=== PATIENT | female | born 1940 | race Two or more races ===

== ENCOUNTER → 2016-04-15 | Outpatient (CLI) | payer MEDICARE, MEDICAID ==
[~2016-04-15] MED LIST: FURO40TA4 PO; LISI-338 PO; METF500T4 PO; POTA20TA4 PO
--- NOTE | 2016-04-15 20:05 | CARD ---
APPROVED REPORT EXAM: Two-dimensional and M-mode echocardiogram with Doppler and color Doppler. Other Information Quality : GoodHR: 85bpm Rhythm : NSR INDICATION Dyspnea Peripheral Edema Hypertension/HCVD Chest Pain 2D DIMENSIONS RVDd2.3 (2.9-3.5cm)Left Atrium(2D)4.7 (1.6-4.0cm) IVSd0.9 (0.7-1.1cm)Aortic Root(2D)3.1 (2.0-3.7cm) LVDd4.9 (3.9-5.9cm)LVOT Diameter2.2 (1.8-2.4cm) PWd0.9 (0.7-1.1cm)LVDs4.4 (2.5-4.0cm) FS (%) 10.0 %SV24.6 ml LVEF(%)21.8 (>50%) Aortic Valve AoV Peak Mohit.118.4cm/sAoV VTI18.9cm AO Peak GR.5.6mmHgLVOT Peak Mohit.100.4cm/s AO Mean GR.3mmHgAVA (VMAX)3.17cm2 Mitral Valve MV E Ckitivqx505.4cm/sMV E Peak Gr.6mmHg MV DECEL [id number] A Lsbitryi38.1cm/s MV E Mean Gr.3mmHgE/A Ratio1.7 MV A [id number] Tricuspid Valve TR P. Otlljwmm736gf/sRAP QOCOLWQY3dgVg TR Peak Gr.87llPwGVIZ28doKn LEFT VENTRICLE The left ventricle is normal size. There is a mild in increase in left ventricular wall thickness. Le ft ventricle systolic function is moderately impaired. The Ejection Fraction is 25-30%. There is mode rate hypokinesis in the anteroseptal wall. There is hypokinesis in the apexand anterior wall. Transmi tral Doppler flow pattern is indicative of a restrictive diastolic dysfunction. There is no ventricul ar septal defect visualized. RIGHT VENTRICLE The right ventricle is normal size. The right ventricular systolic function is normal. ATRIA The left atrium is mildly dilated. The right atrium size is normal. The interatrial septum is intact with no evidence for an atrial septal defect or patent foramen ovale as noted on 2-D or Doppler imagi ng. AORTIC VALVE The aortic valve is trileaflet. The aortic valve is mildly thickened but opens well. Doppler and Bunn r Flow revealed no significant aortic regurgitation. There is no significant aortic valvular stenosis . MITRAL VALVE Mitral annular calcification is mild. There is no evidence of mitral valve prolapse. There is no mitr al valve stenosis. Doppler and Color Flow revealed mild mitral regurgitation. TRICUSPID VALVE The tricuspid valve is normal in structure. Doppler and Color Flow revealed moderate tricuspid regurg itation. There isevere pulmonary hypertension. The PA pressure was estimated at 70 mmHg. PULMONIC VALVE The pulmonary valve is normal in structure. Doppler and Color Flow revealed trace to mild pulmonic va lvular regurgitation. GREAT VESSELS The aortic root is normal in size. The ascending aorta is mildly dilated at 3.7 cm. The IVC is normal in size and collapses >50% with inspiration. PERICARDIAL EFFUSION There is mild pleural effusion. There is no pericardial effusion. Critical Notification Critical Value: No <Conclusion> The left ventricle is normal size. There is moderate hypokinesis in the anteroseptal wall. There is hypokinesis in the apexand anterior wall. There is a Grade II diastolic dysfunction with pseudonormalization There is no pericardial effusion. There is no mitral stenosis and a mild to moderate mitral regurgitation. The left atrium is enlarged. There is no aortic stenosis or regurgitation. Therright ventricle is not enlarged. Doppler and Color Flow revealed moderate tricuspid regurgitation. There isevere pulmonary hypertension. The PA pressure was estimated at 70 mmHg. There is mild pulmonic regurgitation
== END | disposition home or self-care (01) ==
LOC: ECHO 07:54
PROVIDERS: ATTEND Physician Assistant Medical
DX: I10 Essential (primary) hypertension (principal); R07.9 Chest pain, unspecified; R06.02 Shortness of breath; R60.9 Edema, unspecified; I27.2 Other secondary pulmonary hypertension; I34.0 Nonrheumatic mitral (valve) insufficiency; J90 Pleural effusion, not elsewhere classified; I37.1 Nonrheumatic pulmonary valve insufficiency
CPT/HCPCS: 93306

== ENCOUNTER 2016-05-02 22:16 | Inpatient (IN) | payer MEDICARE, MEDICAID ==
[~2016-05-02] VITALS: Ht 152.4 cm; Wt 74.4 kg
[2016-05-02] MEDS ORDERED: IPRATRPIUM/ALBUTEROL 0.5/2.5MG 3 ML NEBU. NEB ONE (22:45)
[2016-05-02 22:55] LABS: BASO % 0 % (0-3); EOS % 1 % (0-3); HEMATOCRIT 22.4 % (36.0-47.0); LYMPH # 1.3 x10^3/uL (1.0-4.8); LYMPH % 21 % (24-48); MEAN CORPUSCULAR HEMOGLOBIN 19 pg (25-35); MEAN CORPUSCULAR HGB CONC 30 g/dL (31-37); MEAN CORPUSCULAR VOLUME 64 fL (79-100); MONO % 11 % (0-9); NEUT % 67 % (31-73); PLATELET COUNT 321 x10^3/uL (140-400); RED BLOOD COUNT 3.49 x10^6/uL (3.50-5.40); RED CELL DISTRIBUTION WIDTH 18.7 % (11.5-14.5); WHITE BLOOD COUNT 6.4 x10^3/uL (4.0-11.0)
[2016-05-02 22:58] LABS: HEMOGLOBIN 6.7 g/dL (12.0-15.5)
[2016-05-02 23:04] LABS: CALCIUM 8.9 mg/dL (8.5-10.1); CREATININE 1.1 mg/dL (0.6-1.0); GFR 48.7; POTASSIUM 3.5 mmol/L (3.5-5.1)
[2016-05-02 23:10] LABS: ALBUMIN 3.1 g/dL (3.4-5.0); DIRECT BILIRUBIN 0.2 mg/dL (0.0-0.2); TOTAL BILIRUBIN 0.5 mg/dL (0.2-1.0); TOTAL PROTEIN 7.2 g/dL (6.4-8.2)
[2016-05-02 23:28] LABS: ANISOCYTOSIS SLIGHT; HYPOCHROMIA MARKED; MICROCYTOSIS MARKED; PLT ESTIMATE ADEQUATE (ADEQUATE); POLYCHROMASIA SLIGHT; SCHISTOCYTES OCC
[2016-05-02 23:37] LABS: INR 1.2 (0.8-1.1); PROTHROMBIN TIME PATIENT 14.6 SEC (11.7-14.0)
[2016-05-03] VITALS (18 sets, daily range): BP systolic 71–103; BP diastolic 47–75
[2016-05-03] MEDS ORDERED: ASPIRIN 81 MG TAB.CHEW PO ONE
[2016-05-03] MEDS ORDERED: MORPHINE SULFATE 2 MG/ML DISP.SYRIN. IV PRN
[2016-05-03] MEDS ORDERED: FUROSEMIDE 40 MG/4 ML VIAL IVP ONE
[2016-05-03] MEDS ORDERED: ONDANSETRON PF 4 MG/2 ML VIAL. IV PRN
[2016-05-03] MEDS ORDERED: POTA20TA4 PO (01:26)
[2016-05-03] MEDS ORDERED: LISI-338 PO (01:26)
[2016-05-03] MEDS ORDERED: METF500T4 PO (01:26)
[2016-05-03] MEDS ORDERED: FURO40TA4 PO (01:26)
--- NOTE | 2016-05-03 01:32 | PHYS DOC ---
Past Medical History Past Medical History: CHF, COPD, Diabetes-Type II, Other Additional Past Medical Histor: neuropathy Past Surgical History: Appendectomy, Cholecystectomy Alcohol Use: None Drug Use: None Adult General Chief Complaint Chief Complaint: SHORTNESS OF BREATH HPI HPI 75-year-old female presenting to the emergency department today with worsening shortness of breath. This started approximately 3 days ago she has had a dry hacking cough as well. She's noticed her leg swelling worse over the past few days. She was started on a diuretic by her doctor which initially started to improve her symptoms however over the past 3 days she has gotten worse. She has taken her inhaler at home with minimal relief. Location lungs. Duration intermittent. Worse with exertion. Worse at night. Review of systems is negative for chest pain nausea vomiting diaphoresis. She denies pain in her back or abdomen. She reports being pain-free. All other review of systems is negative unless otherwise noted in history of present illness. Review of Systems Review of Systems SEE ABOVE. Current Medications Current Medications Current Medications Medications (Trade) Dose Ordered Sig/Julio Start Time Stop Time Status Last Admin Dose Admin Albuterol/ Ipratropium (Duoneb) 3 ml 1X ONCE 05/02/16 22:45 05/02/16 23:51 DC 05/02/16 22:50 3 ML Allergies Allergies Allergies Coded Allergies Type Severity Reaction Last Updated Verified Penicillins Allergy Intermediate 05/02/16 Yes ibuprofen Allergy Intermediate 05/02/16 Yes Physical Exam Physical Exam Constitutional: Well developed, well nourished, patient has increased work of breathing and is tachypneic in the emergency department. HENT: Normocephalic, atraumatic, bilateral external ears normal, oropharynx moist, no oral exudates, nose normal. [] Eyes: PERRLA, EOMI, conjunctiva normal, no discharge. [] Neck: Normal range of motion, no tenderness, supple, no stridor. [] Cardiovascular:Heart rate regular rhythm, no murmur Lungs & Thorax: Patient has fine and coarse crackles on inspiration and expiration worse in the bases of the lungs. Abdomen: Bowel sounds normal, soft, no tenderness, no masses, no pulsatile masses. [] Skin: Warm, dry, no erythema, no rash. Back: No tenderness, no CVA tenderness. [] Extremities: No tenderness, no cyanosis, no clubbing, ROM intact, 3+ edema Neurologic: Alert and oriented X 3, normal motor function, normal sensory function, no focal deficits noted. [] Psychologic: Affect normal, judgement normal, mood normal. Current Patient Data Vital Signs Vital Signs Date Time Temp Pulse Resp B/P Pulse Ox O2 Delivery O2 Flow Rate FiO2 05/02/16 23:30 96 25 98/56 96 Nasal Cannula 2 05/02/16 22:36 97.9 97.9 Lab Values Laboratory Tests Test 05/02/16 22:45 White Blood Count 6.4x10^3/uL (4.0-11.0) Red Blood Count 3.49x10^6/uL (3.50-5.40) L Hemoglobin 6.7g/dL (12.0-15.5) *L Hematocrit 22.4% (36.0-47.0) L Mean Corpuscular Volume 64fL (79-100) L Mean Corpuscular Hemoglobin 19pg (25-35) L Mean Corpuscular Hemoglobin Concent 30g/dL (31-37) L Red Cell Distribution Width 18.7% (11.5-14.5) H Platelet Count 321x10^3/uL (140-400) Neutrophils (%) (Auto) 67% (31-73) Lymphocytes (%) (Auto) 21% (24-48) L Monocytes (%) (Auto) 11% (0-9) H Eosinophils (%) (Auto) 1% (0-3) Basophils (%) (Auto) 0% (0-3) Neutrophils # (Auto) 4.3x10^3uL (1.8-7.7) Lymphocytes # (Auto) 1.3x10^3/uL (1.0-4.8) Monocytes # (Auto) 0.7x10^3/uL (0.0-1.1) Eosinophils # (Auto) 0.0x10^3/uL (0.0-0.7) Basophils # (Auto) 0.0x10^3/uL (0.0-0.2) Platelet Estimate Adequate (ADEQUATE) Polychromasia Slight Hypochromasia Marked Anisocytosis Slight Microcytosis Marked Schistocytes Occ Prothrombin Time 14.6SEC (11.7-14.0) H Prothrombin Time INR 1.2 (0.8-1.1) H PTT 30SEC (24-38) Sodium Level 134mmol/L (136-145) L Potassium Level 3.5mmol/L (3.5-5.1) Chloride Level 97mmol/L (98-107) L Carbon Dioxide Level 23mmol/L (21-32) Anion Gap 14 (6-14) Blood Urea Nitrogen 27mg/dL (7-20) H Creatinine 1.1mg/dL (0.6-1.0) H Estimated GFR (Cockcroft-Gault) 48.7 Glucose Level 144mg/dL (70-99) H Calcium Level 8.9mg/dL (8.5-10.1) Total Bilirubin 0.5mg/dL (0.2-1.0) Direct Bilirubin 0.2mg/dL (0.0-0.2) Aspartate Amino Transferase (AST) 32U/L (15-37) Alanine Aminotransferase (ALT) 15U/L (14-59) Alkaline Phosphatase 79U/L (46-116) Troponin I Quantitative 3.986ng/mL (0.000-0.055) YZ-Czp-I-Type Natriuretic Peptide 45930ji/mL (0-124) H Total Protein 7.2g/dL (6.4-8.2) Albumin 3.1g/dL (3.4-5.0) L Lipase 164U/L (73-393) Laboratory Tests 05/02/16 22:45 Laboratory Tests 05/02/16 22:45 EKG EKG [] 2 EKGs performed on this patient. Initial EKG at 2030 performed while the patient was tachypneic and shows wandering baseline making isoelectric measuring imprecise. This EKG shows a sinus rhythm with a tachycardic rate. Anterior leads are difficult to interpret with varying baseline. Lateral leads and inferior leads are isoelectric. Repeat EKG performed at 2324 shows isoelectric in the anterior leads. This EKG does not meet STEMI criteria. I discussed the case with Dr. Gary who recommended treatment with aspirin and serial troponins. Radiology/Procedures Radiology/Procedures Chest x-ray shows pulmonary edema. [] Course & Med Decision Making Course & Med Decision Making Pertinent Labs and Imaging studies reviewed. (See chart for details) [] 75-year-old female presenting to the emergency department today with shortness of breath cough and weight gain. Vital signs showed hypoxia which improved after nasal cannula placement. The patient's initial EKG shows variable baseline in the anterior leads. Repeat EKG shows isoelectric ST segments. Patient was given aspirin. Discussed the case with our staff analyst team Dr. Gary. The patient was given Lasix. Chest x-ray shows pulmonary edema. Troponin positive. Hemoglobin significantly low. Patient denies dark stools. Rectal exam shows no blood on gross evaluation. Fecal occult testing sent. Transfusion ordered. Serial troponins ordered. Patient was then admitted to our hospital for further evaluation workup and care. Cardiology and pulmonology consult placed. Dragon Disclaimer Dragon Disclaimer This electronic medical record was generated, in whole or in part, using a voice recognition dictation system. Departure Departure Impression: Primary Impression: Hypoxia Additional Impressions: CHF exacerbation Anemia Disposition: ADMITTED INPATIENT Admitting Physician: Jeronimo Elizondo Condition: STABLE Referrals: JERONIMO ELIZONDO MD (PCP) Critical Care Time Critical care time was [40] minutes exclusive of procedures. Time was spent evaluating the patient, discussing with consulting providers, ordering the administration of medications, ordering the administration of blood products, discussing with the admitting provider and documenting. Problem Qualifiers VIC ABDI MD May 03, 2016 01:32
[2016-05-03] MEDS ORDERED: FUROSEMIDE 20 MG/2 ML VIAL IVP ONE (07:45)
--- NOTE | 2016-05-03 07:50 | PDOC ---
Provider Note Provider Note [id number] acute resp fail abnl cxr aute chf copd w mild ae anemia cardiology, gi consult, pepid RICHIE Ulrich MD May 03, 2016 07:50
--- NOTE | 2016-05-03 08:02 | RAD ---
Indication: Short of breath, history of pleural effusion, chest pain Technique: Upright portable chest radiograph was obtained. No comparison is available. Findings: Heart is borderline enlarged. Pulmonary vasculature and interstitial lung markings are increased. Costophrenic angles are minimally blunted. Presumed apical scarring bilaterally is relatively symmetric. Leads overlie the patient. Impression: Findings most suggestive of CHF.
[2016-05-03] MEDS: IPRATRPIUM/ALBUTEROL 0.5/2.5MG 3 ML NEBU. NEB SCH ×4 (08:30→19:18)
[2016-05-03] MEDS ORDERED: FAMOTIDINE 20 MG/2 ML VIAL IVP SCH (09:00)
--- NOTE | 2016-05-03 09:08 | RAD ---
Clinical Indication: Bilateral lower extremity edema, short of air. Technique: Study is dated May 03, 2016. Bal scale, color flow and spectral waveform analysis was performed of both lower extremities with and without compression. Findings: There is normal compressibility of all visualized vein segments. No evidence of DVT is present on grayscale or color images. There is normal phasicity of waveform. There is normal augmentation . Impression: No evidence of deep vein thrombosis in either lower extremity.
--- NOTE | 2016-05-03 09:11 | EKG ---
[facility] [address] [place] [address] Test Date: 2016-05-02 Test Time: 22:30:29 Pat Name: SATHISH MCGEE Department: Room: 105 1 Gender: F Carbonizer: : 1940 Requested By: VIC ABDI Order Number: [id number] Reading MD: Nanda Luna Measurements Intervals [place] Rate: 102 P: 31 VA: 142 QRS: -74 QRSD: 118 T: 72 QT: 342 QTc: 450 Interpretive Statements SINUS TACHYCARDIA ABNORMAL LEFT AXIS DEVIATION QRS(T) CONTOUR ABNORMALITY CONSISTENT WITH ANTERIOR INFARCT AGE UNDETERMINED ABNORMAL ECG RI6.01 No previous ECG available for comparison Electronically Signed On 05-03-2016 20:32:10 CDT by Nanda Luna
--- NOTE | 2016-05-03 09:11 | CONS ---
DATE OF CONSULTATION: 05/03/2016 PULMONARY CRITICAL CARE CONSULTATION NOTE LOCATION: The patient is in ICU. CHIEF COMPLAINT: I was asked to see this 75-year-old lady for acute respiratory failure. HISTORY OF PRESENT ILLNESS: She has history of 97-mett-muct smoking, continues to smoke about 1 pack per day. She has had shortness of breath and lower extremity edema for the past 3 weeks. She has had chest pain at times. Her lower extremity edema improved with taking Lasix, which was prescribed by her primary physician. Her shortness of breath did increase as she presented to the Emergency Room. She was admitted for further evaluation. She does have cough with czvrp-my-bjxnjq sputum production. She has had runny nose. She denies fever or chills. She has had occasional wheezing. PAST MEDICAL HISTORY: COPD, diabetes mellitus. PAST SURGICAL HISTORY: Appendectomy, cholecystectomy. ALLERGIES: PENICILLIN, IBUPROFEN. MEDICATIONS: Currently she is on aspirin. SOCIAL HISTORY: History of 33-bdlu-vmyf smoking, continues to smoke 1 pack per day. FAMILY HISTORY: Positive for asthma. REVIEW OF SYSTEMS: As mentioned above. The patient's hemoglobin was 6.7. The patient was given 2 units of blood. Other systems are otherwise negative. PHYSICAL EXAMINATION: GENERAL: This is a well-developed lady. VITAL SIGNS: Her O2 saturation on 2 liters of oxygen is 96%, respiratory rate 22, heart rate 83, blood pressure 94/75, temperature 97.7. HEENT: Normocephalic, atraumatic. Pupils are equal, round, and reactive to light. Throat is clear. Nose is clear. NECK: Positive JVD. No lymphadenopathy or thyromegaly. CARDIOVASCULAR: Regular rate and rhythm. PMI is not displaced. Distant heart sounds. CHEST: Inspection is normal. LUNGS: There are bibasilar crackles, a few end expiratory wheezing, dullness at the bases. ABDOMEN: Soft. Bowel sounds are good. There is no mass. EXTREMITIES: There is 2-3 lower extremity edema. LYMPHATICS: There is no lymphadenopathy. NEUROLOGIC: Alert and oriented x 3. SKIN: Chronic changes. LABORATORY DATA: I reviewed the following lab data: Chest x-ray shows increased vascular marking. WBC 6.4, hemoglobin 6.7, platelets 321. Sodium 134, potassium 3.5, chloride 97, CO2 is 23, BUN 27, creatinine 1.1, glucose 144, total bilirubin 0.5, AST 32, ALT 15, alkaline phosphatase 79. BNP 23,898, troponin 3.98. IMPRESSION: 1. Acute hypoxemic respiratory failure, multifactorial in etiology. 2. Abnormal chest x-ray. 3. Acute congestive heart failure, systolic versus diastolic. 4. Elevated troponin? and non-ST elevation myocardial infarction. 5. Acute kidney injury. 6. Anemia? etiology. 7. Chronic obstructive pulmonary disease with mild acute exacerbation. 8. Tobacco habituation. FINAL RECOMMENDATION: 1. I had a long discussion with her regarding smoking cessation. I have advised her to stop smoking forever. 2. Start bronchodilator. 3. Start Pulmicort. She may require systemic steroid. 4. Cardiology is consulted. She would require an echocardiogram as soon as possible and evaluation by software development test engineer as soon as possible. 5. I do recommend GI consultation. Meanwhile, I do start on Pepcid IV. 6. I do recommend lower extremity venous Doppler. 7. Monitor respiratory status very closely. The findings and recommendations were discussed with the patient and RN. I have answered all of the patient's questions. She understood and agreed to proceed with the plan. Thank you very much for allowing me to participate in care of this very nice lady. ISAAK LIMON DO DR: REBA/madison JOB#: [id number] / [id number]
--- NOTE | 2016-05-03 09:40 | EKG ---
[facility] [address] [place] [address] Test Date: 2016-05-02 Test Time: 23:24:28 Pat Name: SATHISH MCGEE Department: Room: 105 1 Gender: F Piano Instructor: : 1940 Requested By: DOYLE VILLA Order Number: [id number] Reading MD: Nanda Luna Measurements Intervals [place] Rate: 91 P: 167 [place]: 142 QRS: -55 QRSD: 120 T: 71 QT: 392 QTc: 484 Interpretive Statements SINUS RHYTHM ABNORMAL LEFT AXIS DEVIATION INTRA VENTRICULAR CONDUCTION DEFECT CONSIDER RIGHT VENTRICULAR HYPERTROPHY T ABNORMALITY IN HIGH LATERAL LEADS ABNORMAL ECG RI6.01 No previous ECG available for comparison Electronically Signed On 05-04-2016 15:07:58 CDT by Nanda Luna
[2016-05-03] MEDS ORDERED: HEPARIN for IV BOLUS 10,000 UNIT/10 ML VIAL. IV PRN (11:15)
[2016-05-03 11:28] LABS: BASO % 1 % (0-3); EOS % 1 % (0-3); HEMATOCRIT 29.1 % (36.0-47.0); HEMOGLOBIN 9.1 g/dL (12.0-15.5); LYMPH # 0.7 x10^3/uL (1.0-4.8); LYMPH % 9 % (24-48); MEAN CORPUSCULAR HEMOGLOBIN 21 pg (25-35); MEAN CORPUSCULAR HGB CONC 31 g/dL (31-37); MEAN CORPUSCULAR VOLUME 68 fL (79-100); MONO % 9 % (0-9); NEUT % 80 % (31-73); PLATELET COUNT 314 x10^3/uL (140-400); RED BLOOD COUNT 4.25 x10^6/uL (3.50-5.40); WHITE BLOOD COUNT 7.6 x10^3/uL (4.0-11.0)
--- NOTE | 2016-05-03 11:51 | CONS ---
DATE OF CONSULTATION: 05/03/2016 REASON FOR CONSULTATION: Ojm-ET-fytmgvvvj myocardial infarction. HISTORY OF PRESENT ILLNESS: The patient is a pleasant 75-year-old woman who comes in to the hospital with progressive dyspnea. She reports that over the course of the last 4-5 weeks she has had worsening dyspnea on exertion. She does not have any significant angina. Upon arrival to the ER yesterday, she was noted to have an elevated troponin to approximately 3. Unfortunately, at the same time, she also had anemia with a hemoglobin of 6.7. She had an echocardiogram prior to presenting to the ER approximately 2-3 weeks ago and she was noted to have severe LV systolic dysfunction with ingkgodd-ai-gnwamd pulmonary hypertension. She was due to see my partner, Dr. Ramos, in clinic next week, but unfortunately, due to progressive symptoms, arrived in the hospital. PAST MEDICAL HISTORY: 1. Diabetes. 2. Hypertension. SOCIAL HISTORY: The patient takes care of her 11-year-old grandchild. She used to be a smoker, but quit 6 weeks ago. She denies any alcohol or illicit drug use. She has six children. FAMILY HISTORY: Noncontributory. ALLERGIES: TO PENICILLINS AND IBUPROFEN. MEDICATIONS: Include: 1. Lasix 40 mg IV push x 1 today. 2. Aspirin 325 mg, given once. REVIEW OF SYSTEMS: Negative for 10 out of 14 systems reviewed, unless otherwise mentioned above in the HPI. PHYSICAL EXAMINATION: VITAL SIGNS: Afebrile, 100, 24, 93/54, pulse ox 100% on 2 liters. GENERAL: She is alert and oriented, but in mild distress from her dyspnea. HEAD AND NECK: Exam is unremarkable. CARDIAC: Regular rate and rhythm without any significant murmurs, rubs, gallops. LUNGS: Fairly clear except for mild bibasilar rales. ABDOMEN: Soft, nontender, nondistended. EXTREMITIES: Mild to trace edema. NEUROLOGIC: No focal deficits. MUSCULOSKELETAL: No trauma. DIAGNOSTIC STUDIES: Hemoglobin 6.7, repeat study pending; platelets 321. Creatinine 1.1, troponin 3.986, now increased to 4.8. INR 1.2. Lower extremity DVT scan does not reveal any significant pathology. Prior echocardiogram demonstrates EF of 30% with severe anteroseptal hypokinesis and wife-vz-dkxqpqva mitral and tricuspid regurgitation with severe pulmonary hypertension. IMPRESSION: 1. Acute on chronic systolic heart failure. 2. Severe pulmonary hypertension. 3. Moderate valvular heart disease including tricuspid and mitral regurgitation. 4. Qdr-HF-mdehqklxp myocardial infarction. 5. Diabetes. 6. Anemia. RECOMMENDATIONS: 1. We will obtain stat CBC and repeat q. 6 hours and monitor her hemoglobin. 2. For her mar-NU-itvdkbfrz myocardial infarction, we will start her on heparin drip and monitor her CBCs. Continue ASA 81mg daily. 3. She will ultimately benefit from a cardiac catheterization, but we will wait until stabilization of her hemoglobin. She did not have any obvious symptoms suggestive of lower GI or upper GI bleeding. She has fairly normal other cell lines otherwise with normal platelets, and therefore, suspect that she will likely do okay with cardiac catheterization and anticoagulation and antiplatelet therapy. 4. Consult GI to rule out occult bleeding issues. We will keep her in the ICU and monitor her closely and plan on evaluation on Thursday with a left and right heart cath. Thank you for this consultation. BEAU MARY MD DR: DC/madison JOB#: [id number] / [id number] TOMI
[2016-05-03] MEDS: HEPARIN 25,000UTS/500ML PREMIX 500 ML IV PRN (11:53)
[2016-05-03] MEDS: BUDESONIDE 0.5 MG/2 ML NEBU NEB SCH ×2 (12:08→19:18)
--- NOTE | 2016-05-03 13:26 | PDOC2 ---
CONSULT Date of Consult Date of Consult DATE: 05/03/16 TIME: 13:24 Reason for Consult Reason for Consult: Chronic blood loss anemia with nonstemi Current Problem List Problem List Problems Medical Problems: (1) Anemia Status: Acute (2) CHF exacerbation Status: Acute (3) Hypoxia Status: Acute Current Medications Current Medications Current Medications Albuterol/ Ipratropium (Duoneb) 3 ml 1X ONCE NEB Last administered on 22:50; Start 05/02/16 at 22:45; Stop 05/02/16 at 23:51; Status DC Aspirin (Children'S Aspirin) 324 mg 1X ONCE PO Last administered on 05/03/16 00:11; Start 05/03/16 at 00:00; Stop 05/03/16 at 00:01; Status DC Furosemide (Lasix) 40 mg 1X ONCE IVP Last administered on 05/03/16 00:11; Start 05/03/16 at 00:00; Stop 05/03/16 at 00:01; Status DC Ondansetron HCl (Zofran) 4 mg PRN Q8HRS PRN IV NAUSEA/VOMITING; Start 05/03/16 at 00:00; Stop 05/03/16 at 23:59 Morphine Sulfate 2 mg PRN Q2HR PRN IV SEVERE PAIN; Start 05/03/16 at 00:00; Stop 05/03/16 at 23:59 Famotidine (Pepcid) 20 mg DAILY IVP Last administered on 05/03/16 09:00; Start 05/03/16 at 09:00; Stop 05/03/16 at 11:41; Status DC Furosemide (Lasix) 20 mg 1X ONCE IVP Last administered on 05/03/16 08:17; Start 05/03/16 at 07:45; Stop 05/03/16 at 07:46; Status DC Albuterol/ Ipratropium (Duoneb) 3 ml RTQID NEB Last administered on 05/03/16 12:08; Start 05/03/16 at 08:00 Budesonide 0.5 mg 0.5 mg RTBID NEB Last administered on 05/03/16 12:08; Start 05/03/16 at 08:00 Heparin Sodium/ Dextrose 500 ml @ 0 mls/hr CONT PRN IV SEE I/O RECORD Last administered on 05/03/16t 11:53; Start 05/03/16 at 11:15 Heparin Sodium (Porcine) 1,850 unit PRN Q6HRS PRN IV FOR UFH LEVEL LESS THAN 0.2; Start 05/03/16 at 11:15 Aspirin (Ecotrin) 81 mg DAILYWBKFT PO ; Start 05/04/16 at 08:00 Pantoprazole Sodium (Protonix Vial) 40 mg DAILYAC IVP ; Start 05/04/16 at 07:30 Active Scripts Active Reported Metformin Hcl 500 Mg Tablet 1 Tab PO DAILY Lisinopril 5 Mg Tablet 1 Tab PO DAILY Klor-Con M20 (Potassium Chloride) 20 Meq Tab.er.prt 1 Tab PO 3X/WEEK Furosemide 40 Mg Tablet 1 Tab PO 3X/WEEK Allergies Allergies: Coded Allergies: Penicillins (Verified Allergy, Intermediate, 05/02/16) ibuprofen (Verified Allergy, Intermediate, 05/02/16) Vitals VITALS Vital Signs Date Time Temp Pulse Resp B/P Pulse Ox O2 Delivery O2 Flow Rate FiO2 05/03/16 12:12 97 Nasal Cannula 2.0 05/03/16 06:00 83 22 94/75 05/03/16 04:00 97.7 97.7 Labs Labs Laboratory Tests Test 05/02/16 22:45 05/03/16 07:15 05/03/16 11:00 White Blood Count 6.4x10^3/uL (4.0-11.0) 7.6x10^3/uL (4.0-11.0) Red Blood Count 3.49x10^6/uL (3.50-5.40) 4.25x10^6/uL (3.50-5.40) Hemoglobin 6.7g/dL (12.0-15.5) 9.1g/dL (12.0-15.5) Hematocrit 22.4% (36.0-47.0) 29.1% (36.0-47.0) Mean Corpuscular Volume 64fL (79-100) 68fL (79-100) Mean Corpuscular Hemoglobin 19pg (25-35) 21pg (25-35) Mean Corpuscular Hemoglobin Concent 30g/dL (31-37) 31g/dL (31-37) Red Cell Distribution Width 18.7% (11.5-14.5) 23.0% (11.5-14.5) Platelet Count 321x10^3/uL (140-400) 314x10^3/uL (140-400) Neutrophils (%) (Auto) 67% (31-73) 80% (31-73) Lymphocytes (%) (Auto) 21% (24-48) 9% (24-48) Monocytes (%) (Auto) 11% (0-9) 9% (0-9) Eosinophils (%) (Auto) 1% (0-3) 1% (0-3) Basophils (%) (Auto) 0% (0-3) 1% (0-3) Neutrophils # (Auto) 4.3x10^3uL (1.8-7.7) 6.1x10^3uL (1.8-7.7) Lymphocytes # (Auto) 1.3x10^3/uL (1.0-4.8) 0.7x10^3/uL (1.0-4.8) Monocytes # (Auto) 0.7x10^3/uL (0.0-1.1) 0.7x10^3/uL (0.0-1.1) Eosinophils # (Auto) 0.0x10^3/uL (0.0-0.7) 0.0x10^3/uL (0.0-0.7) Basophils # (Auto) 0.0x10^3/uL (0.0-0.2) 0.0x10^3/uL (0.0-0.2) Platelet Estimate Adequate (ADEQUATE) Polychromasia Slight Hypochromasia Marked Anisocytosis Slight Microcytosis Marked Schistocytes Occ Prothrombin Time 14.6SEC (11.7-14.0) Prothromb Time International Ratio 1.2 (0.8-1.1) Activated Partial Thromboplast Time 30SEC (24-38) Sodium Level 134mmol/L (136-145) Potassium Level 3.5mmol/L (3.5-5.1) Chloride Level 97mmol/L (98-107) Carbon Dioxide Level 23mmol/L (21-32) Anion Gap 14 (6-14) Blood Urea Nitrogen 27mg/dL (7-20) Creatinine 1.1mg/dL (0.6-1.0) Estimated GFR (Cockcroft-Gault) 48.7 Glucose Level 144mg/dL (70-99) Calcium Level 8.9mg/dL (8.5-10.1) Total Bilirubin 0.5mg/dL (0.2-1.0) Direct Bilirubin 0.2mg/dL (0.0-0.2) Aspartate Amino Transf (AST/SGOT) 32U/L (15-37) Alanine Aminotransferase (ALT/SGPT) 15U/L (14-59) Alkaline Phosphatase 79U/L (46-116) Troponin I Quantitative 3.986ng/mL (0.000-0.055) 4.842ng/mL (0.000-0.055) 4.278ng/mL (0.000-0.055) DC-Omp-F-Type Natriuretic Peptide 64515vy/mL (0-124) Total Protein 7.2g/dL (6.4-8.2) Albumin 3.1g/dL (3.4-5.0) Lipase 164U/L (73-393) Laboratory Tests Test 05/02/16 22:45 05/03/16 07:15 05/03/16 11:00 White Blood Count 6.4x10^3/uL (4.0-11.0) 7.6x10^3/uL (4.0-11.0) Red Blood Count 3.49x10^6/uL (3.50-5.40) 4.25x10^6/uL (3.50-5.40) Hemoglobin 6.7g/dL (12.0-15.5) 9.1g/dL (12.0-15.5) Hematocrit 22.4% (36.0-47.0) 29.1% (36.0-47.0) Mean Corpuscular Volume 64fL (79-100) 68fL (79-100) Mean Corpuscular Hemoglobin 19pg (25-35) 21pg (25-35) Mean Corpuscular Hemoglobin Concent 30g/dL (31-37) 31g/dL (31-37) Red Cell Distribution Width 18.7% (11.5-14.5) 23.0% (11.5-14.5) Platelet Count 321x10^3/uL (140-400) 314x10^3/uL (140-400) Neutrophils (%) (Auto) 67% (31-73) 80% (31-73) Lymphocytes (%) (Auto) 21% (24-48) 9% (24-48) Monocytes (%) (Auto) 11% (0-9) 9% (0-9) Eosinophils (%) (Auto) 1% (0-3) 1% (0-3) Basophils (%) (Auto) 0% (0-3) 1% (0-3) Neutrophils # (Auto) 4.3x10^3uL (1.8-7.7) 6.1x10^3uL (1.8-7.7) Lymphocytes # (Auto) 1.3x10^3/uL (1.0-4.8) 0.7x10^3/uL (1.0-4.8) Monocytes # (Auto) 0.7x10^3/uL (0.0-1.1) 0.7x10^3/uL (0.0-1.1) Eosinophils # (Auto) 0.0x10^3/uL (0.0-0.7) 0.0x10^3/uL (0.0-0.7) Basophils # (Auto) 0.0x10^3/uL (0.0-0.2) 0.0x10^3/uL (0.0-0.2) Platelet Estimate Adequate (ADEQUATE) Polychromasia Slight Hypochromasia Marked Anisocytosis Slight Microcytosis Marked Schistocytes Occ Prothrombin Time 14.6SEC (11.7-14.0) Prothromb Time International Ratio 1.2 (0.8-1.1) Activated Partial Thromboplast Time 30SEC (24-38) Sodium Level 134mmol/L (136-145) Potassium Level 3.5mmol/L (3.5-5.1) Chloride Level 97mmol/L (98-107) Carbon Dioxide Level 23mmol/L (21-32) Anion Gap 14 (6-14) Blood Urea Nitrogen 27mg/dL (7-20) Creatinine 1.1mg/dL (0.6-1.0) Estimated GFR (Cockcroft-Gault) 48.7 Glucose Level 144mg/dL (70-99) Calcium Level 8.9mg/dL (8.5-10.1) Total Bilirubin 0.5mg/dL (0.2-1.0) Direct Bilirubin 0.2mg/dL (0.0-0.2) Aspartate Amino Transf (AST/SGOT) 32U/L (15-37) Alanine Aminotransferase (ALT/SGPT) 15U/L (14-59) Alkaline Phosphatase 79U/L (46-116) Troponin I Quantitative 3.986ng/mL (0.000-0.055) 4.842ng/mL (0.000-0.055) 4.278ng/mL (0.000-0.055) VD-Mrw-B-Type Natriuretic Peptide 35336un/mL (0-124) Total Protein 7.2g/dL (6.4-8.2) Albumin 3.1g/dL (3.4-5.0) Lipase 164U/L (73-393) Assessment/Plan Assessment/Plan Chronic blood loss anemia- with weight loss, differential inlcudes; PUD, gastric /colon malignancy, AVMS, IBD, BM dysfunction, and/or celiac disease. Plan iron parameters/retic count/b12 levels await cardiac evaluation egd/colonoscopy after cleared with cardiology most likely as o/p Full note dictated JENNIFER PACHECO MD May 03, 2016 13:26
--- NOTE | 2016-05-03 15:15 | PDOC ---
GENERAL General: see dictated H&P. Problems: VITAL SIGNS Vital Signs: Vital Signs Date Time Temp Pulse Resp B/P Pulse Ox O2 Delivery O2 Flow Rate FiO2 05/03/16 12:12 97 Nasal Cannula 2.0 05/03/16 06:00 83 22 94/75 05/03/16 04:00 97.7 97.7 I & O I & O Intake and Output 05/03/16 07:00 Intake Total 900 ml Balance 900 ml Intake Oral 250 ml Blood Product 650 ml # Voids 2 ALLERGIES Allergies: Allergies Coded Allergies Type Severity Reaction Last Updated Verified Penicillins Allergy Intermediate 05/02/16 Yes ibuprofen Allergy Intermediate 05/02/16 Yes MEDS Medications: Current Medications Medications (Trade) Dose Ordered Sig/Julio Start Time Stop Time Status Last Admin Dose Admin Albuterol/ Ipratropium (Duoneb) 3 ml RTQID 05/03/16 08:00 05/03/16 12:08 3 ML Aspirin (Children'S Aspirin) 324 mg 1X ONCE 05/03/16 00:00 05/03/16 00:01 DC 05/03/16 00:11 324 MG Aspirin (Ecotrin) 81 mg DAILYWBKFT 05/04/16 08:00 Budesonide 0.5 mg 0.5 mg RTBID 05/03/16 08:00 05/03/16 12:08 0.5 MG Famotidine (Pepcid) 20 mg DAILY 05/03/16 09:00 05/03/16 11:41 DC 05/03/16 09:00 20 MG Furosemide (Lasix) 20 mg 1X ONCE 05/03/16 07:45 05/03/16 07:46 DC 05/03/16 08:17 20 MG Heparin Sodium (Porcine) 1,850 unit PRN Q6HRS PRN 05/03/16 11:15 Heparin Sodium/ Dextrose 500 ml @ 0 mls/hr CONT PRN 05/03/16 11:15 05/03/16 11:53 18 MLS/HR Morphine Sulfate 2 mg PRN Q2HR PRN 05/03/16 00:00 05/03/16 23:59 Ondansetron HCl (Zofran) 4 mg PRN Q8HRS PRN 05/03/16 00:00 05/03/16 23:59 Pantoprazole Sodium (Protonix Vial) 40 mg DAILYAC 05/04/16 07:30 LAB Lab: Laboratory Tests Test 05/02/16 22:45 05/03/16 01:52 05/03/16 07:15 05/03/16 11:00 White Blood Count 6.4x10^3/uL (4.0-11.0) 7.6x10^3/uL (4.0-11.0) Red Blood Count 3.49x10^6/uL (3.50-5.40) 4.25x10^6/uL (3.50-5.40) Hemoglobin 6.7g/dL (12.0-15.5) 9.1g/dL (12.0-15.5) Hematocrit 22.4% (36.0-47.0) 29.1% (36.0-47.0) Mean Corpuscular Volume 64fL (79-100) 68fL (79-100) Mean Corpuscular Hemoglobin 19pg (25-35) 21pg (25-35) Mean Corpuscular Hemoglobin Concent 30g/dL (31-37) 31g/dL (31-37) Red Cell Distribution Width 18.7% (11.5-14.5) 23.0% (11.5-14.5) Platelet Count 321x10^3/uL (140-400) 314x10^3/uL (140-400) Neutrophils (%) (Auto) 67% (31-73) 80% (31-73) Lymphocytes (%) (Auto) 21% (24-48) 9% (24-48) Monocytes (%) (Auto) 11% (0-9) 9% (0-9) Eosinophils (%) (Auto) 1% (0-3) 1% (0-3) Basophils (%) (Auto) 0% (0-3) 1% (0-3) Neutrophils # (Auto) 4.3x10^3uL (1.8-7.7) 6.1x10^3uL (1.8-7.7) Lymphocytes # (Auto) 1.3x10^3/uL (1.0-4.8) 0.7x10^3/uL (1.0-4.8) Monocytes # (Auto) 0.7x10^3/uL (0.0-1.1) 0.7x10^3/uL (0.0-1.1) Eosinophils # (Auto) 0.0x10^3/uL (0.0-0.7) 0.0x10^3/uL (0.0-0.7) Basophils # (Auto) 0.0x10^3/uL (0.0-0.2) 0.0x10^3/uL (0.0-0.2) Platelet Estimate Adequate (ADEQUATE) Polychromasia Slight Hypochromasia Marked Anisocytosis Slight Microcytosis Marked Schistocytes Occ Prothrombin Time 14.6SEC (11.7-14.0) Prothromb Time International Ratio 1.2 (0.8-1.1) Activated Partial Thromboplast Time 30SEC (24-38) Sodium Level 134mmol/L (136-145) Potassium Level 3.5mmol/L (3.5-5.1) Chloride Level 97mmol/L (98-107) Carbon Dioxide Level 23mmol/L (21-32) Anion Gap 14 (6-14) Blood Urea Nitrogen 27mg/dL (7-20) Creatinine 1.1mg/dL (0.6-1.0) Estimated GFR (Cockcroft-Gault) 48.7 Glucose Level 144mg/dL (70-99) Calcium Level 8.9mg/dL (8.5-10.1) Total Bilirubin 0.5mg/dL (0.2-1.0) Direct Bilirubin 0.2mg/dL (0.0-0.2) Aspartate Amino Transf (AST/SGOT) 32U/L (15-37) Alanine Aminotransferase (ALT/SGPT) 15U/L (14-59) Alkaline Phosphatase 79U/L (46-116) Troponin I Quantitative 3.986ng/mL (0.000-0.055) 4.842ng/mL (0.000-0.055) 4.278ng/mL (0.000-0.055) MJ-Lww-O-Type Natriuretic Peptide 63993ap/mL (0-124) Total Protein 7.2g/dL (6.4-8.2) Albumin 3.1g/dL (3.4-5.0) Lipase 164U/L (73-393) Nasal Screen MRSA (PCR) Negative (Negative) KUMAR AGUDELO MD May 03, 2016 15:15
[2016-05-03 17:32] LABS: % SAT IRON 3 % (15-34); IRON,SERUM 14 ug/dL (50-170)
[2016-05-03 18:21] LABS: HEMATOCRIT 27.7 % (36.0-47.0); HEMOGLOBIN 8.9 g/dL (12.0-15.5); RED BLOOD COUNT 4.12 x10^6/uL (3.50-5.40); RED CELL DISTRIBUTION WIDTH 22.4 % (11.5-14.5); WHITE BLOOD COUNT 7.3 x10^3/uL (4.0-11.0)
[2016-05-04] VITALS (17 sets, daily range): BP systolic 79–107; BP diastolic 42–62
--- NOTE | 2016-05-04 01:04 | CONS ---
DATE OF CONSULTATION: 05/03/2016 REFERRING PHYSICIAN: Dr. Jeronimo Elizondo. REASON FOR CONSULTATION: Chronic blood loss anemia and weight loss as well as recent [place]. HISTORY OF PRESENT ILLNESS: This is a 75-year-old female with past medical history significant for COPD, diabetes, status post appendectomy, and cholecystectomy, admitted to [facility] with worsening chest pain and shortness of breath. She has also had increased fatigue ____ found to have a non-STEMI as well as severe anemia. She denies any melena, hematochezia, hematemesis, dysphagia, odynophagia, or significant heartburn. Weight and appetite have been stable until she began dieting three months ago; at which time, she lost 50 pounds. There is no family history of colon polyps or colon cancer. She has not undergone colonoscopy. She is otherwise without additional complaints presently. PAST MEDICAL HISTORY: COPD, diabetes, appendectomy, cholecystectomy, and chronic blood loss anemia. ALLERGIES: PENICILLIN AND IBUPROFEN. MEDICATIONS: Include aspirin and Protonix. SOCIAL HISTORY: She is a 99-teff-lsgt history smoker, does not drink. FAMILY HISTORY: Noncontributory. REVIEW OF SYSTEMS: As per records. PHYSICAL EXAMINATION: GENERAL: Reveals a well-nourished, well-developed female. VITAL SIGNS: Temperature 97.7, pulse 83, respiratory rate 22, blood pressure is 94/75. HEENT: Reveals normocephalic and atraumatic head. Pupils and extraocular muscles not tested. Sclerae anicteric. NECK: Supple. LUNGS: Clear. CARDIOVASCULAR: Reveals an S1, S2 without S3, S4, or appreciable murmur. ABDOMEN: Soft abdomen, normal bowel sounds, without appreciable hepatosplenomegaly with surgical incisions. EXTREMITIES: Reveals no cyanosis, clubbing, or edema. LABORATORY STUDIES: Sodium 134, potassium 3.5, chloride 97, bicarbonate is 23, BUN 27, creatinine 1.1, glucose 144, calcium is 8.9. Total bilirubin 0.5, direct bilirubin 0.2, AST of 32, ALT of 15, alkaline phosphatase of 79. Troponin is 4.8, total protein 7.2, albumin 3.1, lipase is 164. Hemoglobin on admission 6.7, now is 9.1; hematocrit is 29.1; white count is 7.6; and platelet count is 314,000. INR is 1.2. IMPRESSION: Chronic blood loss anemia with weight loss with non-ST elevation myocardial infarction, etiology to be determined. Differential includes colonic polyps, ____ stomach or colon, inflammatory bowel disease, peptic ulcer disease, arteriovenous malformations, bone marrow dysfunction. Therefore, recommend B12, retic, and folate levels as well as iron stores, will await cardiac evaluation. Eventually, esophagogastroduodenoscopy and colonoscopy will be recommended to further assess symptoms. I would like to thank, Dr. Elizondo, for allowing us to consult and participate in the patient's care. JENNIFER PACHECO MD DR: PRICILLA/madison JOB#: [id number] / [id number]
--- NOTE | 2016-05-04 06:22 | ACF ---
Admission Forms Criteria HEART FAILURE: COMMON COMPLICATIONS Clinical Indications for Inpatient Care (Place 'X' for any and all applicable criteria): Ongoing inpatient care may be indicated for heart failure with ANY ONE of the following (1)(2)(3)(4)(5): [ ]I. Ongoing need for care for primary condition requiring frequent therapy adjustments because of changes in cardiac function (eg, drug dosage changes for drugs that are renally metabolized) [ ]II. New-onset heart failure [ ]III. Heart failure with decreased urine output not responsive to attempts to optimize volume status [ ]IV. Acute cardiac ischemia causing or associated with failure [X]V. Complications of heart failure, including ANY ONE of the following: [ ]a) Pericardial effusion [ ]b) Symptomatic pleural effusion [ ]c) O2 saturation <90% or PO2 < 60 mm Hg (8.0 kPa) on room air or require baseline supplemental O2 [ ]d) Tachypnea [X]e) Dyspnea [ ]f) Syncope [ ]g) Change in mental status [ ]h) Acute renal insufficiency that is severe (reduction of more than 50% in estimated glomerular filtration rate from baseline) or progressive reduction of more than 25% in estimated glomerular filtration rate from baseline, with creatinine continuing to rise) [ ]i) Hemodynamic instability [ ]j) Anasarca [ ]k) Clinically significant metabolic abnormalities due to heart failure (eg, new-onset metabolic acidosis) Extended stay beyond goal length of stay for primary condition may be needed until ALL of the following are present(1)(3): [ ]a) Stable and effective diuretic regimen established (or patient on stable dialysis regimen if in chronic renal failure) [ ]b) Breathing comfortably at rest [ ]c) Saturation of arterial oxygen greater than 90% or at acceptable baseline [ ]d) Pulmonary edema absent or improved [ ]e) Hemodynamic stability [ ]f) Volume status acceptable on oral medication [ ]g) Peripheral or sacral edema absent or improved [ ]h) Renal function stable and manageable at a lower level of care [ ]i) Complications (eg, pleural effusion) resolved or manageable at a lower level of care [ ]j) Patient or caregiver has received written discharge instructions or educational material addressing activity level, diet, discharge medications, follow-up appointment, weight monitoring, and what to do if symptoms worsen The original [employer] content created by [employer] has been revised. The portions of the content which have been revised are identified through the use of italic text or in bold, and [facility] has neither reviewed nor approved the modified material.All other unmodified content is copyright [facility]. Please see references footnoted in the original [facility] edition 2016 Admission Criteria Met?: Yes MARY GUERRERO May 04, 2016 06:22
[2016-05-04 06:38] LABS: BASO % 1 % (0-3); EOS % 1 % (0-3); HEMATOCRIT 26.7 % (36.0-47.0); HEMOGLOBIN 8.6 g/dL (12.0-15.5); LYMPH # 1.4 x10^3/uL (1.0-4.8); LYMPH % 17 % (24-48); MEAN CORPUSCULAR HEMOGLOBIN 22 pg (25-35); MEAN CORPUSCULAR HGB CONC 32 g/dL (31-37); MEAN CORPUSCULAR VOLUME 67 fL (79-100); MONO % 11 % (0-9); NEUT % 71 % (31-73); PLATELET COUNT 298 x10^3/uL (140-400); RED BLOOD COUNT 3.96 x10^6/uL (3.50-5.40); RED CELL DISTRIBUTION WIDTH 22.8 % (11.5-14.5); WHITE BLOOD COUNT 8.4 x10^3/uL (4.0-11.0)
--- NOTE | 2016-05-04 07:00 | PDOC ---
PULMONARY PROGRESS NOTES Subjective has sob, cough, didnt sleep, no cp. on hep gtt Vitals Vital Signs Date Time Temp Pulse Resp B/P Pulse Ox O2 Delivery O2 Flow Rate FiO2 05/04/16 06:00 86 20 93/56 93 Room Air 05/04/16 04:00 98.0 98.0 05/03/16 17:00 1.0 Comments ros as mentioned as above other sys otherwise neg ROS: No Nausea, No Chest Pain General: Alert, Oriented X4 HEENT: Other (nc at perrl, throat nose clear) Lungs: Crackles Cardiovascular: S1, S2 Abdomen: Soft, Non-tender, Other (no mass) Neuro Exam: Alert, Oriented Extremities: Other (edema) Skin: Warm Labs Laboratory Tests Test 05/02/16 18:00 05/02/16 22:45 05/03/16 01:52 05/03/16 07:15 Iron Level 14ug/dL (50-170) Total Iron Binding Capacity 452ug/dL (250-450) Iron Saturation 3% (15-34) White Blood Count 6.4x10^3/uL (4.0-11.0) Red Blood Count 3.49x10^6/uL (3.50-5.40) Hemoglobin 6.7g/dL (12.0-15.5) Hematocrit 22.4% (36.0-47.0) Mean Corpuscular Volume 64fL (79-100) Mean Corpuscular Hemoglobin 19pg (25-35) Mean Corpuscular Hemoglobin Concent 30g/dL (31-37) Red Cell Distribution Width 18.7% (11.5-14.5) Platelet Count 321x10^3/uL (140-400) Neutrophils (%) (Auto) 67% (31-73) Lymphocytes (%) (Auto) 21% (24-48) Monocytes (%) (Auto) 11% (0-9) Eosinophils (%) (Auto) 1% (0-3) Basophils (%) (Auto) 0% (0-3) Neutrophils # (Auto) 4.3x10^3uL (1.8-7.7) Lymphocytes # (Auto) 1.3x10^3/uL (1.0-4.8) Monocytes # (Auto) 0.7x10^3/uL (0.0-1.1) Eosinophils # (Auto) 0.0x10^3/uL (0.0-0.7) Basophils # (Auto) 0.0x10^3/uL (0.0-0.2) Platelet Estimate Adequate (ADEQUATE) Polychromasia Slight Hypochromasia Marked Anisocytosis Slight Microcytosis Marked Schistocytes Occ Prothrombin Time 14.6SEC (11.7-14.0) Prothromb Time International Ratio 1.2 (0.8-1.1) Activated Partial Thromboplast Time 30SEC (24-38) Sodium Level 134mmol/L (136-145) Potassium Level 3.5mmol/L (3.5-5.1) Chloride Level 97mmol/L (98-107) Carbon Dioxide Level 23mmol/L (21-32) Anion Gap 14 (6-14) Blood Urea Nitrogen 27mg/dL (7-20) Creatinine 1.1mg/dL (0.6-1.0) Estimated GFR (Cockcroft-Gault) 48.7 Glucose Level 144mg/dL (70-99) Calcium Level 8.9mg/dL (8.5-10.1) Total Bilirubin 0.5mg/dL (0.2-1.0) Direct Bilirubin 0.2mg/dL (0.0-0.2) Aspartate Amino Transf (AST/SGOT) 32U/L (15-37) Alanine Aminotransferase (ALT/SGPT) 15U/L (14-59) Alkaline Phosphatase 79U/L (46-116) Troponin I Quantitative 3.986ng/mL (0.000-0.055) 4.842ng/mL (0.000-0.055) JE-Ngj-W-Type Natriuretic Peptide 39259hr/mL (0-124) Total Protein 7.2g/dL (6.4-8.2) Albumin 3.1g/dL (3.4-5.0) Lipase 164U/L (73-393) Nasal Screen MRSA (PCR) Negative (Negative) Test 05/03/16 11:00 05/03/16 18:10 05/04/16 00:15 05/04/16 06:20 White Blood Count 7.6x10^3/uL (4.0-11.0) 7.3x10^3/uL (4.0-11.0) Red Blood Count 4.25x10^6/uL (3.50-5.40) 4.12x10^6/uL (3.50-5.40) Hemoglobin 9.1g/dL (12.0-15.5) 8.9g/dL (12.0-15.5) Hematocrit 29.1% (36.0-47.0) 27.7% (36.0-47.0) Mean Corpuscular Volume 68fL (79-100) 67fL (79-100) Mean Corpuscular Hemoglobin 21pg (25-35) 22pg (25-35) Mean Corpuscular Hemoglobin Concent 31g/dL (31-37) 32g/dL (31-37) Red Cell Distribution Width 23.0% (11.5-14.5) 22.4% (11.5-14.5) Platelet Count 314x10^3/uL (140-400) 294x10^3/uL (140-400) Neutrophils (%) (Auto) 80% (31-73) Lymphocytes (%) (Auto) 9% (24-48) Monocytes (%) (Auto) 9% (0-9) Eosinophils (%) (Auto) 1% (0-3) Basophils (%) (Auto) 1% (0-3) Neutrophils # (Auto) 6.1x10^3uL (1.8-7.7) Lymphocytes # (Auto) 0.7x10^3/uL (1.0-4.8) Monocytes # (Auto) 0.7x10^3/uL (0.0-1.1) Eosinophils # (Auto) 0.0x10^3/uL (0.0-0.7) Basophils # (Auto) 0.0x10^3/uL (0.0-0.2) Troponin I Quantitative 4.278ng/mL (0.000-0.055) Heparin Anti-Xa Act, Unfractionated 0.16IU/mL (0.30-0.70) 0.31IU/mL (0.30-0.70) Reticulocyte Count (auto) 2.5% (0.5-2.5) Test 05/04/16 06:25 White Blood Count 8.4x10^3/uL (4.0-11.0) Red Blood Count 3.96x10^6/uL (3.50-5.40) Hemoglobin 8.6g/dL (12.0-15.5) Hematocrit 26.7% (36.0-47.0) Mean Corpuscular Volume 67fL (79-100) Mean Corpuscular Hemoglobin 22pg (25-35) Mean Corpuscular Hemoglobin Concent 32g/dL (31-37) Red Cell Distribution Width 22.8% (11.5-14.5) Platelet Count 298x10^3/uL (140-400) Neutrophils (%) (Auto) 71% (31-73) Lymphocytes (%) (Auto) 17% (24-48) Monocytes (%) (Auto) 11% (0-9) Eosinophils (%) (Auto) 1% (0-3) Basophils (%) (Auto) 1% (0-3) Neutrophils # (Auto) 5.9x10^3uL (1.8-7.7) Lymphocytes # (Auto) 1.4x10^3/uL (1.0-4.8) Monocytes # (Auto) 0.9x10^3/uL (0.0-1.1) Eosinophils # (Auto) 0.1x10^3/uL (0.0-0.7) Basophils # (Auto) 0.0x10^3/uL (0.0-0.2) Heparin Anti-Xa Act, Unfractionated 0.29IU/mL (0.30-0.70) Laboratory Tests Test 05/03/16 07:15 05/03/16 11:00 05/03/16 18:10 05/04/16 00:15 Troponin I Quantitative 4.842ng/mL (0.000-0.055) 4.278ng/mL (0.000-0.055) White Blood Count 7.6x10^3/uL (4.0-11.0) 7.3x10^3/uL (4.0-11.0) Red Blood Count 4.25x10^6/uL (3.50-5.40) 4.12x10^6/uL (3.50-5.40) Hemoglobin 9.1g/dL (12.0-15.5) 8.9g/dL (12.0-15.5) Hematocrit 29.1% (36.0-47.0) 27.7% (36.0-47.0) Mean Corpuscular Volume 68fL (79-100) 67fL (79-100) Mean Corpuscular Hemoglobin 21pg (25-35) 22pg (25-35) Mean Corpuscular Hemoglobin Concent 31g/dL (31-37) 32g/dL (31-37) Red Cell Distribution Width 23.0% (11.5-14.5) 22.4% (11.5-14.5) Platelet Count 314x10^3/uL (140-400) 294x10^3/uL (140-400) Neutrophils (%) (Auto) 80% (31-73) Lymphocytes (%) (Auto) 9% (24-48) Monocytes (%) (Auto) 9% (0-9) Eosinophils (%) (Auto) 1% (0-3) Basophils (%) (Auto) 1% (0-3) Neutrophils # (Auto) 6.1x10^3uL (1.8-7.7) Lymphocytes # (Auto) 0.7x10^3/uL (1.0-4.8) Monocytes # (Auto) 0.7x10^3/uL (0.0-1.1) Eosinophils # (Auto) 0.0x10^3/uL (0.0-0.7) Basophils # (Auto) 0.0x10^3/uL (0.0-0.2) Heparin Anti-Xa Act, Unfractionated 0.16IU/mL (0.30-0.70) 0.31IU/mL (0.30-0.70) Test 05/04/16 06:20 05/04/16 06:25 Reticulocyte Count (auto) 2.5% (0.5-2.5) White Blood Count 8.4x10^3/uL (4.0-11.0) Red Blood Count 3.96x10^6/uL (3.50-5.40) Hemoglobin 8.6g/dL (12.0-15.5) Hematocrit 26.7% (36.0-47.0) Mean Corpuscular Volume 67fL (79-100) Mean Corpuscular Hemoglobin 22pg (25-35) Mean Corpuscular Hemoglobin Concent 32g/dL (31-37) Red Cell Distribution Width 22.8% (11.5-14.5) Platelet Count 298x10^3/uL (140-400) Neutrophils (%) (Auto) 71% (31-73) Lymphocytes (%) (Auto) 17% (24-48) Monocytes (%) (Auto) 11% (0-9) Eosinophils (%) (Auto) 1% (0-3) Basophils (%) (Auto) 1% (0-3) Neutrophils # (Auto) 5.9x10^3uL (1.8-7.7) Lymphocytes # (Auto) 1.4x10^3/uL (1.0-4.8) Monocytes # (Auto) 0.9x10^3/uL (0.0-1.1) Eosinophils # (Auto) 0.1x10^3/uL (0.0-0.7) Basophils # (Auto) 0.0x10^3/uL (0.0-0.2) Heparin Anti-Xa Act, Unfractionated 0.29IU/mL (0.30-0.70) Medications Active Scripts Medications Dose Route/Sig Days Date Category Metformin Hcl 500 Mg Tablet 1 Tab PO DAILY 05/03/16 Reported Lisinopril 5 Mg Tablet 1 Tab PO DAILY 05/03/16 Reported Klor-Con M20 (Potassium Chloride) 20 Meq Tab.er.prt 1 Tab PO 3X/WEEK 05/03/16 Reported Furosemide 40 Mg Tablet 1 Tab PO 3X/WEEK 05/03/16 Reported Comments cxr reviewed, Heart is borderline enlarged. Pulmonary vasculature and interstitial lung markings are increased. Costophrenic angles are minimally blunted. Presumed apical scarring bilaterally is relatively symmetric. Leads overlie the patient. Impression . IMPRESSION: 1. Acute hypoxemic respiratory failure, multifactorial in etiology. 2. Abnormal chest x-ray. 3. Acute systolic congestive heart failure. 4. non-ST elevation myocardial infarction. 5. Acute kidney injury. 6. Anemia? etiology. 7. Chronic obstructive pulmonary disease with mild acute exacerbation. 8. Tobacco habituation. PLAN AND RECOMMENDATION: 1. I had a long discussion with her regarding smoking cessation. I have advised her to stop smoking forever. 2. bronchodilator. 3. Pulmicort. She may require systemic steroid. 4. cardiac cath in am. 5. GI consulted. Meanwhile, Pepcid IV. 6. neg lower extremity venous Doppler. 7. Monitor respiratory status very closely. 8. keep I<O, lasix, monitor k, cr discussed w pt, rn RICHIE COLVIN MD May 04, 2016 07:00
[2016-05-04 07:01] LABS: CALCIUM 8.7 mg/dL (8.5-10.1); CREATININE 0.9 mg/dL (0.6-1.0); GFR 61.4; POTASSIUM 3.8 mmol/L (3.5-5.1)
[2016-05-04] MEDS: BUDESONIDE 0.5 MG/2 ML NEBU NEB SCH ×2 (08:47→19:51)
[2016-05-04] MEDS: IPRATRPIUM/ALBUTEROL 0.5/2.5MG 3 ML NEBU. NEB SCH ×4 (08:47→19:51)
[2016-05-04] MEDS: PANTOPRAZOLE IV PUSH 40 MG VIAL. IVP SCH (09:40)
[2016-05-04] MEDS: FUROSEMIDE 40 MG/4 ML VIAL IVP SCH ×2 (09:40→13:45)
[2016-05-04] MEDS: ASPIRIN ENTERIC COATED 81 MG TABLET.DR. PO SCH (09:41)
--- NOTE | 2016-05-04 10:41 | HP ---
ADMIT DATE: 05/02/2016 CHIEF COMPLAINT AND HISTORY OF PRESENT ILLNESS: This 75-year-old female patient of Dr. Jeronimo Elizondo was admitted through the Emergency Room with increasing shortness of breath, profound anemia with a hemoglobin of 6.7 and congestive heart failure and then short of breath for a while in a couple of 3 weeks ago and had an echocardiogram done, which showed severe left ventricular dysfunction with an ejection fraction of 25-30% and moderately severe to severe pulmonary hypertension. The patient was admitted to the ICU. PAST MEDICAL HISTORY: Remarkable for diabetes and hypertension. MEDICATIONS: At the time of admission include furosemide 3 times a week 40 mg, KCl 20 mEq 3 times a week, lisinopril 5 daily and metformin 500 b.i.d. ALLERGIES: INCLUDE PENICILLIN AND IBUPROFEN. SOCIAL HISTORY: She is ____ smoker recently, does not abuse alcohol or drugs, is raising 11-year-old grandchild. FAMILY HISTORY: Noncontributory. REVIEW OF SYSTEMS: Remarkable for pedal edema, orthopnea, increasing shortness of breath. She denies any definite evidence of GI blood loss. PHYSICAL EXAMINATION: GENERAL: She is a well-developed, well-nourished white female ____ short of breath at rest. VITAL SIGNS: Reveal blood pressure 90/60 range, she is afebrile. HEAD, EYES, EARS, NOSE AND THROAT: Unremarkable. NECK: Supple without adenopathy or thyromegaly. She has a very mild JVD. CHEST: Reveals bibasilar crackles. HEART: Regular rate and rhythm without S3, S4 or significant murmur. ABDOMEN: Soft, nontender without hepatosplenomegaly or mass. EXTREMITIES: Reveal 1+ pitting edema. NEUROLOGIC: She is intact. LABORATORY DATA AND IMAGING: Workup to date includes a chest x-ray that shows congestive heart failure. Bilateral lower extremity venous Doppler was negative for DVT. She has no ST elevation on her EKG, but has a troponin that was peaked at 4.8 and has already started to decrease at 4.2. Initial hemoglobin was 6.7. She has remarkably decreased red blood cell ____ at the time of admission was 23,898. IMPRESSION: Congestive heart failure, profound anemia, pulmonary hypertension, cardiomyopathy, diabetes, history of hypertension. PLAN: The patient has been admitted. Pulmonary, Cardiology and GI have been consulted. She has received 2 units of packed red blood cells with her hemoglobin increasing up to 9.1. Cardiology is planning on taking her for a heart cath, first part of next week if everything stabilizes and GI will need to do endoscopies also for what is almost certainly iron deficiency anemia. We will follow her renal function, diuresis will be undertaken and we will follow ____ with the same and also renal ____. KUMAR AGUDELO MD DR: JULIA/madison JOB#: [id number] / [id number]
[2016-05-04] MEDS: HEPARIN 25,000UTS/500ML PREMIX 500 ML IV PRN (10:51)
--- NOTE | 2016-05-04 11:33 | PDOC ---
GENERAL General: vss and afebrile. awake and alert and actually slept for first time in few days for one hour sitting in chair. still with significant orthopnea. bibasilar crackles and edema persist. O>I. on heparin drip. diuresis ordered. for heart cath tomorrow. Hb 8.6 with iron studies pending. K+3.8 and will follow with diuresis for chf. Problems: VITAL SIGNS Vital Signs: Vital Signs Date Time Temp Pulse Resp B/P Pulse Ox O2 Delivery O2 Flow Rate FiO2 05/04/16 11:02 89 23 93/50 99 Room Air 05/04/16 07:00 98.5 98.5 05/03/16 17:00 1.0 I & O I & O Intake and Output 05/04/16 07:00 Intake Total 645 ml Output Total 450 ml Balance 195 ml Intake Oral 645 ml Output Urine Total 450 ml # Voids 5 ALLERGIES Allergies: Allergies Coded Allergies Type Severity Reaction Last Updated Verified Penicillins Allergy Intermediate 05/02/16 Yes ibuprofen Allergy Intermediate 05/02/16 Yes MEDS Medications: Current Medications Medications (Trade) Dose Ordered Sig/Julio Start Time Stop Time Status Last Admin Dose Admin Albuterol/ Ipratropium (Duoneb) 3 ml RTQID 05/03/16 08:00 05/04/16 08:47 3 ML Aspirin (Children'S Aspirin) 324 mg 1X ONCE 05/03/16 00:00 05/03/16 00:01 DC 05/03/16 00:11 324 MG Aspirin (Ecotrin) 81 mg [id number] 05/04/16 08:00 05/04/16 09:41 81 MG Budesonide 0.5 mg 0.5 mg RTBID 05/03/16 08:00 05/04/16 08:47 0.5 MG Famotidine (Pepcid) 20 mg DAILY 05/03/16 09:00 05/03/16 11:41 DC 05/03/16 09:00 20 MG Furosemide (Lasix) 40 mg [id number] 05/04/16 09:00 05/04/16 09:40 40 MG Heparin Sodium (Porcine) 1,850 unit PRN Q6HRS PRN 05/03/16 11:15 05/03/16 18:47 1,850 UNIT Heparin Sodium/ Dextrose 500 ml @ 0 mls/hr CONT PRN 05/03/16 11:15 05/04/16 10:51 0 MLS/HR Morphine Sulfate 2 mg PRN Q2HR PRN 05/03/16 00:00 05/03/16 23:59 DC Ondansetron HCl (Zofran) 4 mg PRN Q8HRS PRN 05/03/16 00:00 05/03/16 23:59 DC Pantoprazole Sodium (Protonix Vial) 40 mg DAILYAC 05/04/16 07:30 05/04/16 09:40 40 MG LAB Lab: Laboratory Tests Test 05/03/16 18:10 05/04/16 00:15 05/04/16 06:20 05/04/16 06:25 White Blood Count 7.3x10^3/uL (4.0-11.0) 8.4x10^3/uL (4.0-11.0) Red Blood Count 4.12x10^6/uL (3.50-5.40) 3.96x10^6/uL (3.50-5.40) Hemoglobin 8.9g/dL (12.0-15.5) 8.6g/dL (12.0-15.5) Hematocrit 27.7% (36.0-47.0) 26.7% (36.0-47.0) Mean Corpuscular Volume 67fL (79-100) 67fL (79-100) Mean Corpuscular Hemoglobin 22pg (25-35) 22pg (25-35) Mean Corpuscular Hemoglobin Concent 32g/dL (31-37) 32g/dL (31-37) Red Cell Distribution Width 22.4% (11.5-14.5) 22.8% (11.5-14.5) Platelet Count 294x10^3/uL (140-400) 298x10^3/uL (140-400) Heparin Anti-Xa Act, Unfractionated 0.16IU/mL (0.30-0.70) 0.31IU/mL (0.30-0.70) 0.29IU/mL (0.30-0.70) Reticulocyte Count (auto) 2.5% (0.5-2.5) Neutrophils (%) (Auto) 71% (31-73) Lymphocytes (%) (Auto) 17% (24-48) Monocytes (%) (Auto) 11% (0-9) Eosinophils (%) (Auto) 1% (0-3) Basophils (%) (Auto) 1% (0-3) Neutrophils # (Auto) 5.9x10^3uL (1.8-7.7) Lymphocytes # (Auto) 1.4x10^3/uL (1.0-4.8) Monocytes # (Auto) 0.9x10^3/uL (0.0-1.1) Eosinophils # (Auto) 0.1x10^3/uL (0.0-0.7) Basophils # (Auto) 0.0x10^3/uL (0.0-0.2) Sodium Level 135mmol/L (136-145) Potassium Level 3.8mmol/L (3.5-5.1) Chloride Level 99mmol/L (98-107) Carbon Dioxide Level 24mmol/L (21-32) Anion Gap 12 (6-14) Blood Urea Nitrogen 22mg/dL (7-20) Creatinine 0.9mg/dL (0.6-1.0) Estimated GFR (Cockcroft-Gault) 61.4 Glucose Level 123mg/dL (70-99) Calcium Level 8.7mg/dL (8.5-10.1) KUMAR AGUDELO MD May 04, 2016 11:32
--- NOTE | 2016-05-04 12:03 | PDOC ---
CARDIOLOGY PROGRESS NOTE SUBJECTIVE: Feels better today. Denies chest pain. Dyspnea improved. OBJECTIVE: Vital SIgns: Vital Signs Date Time Temp Pulse Resp B/P Pulse Ox O2 Delivery O2 Flow Rate FiO2 05/04/16 11:02 89 23 93/50 99 Room Air 05/04/16 07:00 98.5 98.5 05/03/16 17:00 1.0 I & O Intake and Output 05/04/16 07:00 Intake Total 645 ml Output Total 450 ml Balance 195 ml Intake Oral 645 ml Output Urine Total 450 ml # Voids 5 Objective: Gen: a/o x 3. CVS: RRR. no m/r/g lungs few rales at the bases abd soft no edema CURRENT MEDICATIONS: Current Medications Medications (Trade) Dose Ordered Sig/Julio Start Time Stop Time Status Last Admin Dose Admin Albuterol/ Ipratropium (Duoneb) 3 ml RTQID 05/03/16 08:00 05/04/16 08:47 3 ML Aspirin (Children'S Aspirin) 324 mg 1X ONCE 05/03/16 00:00 05/03/16 00:01 DC 05/03/16 00:11 324 MG Aspirin (Ecotrin) 81 mg DAILYWBKFT 05/04/16 08:00 05/04/16 09:41 81 MG Budesonide 0.5 mg 0.5 mg RTBID 05/03/16 08:00 05/04/16 08:47 0.5 MG Famotidine (Pepcid) 20 mg DAILY 05/03/16 09:00 05/03/16 11:41 DC 05/03/16 09:00 20 MG Furosemide (Lasix) 40 mg [id number] 05/04/16 09:00 05/04/16 09:40 40 MG Heparin Sodium (Porcine) 1,850 unit PRN Q6HRS PRN 05/03/16 11:15 05/03/16 18:47 1,850 UNIT Heparin Sodium/ Dextrose 500 ml @ 0 mls/hr CONT PRN 05/03/16 11:15 05/04/16 10:51 0 MLS/HR Morphine Sulfate 2 mg PRN Q2HR PRN 05/03/16 00:00 05/03/16 23:59 DC Ondansetron HCl (Zofran) 4 mg PRN Q8HRS PRN 05/03/16 00:00 05/03/16 23:59 DC Pantoprazole Sodium (Protonix Vial) 40 mg DAILYAC 05/04/16 07:30 05/04/16 09:40 40 MG DIAGNOSTIC TESTING: Hgb 8.6 ASSESSMENT: 1. NSTEMI 2. Pulm HTN 3. Cardiomyopathy Problems: PLAN: 1. Continue diuresis with lasix. 2. low BP, unable to tolerate lisinopril or b-rusty 3. Continue hep gtt 4. LHC/RHC tomorrow. 5. NPO at midnight. Will follow. BEAU MARY MD May 04, 2016 12:03
--- NOTE | 2016-05-04 13:52 | PDOC ---
G I PROGRESS NOTE Reason for Follow-up Anemia/nausea Subjective Without new complaints Physical Exam Lungs clear CV S1 S2 ABD +BS, soft, nontender Review of Relevant I have reviewed the following items manisha (where applicable) has been applied. Labs Laboratory Tests Test 05/02/16 18:00 05/02/16 22:45 05/03/16 01:52 05/03/16 07:15 Iron Level 14ug/dL (50-170) Total Iron Binding Capacity 452ug/dL (250-450) Iron Saturation 3% (15-34) White Blood Count 6.4x10^3/uL (4.0-11.0) Red Blood Count 3.49x10^6/uL (3.50-5.40) Hemoglobin 6.7g/dL (12.0-15.5) Hematocrit 22.4% (36.0-47.0) Mean Corpuscular Volume 64fL (79-100) Mean Corpuscular Hemoglobin 19pg (25-35) Mean Corpuscular Hemoglobin Concent 30g/dL (31-37) Red Cell Distribution Width 18.7% (11.5-14.5) Platelet Count 321x10^3/uL (140-400) Neutrophils (%) (Auto) 67% (31-73) Lymphocytes (%) (Auto) 21% (24-48) Monocytes (%) (Auto) 11% (0-9) Eosinophils (%) (Auto) 1% (0-3) Basophils (%) (Auto) 0% (0-3) Neutrophils # (Auto) 4.3x10^3uL (1.8-7.7) Lymphocytes # (Auto) 1.3x10^3/uL (1.0-4.8) Monocytes # (Auto) 0.7x10^3/uL (0.0-1.1) Eosinophils # (Auto) 0.0x10^3/uL (0.0-0.7) Basophils # (Auto) 0.0x10^3/uL (0.0-0.2) Platelet Estimate Adequate (ADEQUATE) Polychromasia Slight Hypochromasia Marked Anisocytosis Slight Microcytosis Marked Schistocytes Occ Prothrombin Time 14.6SEC (11.7-14.0) Prothromb Time International Ratio 1.2 (0.8-1.1) Activated Partial Thromboplast Time 30SEC (24-38) Sodium Level 134mmol/L (136-145) Potassium Level 3.5mmol/L (3.5-5.1) Chloride Level 97mmol/L (98-107) Carbon Dioxide Level 23mmol/L (21-32) Anion Gap 14 (6-14) Blood Urea Nitrogen 27mg/dL (7-20) Creatinine 1.1mg/dL (0.6-1.0) Estimated GFR (Cockcroft-Gault) 48.7 Glucose Level 144mg/dL (70-99) Calcium Level 8.9mg/dL (8.5-10.1) Total Bilirubin 0.5mg/dL (0.2-1.0) Direct Bilirubin 0.2mg/dL (0.0-0.2) Aspartate Amino Transf (AST/SGOT) 32U/L (15-37) Alanine Aminotransferase (ALT/SGPT) 15U/L (14-59) Alkaline Phosphatase 79U/L (46-116) Troponin I Quantitative 3.986ng/mL (0.000-0.055) 4.842ng/mL (0.000-0.055) TU-Wkd-M-Type Natriuretic Peptide 63184zw/mL (0-124) Total Protein 7.2g/dL (6.4-8.2) Albumin 3.1g/dL (3.4-5.0) Lipase 164U/L (73-393) Nasal Screen MRSA (PCR) Negative (Negative) Test 05/03/16 11:00 05/03/16 18:10 05/04/16 00:15 05/04/16 06:20 White Blood Count 7.6x10^3/uL (4.0-11.0) 7.3x10^3/uL (4.0-11.0) Red Blood Count 4.25x10^6/uL (3.50-5.40) 4.12x10^6/uL (3.50-5.40) Hemoglobin 9.1g/dL (12.0-15.5) 8.9g/dL (12.0-15.5) Hematocrit 29.1% (36.0-47.0) 27.7% (36.0-47.0) Mean Corpuscular Volume 68fL (79-100) 67fL (79-100) Mean Corpuscular Hemoglobin 21pg (25-35) 22pg (25-35) Mean Corpuscular Hemoglobin Concent 31g/dL (31-37) 32g/dL (31-37) Red Cell Distribution Width 23.0% (11.5-14.5) 22.4% (11.5-14.5) Platelet Count 314x10^3/uL (140-400) 294x10^3/uL (140-400) Neutrophils (%) (Auto) 80% (31-73) Lymphocytes (%) (Auto) 9% (24-48) Monocytes (%) (Auto) 9% (0-9) Eosinophils (%) (Auto) 1% (0-3) Basophils (%) (Auto) 1% (0-3) Neutrophils # (Auto) 6.1x10^3uL (1.8-7.7) Lymphocytes # (Auto) 0.7x10^3/uL (1.0-4.8) Monocytes # (Auto) 0.7x10^3/uL (0.0-1.1) Eosinophils # (Auto) 0.0x10^3/uL (0.0-0.7) Basophils # (Auto) 0.0x10^3/uL (0.0-0.2) Troponin I Quantitative 4.278ng/mL (0.000-0.055) Heparin Anti-Xa Act, Unfractionated 0.16IU/mL (0.30-0.70) 0.31IU/mL (0.30-0.70) Reticulocyte Count (auto) 2.5% (0.5-2.5) Test 05/04/16 06:25 White Blood Count 8.4x10^3/uL (4.0-11.0) Red Blood Count 3.96x10^6/uL (3.50-5.40) Hemoglobin 8.6g/dL (12.0-15.5) Hematocrit 26.7% (36.0-47.0) Mean Corpuscular Volume 67fL (79-100) Mean Corpuscular Hemoglobin 22pg (25-35) Mean Corpuscular Hemoglobin Concent 32g/dL (31-37) Red Cell Distribution Width 22.8% (11.5-14.5) Platelet Count 298x10^3/uL (140-400) Neutrophils (%) (Auto) 71% (31-73) Lymphocytes (%) (Auto) 17% (24-48) Monocytes (%) (Auto) 11% (0-9) Eosinophils (%) (Auto) 1% (0-3) Basophils (%) (Auto) 1% (0-3) Neutrophils # (Auto) 5.9x10^3uL (1.8-7.7) Lymphocytes # (Auto) 1.4x10^3/uL (1.0-4.8) Monocytes # (Auto) 0.9x10^3/uL (0.0-1.1) Eosinophils # (Auto) 0.1x10^3/uL (0.0-0.7) Basophils # (Auto) 0.0x10^3/uL (0.0-0.2) Heparin Anti-Xa Act, Unfractionated 0.29IU/mL (0.30-0.70) Sodium Level 135mmol/L (136-145) Potassium Level 3.8mmol/L (3.5-5.1) Chloride Level 99mmol/L (98-107) Carbon Dioxide Level 24mmol/L (21-32) Anion Gap 12 (6-14) Blood Urea Nitrogen 22mg/dL (7-20) Creatinine 0.9mg/dL (0.6-1.0) Estimated GFR (Cockcroft-Gault) 61.4 Glucose Level 123mg/dL (70-99) Calcium Level 8.7mg/dL (8.5-10.1) Laboratory Tests Test 05/03/16 18:10 05/04/16 00:15 05/04/16 06:20 05/04/16 06:25 White Blood Count 7.3x10^3/uL (4.0-11.0) 8.4x10^3/uL (4.0-11.0) Red Blood Count 4.12x10^6/uL (3.50-5.40) 3.96x10^6/uL (3.50-5.40) Hemoglobin 8.9g/dL (12.0-15.5) 8.6g/dL (12.0-15.5) Hematocrit 27.7% (36.0-47.0) 26.7% (36.0-47.0) Mean Corpuscular Volume 67fL (79-100) 67fL (79-100) Mean Corpuscular Hemoglobin 22pg (25-35) 22pg (25-35) Mean Corpuscular Hemoglobin Concent 32g/dL (31-37) 32g/dL (31-37) Red Cell Distribution Width 22.4% (11.5-14.5) 22.8% (11.5-14.5) Platelet Count 294x10^3/uL (140-400) 298x10^3/uL (140-400) Heparin Anti-Xa Act, Unfractionated 0.16IU/mL (0.30-0.70) 0.31IU/mL (0.30-0.70) 0.29IU/mL (0.30-0.70) Reticulocyte Count (auto) 2.5% (0.5-2.5) Neutrophils (%) (Auto) 71% (31-73) Lymphocytes (%) (Auto) 17% (24-48) Monocytes (%) (Auto) 11% (0-9) Eosinophils (%) (Auto) 1% (0-3) Basophils (%) (Auto) 1% (0-3) Neutrophils # (Auto) 5.9x10^3uL (1.8-7.7) Lymphocytes # (Auto) 1.4x10^3/uL (1.0-4.8) Monocytes # (Auto) 0.9x10^3/uL (0.0-1.1) Eosinophils # (Auto) 0.1x10^3/uL (0.0-0.7) Basophils # (Auto) 0.0x10^3/uL (0.0-0.2) Sodium Level 135mmol/L (136-145) Potassium Level 3.8mmol/L (3.5-5.1) Chloride Level 99mmol/L (98-107) Carbon Dioxide Level 24mmol/L (21-32) Anion Gap 12 (6-14) Blood Urea Nitrogen 22mg/dL (7-20) Creatinine 0.9mg/dL (0.6-1.0) Estimated GFR (Cockcroft-Gault) 61.4 Glucose Level 123mg/dL (70-99) Calcium Level 8.7mg/dL (8.5-10.1) Medications Current Medications Albuterol/ Ipratropium (Duoneb) 3 ml 1X ONCE NEB Last administered on 22:50; Start 05/02/16 at 22:45; Stop 05/02/16 at 23:51; Status DC Aspirin (Children'S Aspirin) 324 mg 1X ONCE PO Last administered on 05/03/16 00:11; Start 05/03/16 at 00:00; Stop 05/03/16 at 00:01; Status DC Furosemide (Lasix) 40 mg 1X ONCE IVP Last administered on 05/03/16 00:11; Start 05/03/16 at 00:00; Stop 05/03/16 at 00:01; Status DC Ondansetron HCl (Zofran) 4 mg PRN Q8HRS PRN IV NAUSEA/VOMITING; Start 05/03/16 at 00:00; Stop 05/03/16 at 23:59; Status DC Morphine Sulfate 2 mg PRN Q2HR PRN IV SEVERE PAIN; Start 05/03/16 at 00:00; Stop 05/03/16 at 23:59; Status DC Famotidine (Pepcid) 20 mg DAILY IVP Last administered on 05/03/16 09:00; Start 05/03/16 at 09:00; Stop 05/03/16 at 11:41; Status DC Furosemide (Lasix) 20 mg 1X ONCE IVP Last administered on 05/03/16 08:17; Start 05/03/16 at 07:45; Stop 05/03/16 at 07:46; Status DC Albuterol/ Ipratropium (Duoneb) 3 ml RTQID NEB Last administered on 05/04/16 08:47; Start 05/03/16 at 08:00 Budesonide 0.5 mg 0.5 mg RTBID NEB Last administered on 05/04/16 08:47; Start 05/03/16 at 08:00 Heparin Sodium/ Dextrose 500 ml @ 0 mls/hr CONT PRN IV SEE I/O RECORD Last administered on 05/04/16 10:51; Start 05/03/16 at 11:15 Heparin Sodium (Porcine) 1,850 unit PRN Q6HRS PRN IV FOR UFH LEVEL LESS THAN 0.2 Last administered on 05/03/16 18:47; Start 05/03/16 at 11:15 Aspirin (Ecotrin) 81 mg DAILYWBKFT PO Last administered on 05/04/16 09:41; Start 05/04/16 at 08:00 Pantoprazole Sodium (Protonix Vial) 40 mg DAILYAC IVP Last administered on 05/04 09:40; Start 05/04/16 at 07:30 Furosemide (Lasix) 40 mg BID92 IVP Last administered on 05/04/16 13:45; Start 05/04/16 at 09:00 Active Scripts Active Reported Metformin Hcl 500 Mg Tablet 1 Tab PO DAILY Lisinopril 5 Mg Tablet 1 Tab PO DAILY Klor-Con M20 (Potassium Chloride) 20 Meq Tab.er.prt 1 Tab PO 3X/WEEK Furosemide 40 Mg Tablet 1 Tab PO 3X/WEEK Vitals/I & O Vital Sign - Last 24 Hours 05/03/16 05/03/16 05/03/16 05/03/16 15:39 16:00 16:00 17:00 Pulse 90 91 Resp 22 22 B/P 94/62 92/60 Pulse Ox 96 97 97 O2 Delivery Room Air Nasal Cannula Nasal Cannula Nasal Cannula O2 Flow Rate 2.0 1.0 1.0 05/03/16 05/03/16 05/03/16 05/03/16 18:00 19:00 19:19 20:00 Temp 98.0 98.0 Pulse 97 100 100 Resp 22 16 22 B/P 100/57 100/57 100/53 Pulse Ox 95 95 95 95 O2 Delivery Room Air Room Air Room Air Room Air 05/03/16 05/03/16 05/03/16 05/03/16 20:07 21:00 22:00 23:00 Pulse 102 104 98 Resp 23 24 20 B/P 103/56 100/56 94/58 Pulse Ox 95 95 95 O2 Delivery Room Air Room Air Room Air Room Air 05/04/16 05/04/16 05/04/16 05/04/16 00:00 00:00 01:00 02:00 Temp 97.8 97.8 Pulse 99 98 98 Resp 20 20 20 B/P 79/48 103/60 102/60 Pulse Ox 95 95 93 O2 Delivery Room Air Room Air Room Air Room Air 05/04/16 05/04/16 05/04/16 05/04/16 03:00 04:00 04:10 05:00 Temp 98.0 98.0 Pulse 102 88 96 Resp 20 20 20 B/P 96/42 96/54 98/52 Pulse Ox 93 93 93 O2 Delivery Room Air Room Air Room Air Room Air 05/04/16 05/04/16 05/04/16 05/04/16 06:00 07:00 08:00 08:00 Temp 98.5 98.5 Pulse 86 94 92 Resp 20 20 20 B/P 93/56 107/50 91/56 Pulse Ox 93 97 O2 Delivery Room Air Room Air Room Air Room Air 05/04/16 05/04/16 05/04/16 05/04/16 08:49 09:00 10:00 11:02 Pulse 89 89 Resp 23 23 B/P 96/61 96/48 93/50 Pulse Ox 97 99 O2 Delivery Room Air Room Air Room Air 05/04/16 05/04/16 05/04/16 12:00 12:00 13:00 Temp 98.5 98.5 Pulse 95 90 Resp 23 23 B/P 93/62 83/45 Pulse Ox 99 O2 Delivery Room Air Room Air Room Air Intake and Output 05/03/16 05/03/16 05/04/16 15:00 23:00 07:00 Intake Total 425 ml 220 ml Output Total 350 ml 100 ml Balance 425 ml -130 ml -100 ml Problem List Problems Medical Problems: (1) Anemia Status: Acute (2) CHF exacerbation Status: Acute (3) Hypoxia Status: Acute Assessment Iron def anemia- with UT, await heart cath in am, o/p[ egd/colonoscopy advised, patient considering JENNIFER PACHECO MD May 04, 2016 13:52
[2016-05-04 13:59] LABS: HEMATOCRIT 26.8 % (36.0-47.0); HEMOGLOBIN 8.5 g/dL (12.0-15.5); RED BLOOD COUNT 3.85 x10^6/uL (3.50-5.40); RED CELL DISTRIBUTION WIDTH 22.9 % (11.5-14.5); WHITE BLOOD COUNT 6.2 x10^3/uL (4.0-11.0)
[2016-05-04 18:02] LABS: HEMOGLOBIN 8.9 g/dL (12.0-15.5); RED BLOOD COUNT 4.13 x10^6/uL (3.50-5.40); RED CELL DISTRIBUTION WIDTH 23.6 % (11.5-14.5); WHITE BLOOD COUNT 7.5 x10^3/uL (4.0-11.0)
[2016-05-05] VITALS (8 sets, daily range): BP systolic 95–109; BP diastolic 46–63
[2016-05-05 03:53] LABS: CALCIUM 8.6 mg/dL (8.5-10.1); GFR 54.3; POTASSIUM 3.5 mmol/L (3.5-5.1)
[2016-05-05] MEDS: HEPARIN 25,000UTS/500ML PREMIX 500 ML IV PRN (04:36)
[2016-05-05] MEDS: IPRATRPIUM/ALBUTEROL 0.5/2.5MG 3 ML NEBU. NEB SCH ×4 (06:12→19:24)
[2016-05-05] MEDS: BUDESONIDE 0.5 MG/2 ML NEBU NEB SCH ×2 (06:12→19:24)
[2016-05-05] MEDS: PANTOPRAZOLE IV PUSH 40 MG VIAL. IVP SCH (07:30)
[2016-05-05] MEDS: ASPIRIN ENTERIC COATED 81 MG TABLET.DR. PO SCH (07:37)
--- NOTE | 2016-05-05 08:04 | PDOC ---
Provider Note Provider Note hb stable, still orthopneic re chf- has consented to egd/colon after cath as she will need asa and others likely, may even need cabg- DOYLE VILLA MD May 05, 2016 08:04
[2016-05-05] MEDS: PANTOPRAZOLE 40 MG TABLET. PO SCH (08:30)
[2016-05-05] MEDS: FUROSEMIDE 40 MG/4 ML VIAL IVP SCH ×2 (09:00→14:00)
--- NOTE | 2016-05-05 10:02 | CONS ---
DATE OF CONSULTATION: 05/03/2016 PULMONARY CRITICAL CARE CONSULTATION NOTE LOCATION: The patient is in ICU. CHIEF COMPLAINT: I was asked to see this 75-year-old lady for acute respiratory failure. HISTORY OF PRESENT ILLNESS: She has history of 10-mruy-cicf smoking, continues to smoke about 1 pack per day. She has had shortness of breath and lower extremity edema for the past 3 weeks. She has had chest pain at times. Her lower extremity edema improved with taking Lasix, which was prescribed by her primary physician. Her shortness of breath did increase as she presented to the Emergency Room. She was admitted for further evaluation. She does have cough with eemyv-[id number]-cvgnll sputum production. She has had runny nose. She denies fever or chills. She has had occasional wheezing. PAST MEDICAL HISTORY: COPD, diabetes mellitus. PAST SURGICAL HISTORY: Appendectomy, cholecystectomy. ALLERGIES: PENICILLIN, IBUPROFEN. MEDICATIONS: Currently she is on aspirin. SOCIAL HISTORY: History of 34-botu-vqzv smoking, continues to smoke 1 pack per day. FAMILY HISTORY: Positive for asthma. REVIEW OF SYSTEMS: As mentioned above. The patient's hemoglobin was 6.7. The patient was given 2 units of blood. Other systems are otherwise negative. PHYSICAL EXAMINATION: GENERAL: This is a well-developed lady. VITAL SIGNS: Her O2 saturation on 2 liters of oxygen is 96%, respiratory rate 22, heart rate 83, blood pressure 94/75, temperature 97.7. HEENT: Normocephalic, atraumatic. Pupils are equal, round, and reactive to light. Throat is clear. Nose is clear. NECK: Positive JVD. No lymphadenopathy or thyromegaly. CARDIOVASCULAR: Regular rate and rhythm. PMI is not displaced. Distant heart sounds. CHEST: Inspection is normal. LUNGS: There are bibasilar crackles, a few end expiratory wheezing, dullness at the bases. ABDOMEN: Soft. Bowel sounds are good. There is no mass. EXTREMITIES: There is 2-3 lower extremity edema. LYMPHATICS: There is no lymphadenopathy. NEUROLOGIC: Alert and oriented x 3. SKIN: Chronic changes. LABORATORY DATA: I reviewed the following lab data: Chest x-ray shows increased vascular marking. WBC 6.4, hemoglobin 6.7, platelets 321. Sodium 134, potassium 3.5, chloride 97, CO2 is 23, BUN 27, creatinine 1.1, glucose 144, total bilirubin 0.5, AST 32, ALT 15, alkaline phosphatase 79. BNP 23,898, troponin 3.98. IMPRESSION: 1. Acute hypoxemic respiratory failure, multifactorial in etiology. 2. Abnormal chest x-ray. 3. Acute congestive heart failure, systolic versus diastolic. 4. non-ST elevation myocardial infarction. 5. Acute kidney injury. 6. Anemia? etiology. 7. Chronic obstructive pulmonary disease with mild acute exacerbation. 8. Tobacco habituation. PLAN AND RECOMMENDATION: 1. I had a long discussion with her regarding smoking cessation. I have advised her to stop smoking forever. 2. Start bronchodilator. 3. Start Pulmicort. She may require systemic steroid. 4. Cardiology is consulted. She would require an echocardiogram as soon as possible and evaluation by ios architect as soon as possible. 5. I do recommend GI consultation. Meanwhile, I do start on Pepcid IV. 6. I do recommend lower extremity venous Doppler. 7. Monitor respiratory status very closely. The findings and recommendations were discussed with the patient and RN. I have answered all of the patient's questions. She understood and agreed to proceed with the plan. Thank you very much for allowing me to participate in care of this very nice lady. RICHIE COLVIN M.D. : Eula JOB#: [id number] / [id number] TOMI
[2016-05-05 11:07] LABS: FOLATE > 20.00 ng/ml (3.2-20.0); VITAMIN-B12 262 pg/mL (247-911)
[2016-05-05] MEDS ORDERED: LIDOCAINE 2% 20 ML VIAL. ONE (11:34)
[2016-05-05] MEDS ORDERED: IOHEXOL 300 MG/ML 100ML VIAL. ONE ×2 (11:34→12:34)
--- NOTE | 2016-05-05 11:47 | PDOC ---
Subjective: Subjective: NPO, awaiting heart cath. Some SOA. No GI complaints except no BM in a few days. Objective: Objective: Reviewed other notes. Vital Signs: Vital Signs Date Time Temp Pulse Resp B/P Pulse Ox O2 Delivery O2 Flow Rate FiO2 05/05/16 11:33 Room Air 05/05/16 11:00 98.1 96 18 96/46 98 98.1 05/04/16 20:00 2.0 Labs: Laboratory Tests Test 05/04/16 13:50 05/04/16 17:55 05/04/16 21:02 05/05/16 03:19 White Blood Count 6.2x10^3/uL 7.5x10^3/uL Red Blood Count 3.85x10^6/uL 4.13x10^6/uL Hemoglobin 8.5g/dL 8.9g/dL Hematocrit 26.8% 28.0% Mean Corpuscular Volume 70fL 68fL Mean Corpuscular Hemoglobin 22pg 22pg Mean Corpuscular Hemoglobin Concent 32g/dL 32g/dL Red Cell Distribution Width 22.9% 23.6% Platelet Count 273x10^3/uL 309x10^3/uL Heparin Anti-Xa Act, Unfractionated 0.29IU/mL 0.38IU/mL Sodium Level 137mmol/L Potassium Level 3.5mmol/L Chloride Level 100mmol/L Carbon Dioxide Level 26mmol/L Anion Gap 11 Blood Urea Nitrogen 23mg/dL Creatinine 1.0mg/dL Estimated GFR (Cockcroft-Gault) 54.3 Glucose Level 115mg/dL Calcium Level 8.6mg/dL Test 05/05/16 08:50 Heparin Anti-Xa Act, Unfractionated 0.25IU/mL PE: GEN: NAD, was sleeping LUNGS: clear anteriorly HEART: S1S2 ABD: S/ND/NT NEURO/PSYCH: A & O 3 A/P: ANA -Hgb improved/stable s/p transfusion 2 units pRBCs 05/03 -no previous EGD or colonoscopy, no obvious GI bleeding -on PPI, B12 ME, CHF, SOA -- Heart cath today. Pt wants to proceed w/ endoscopy eventually for further eval. Will discuss timing w/ Dr. Hodges. SARAHI GALVAN May 05, 2016 11:46
[2016-05-05] MEDS ORDERED: FENTANYL PF 100 MCG/2 ML VIAL. ONE (12:00)
[2016-05-05] MEDS ORDERED: MIDAZOLAM HCL 2 MG/2 ML VIAL. ONE (12:00)
--- NOTE | 2016-05-05 12:13 | PDOC ---
PULMONARY PROGRESS NOTES Subjective PT ANXIOUS UNABLE TO LAY FLAT Vitals Vital Signs Date Time Temp Pulse Resp B/P Pulse Ox O2 Delivery O2 Flow Rate FiO2 05/05/16 11:33 Room Air 05/05/16 11:00 98.1 96 18 96/46 98 98.1 05/04/16 20:00 2.0 ROS: No Nausea, No Chest Pain General: Alert HEENT: Other (nc at perrl, throat nose clear) Lungs: Crackles Cardiovascular: S1, S2 Abdomen: Soft, Non-tender, Other (no mass) Neuro Exam: Alert, Oriented Extremities: Other (edema) Skin: Warm Labs Laboratory Tests Test 05/03/16 18:10 05/04/16 00:15 05/04/16 06:20 05/04/16 06:25 White Blood Count 7.3x10^3/uL (4.0-11.0) 8.4x10^3/uL (4.0-11.0) Red Blood Count 4.12x10^6/uL (3.50-5.40) 3.96x10^6/uL (3.50-5.40) Hemoglobin 8.9g/dL (12.0-15.5) 8.6g/dL (12.0-15.5) Hematocrit 27.7% (36.0-47.0) 26.7% (36.0-47.0) Mean Corpuscular Volume 67fL (79-100) 67fL (79-100) Mean Corpuscular Hemoglobin 22pg (25-35) 22pg (25-35) Mean Corpuscular Hemoglobin Concent 32g/dL (31-37) 32g/dL (31-37) Red Cell Distribution Width 22.4% (11.5-14.5) 22.8% (11.5-14.5) Platelet Count 294x10^3/uL (140-400) 298x10^3/uL (140-400) Heparin Anti-Xa Act, Unfractionated 0.16IU/mL (0.30-0.70) 0.31IU/mL (0.30-0.70) 0.29IU/mL (0.30-0.70) Reticulocyte Count (auto) 2.5% (0.5-2.5) Neutrophils (%) (Auto) 71% (31-73) Lymphocytes (%) (Auto) 17% (24-48) Monocytes (%) (Auto) 11% (0-9) Eosinophils (%) (Auto) 1% (0-3) Basophils (%) (Auto) 1% (0-3) Neutrophils # (Auto) 5.9x10^3uL (1.8-7.7) Lymphocytes # (Auto) 1.4x10^3/uL (1.0-4.8) Monocytes # (Auto) 0.9x10^3/uL (0.0-1.1) Eosinophils # (Auto) 0.1x10^3/uL (0.0-0.7) Basophils # (Auto) 0.0x10^3/uL (0.0-0.2) Sodium Level 135mmol/L (136-145) Potassium Level 3.8mmol/L (3.5-5.1) Chloride Level 99mmol/L (98-107) Carbon Dioxide Level 24mmol/L (21-32) Anion Gap 12 (6-14) Blood Urea Nitrogen 22mg/dL (7-20) Creatinine 0.9mg/dL (0.6-1.0) Estimated GFR (Cockcroft-Gault) 61.4 Glucose Level 123mg/dL (70-99) Calcium Level 8.7mg/dL (8.5-10.1) Test 05/04/16 13:50 05/04/16 17:55 05/04/16 21:02 05/05/16 03:19 White Blood Count 6.2x10^3/uL (4.0-11.0) 7.5x10^3/uL (4.0-11.0) Red Blood Count 3.85x10^6/uL (3.50-5.40) 4.13x10^6/uL (3.50-5.40) Hemoglobin 8.5g/dL (12.0-15.5) 8.9g/dL (12.0-15.5) Hematocrit 26.8% (36.0-47.0) 28.0% (36.0-47.0) Mean Corpuscular Volume 70fL (79-100) 68fL (79-100) Mean Corpuscular Hemoglobin 22pg (25-35) 22pg (25-35) Mean Corpuscular Hemoglobin Concent 32g/dL (31-37) 32g/dL (31-37) Red Cell Distribution Width 22.9% (11.5-14.5) 23.6% (11.5-14.5) Platelet Count 273x10^3/uL (140-400) 309x10^3/uL (140-400) Heparin Anti-Xa Act, Unfractionated 0.29IU/mL (0.30-0.70) 0.38IU/mL (0.30-0.70) Sodium Level 137mmol/L (136-145) Potassium Level 3.5mmol/L (3.5-5.1) Chloride Level 100mmol/L (98-107) Carbon Dioxide Level 26mmol/L (21-32) Anion Gap 11 (6-14) Blood Urea Nitrogen 23mg/dL (7-20) Creatinine 1.0mg/dL (0.6-1.0) Estimated GFR (Cockcroft-Gault) 54.3 Glucose Level 115mg/dL (70-99) Calcium Level 8.6mg/dL (8.5-10.1) Test 05/05/16 08:50 Heparin Anti-Xa Act, Unfractionated 0.25IU/mL (0.30-0.70) Laboratory Tests Test 05/04/16 13:50 05/04/16 17:55 05/04/16 21:02 05/05/16 03:19 White Blood Count 6.2x10^3/uL (4.0-11.0) 7.5x10^3/uL (4.0-11.0) Red Blood Count 3.85x10^6/uL (3.50-5.40) 4.13x10^6/uL (3.50-5.40) Hemoglobin 8.5g/dL (12.0-15.5) 8.9g/dL (12.0-15.5) Hematocrit 26.8% (36.0-47.0) 28.0% (36.0-47.0) Mean Corpuscular Volume 70fL (79-100) 68fL (79-100) Mean Corpuscular Hemoglobin 22pg (25-35) 22pg (25-35) Mean Corpuscular Hemoglobin Concent 32g/dL (31-37) 32g/dL (31-37) Red Cell Distribution Width 22.9% (11.5-14.5) 23.6% (11.5-14.5) Platelet Count 273x10^3/uL (140-400) 309x10^3/uL (140-400) Heparin Anti-Xa Act, Unfractionated 0.29IU/mL (0.30-0.70) 0.38IU/mL (0.30-0.70) Sodium Level 137mmol/L (136-145) Potassium Level 3.5mmol/L (3.5-5.1) Chloride Level 100mmol/L (98-107) Carbon Dioxide Level 26mmol/L (21-32) Anion Gap 11 (6-14) Blood Urea Nitrogen 23mg/dL (7-20) Creatinine 1.0mg/dL (0.6-1.0) Estimated GFR (Cockcroft-Gault) 54.3 Glucose Level 115mg/dL (70-99) Calcium Level 8.6mg/dL (8.5-10.1) Test 05/05/16 08:50 Heparin Anti-Xa Act, Unfractionated 0.25IU/mL (0.30-0.70) Medications Active Scripts Medications Dose Route/Sig Days Date Category Metformin Hcl 500 Mg Tablet 1 Tab PO DAILY 05/03/16 Reported Lisinopril 5 Mg Tablet 1 Tab PO DAILY 05/03/16 Reported Klor-Con M20 (Potassium Chloride) 20 Meq Tab.er.prt 1 Tab PO 3X/WEEK 05/03/16 Reported Furosemide 40 Mg Tablet 1 Tab PO 3X/WEEK 05/03/16 Reported Comments cxr reviewed, Heart is borderline enlarged. Pulmonary vasculature and interstitial lung markings are increased. Costophrenic angles are minimally blunted. Presumed apical scarring bilaterally is relatively symmetric. Leads overlie the patient. Impression . IMPRESSION: 1. Acute hypoxemic respiratory failure, multifactorial in etiology. 2. Abnormal chest x-ray. 3. Acute congestive heart failure, systolic versus diastolic. 4. non-ST elevation myocardial infarction. 5. Acute kidney injury. 6. Anemia? etiology. 7. Chronic obstructive pulmonary disease with mild acute exacerbation. 8. Tobacco habituation. Plan . S/P CATH RESULTS PENDING 1. D/C SMOKING 2. Start bronchodilator. 3. Start Pulmicort. She may require systemic steroid. 4. FOLLOW CARD INPIT . ELVIA WILLIS MD May 05, 2016 12:13
[2016-05-05] MEDS ORDERED: BIVALIRUDIN 250 MG VIAL IV ONE ×2 (12:25→12:45)
[2016-05-05] MEDS ORDERED: IOHEXOL 300 MG/ML 100ML VIAL. IART ONE (12:45)
[2016-05-05] MEDS ORDERED: FENTANYL PF 100 MCG/2 ML VIAL. IV ONE (12:45)
[2016-05-05] MEDS ORDERED: MIDAZOLAM HCL 2 MG/2 ML VIAL. IV ONE (12:45)
[2016-05-05] MEDS ORDERED: LIDOCAINE 2% 20 ML VIAL. IJ ONE (12:45)
[2016-05-05] MEDS ORDERED: ANTI-COAG MONITOR BY PHARMACY. MC PRN (13:00)
[2016-05-05] MEDS ORDERED: TICAGRELOR 90 MG TABLET. PO ONE (13:00)
[2016-05-05] MEDS ORDERED: TICAGRELOR 90 MG TABLET. ONE (13:02)
[2016-05-05] MEDS ORDERED: FUROSEMIDE 100 MG/10 ML VIAL ONE (13:02)
[2016-05-05] MEDS ORDERED: FUROSEMIDE 40 MG/4 ML VIAL IVP ONE (13:15)
--- NOTE | 2016-05-05 16:49 | CARD ---
APPROVED REPORT Procedure(s) performed: [facility] Coronary angiography PTCA + Stent of the proximal LAD. HISTORY The patient is a 75 year-old female with a history of : previous CHF, chronic lung disease. INDICATION The indication(s) include : non-STEMI , dyspnea. PROCEDURE NARRATIVE After appropriate informed consent and discussion of the risks and benefits of the procedure the jessi ent was brought to the catheterization laboratory. A 6 and 8 Haitian sheath were placed in the right c ommon femoral artery and vein respectively via the Seldinger technique under 2% lidocaine local anest hesia with a J-tipped guidewire. Next, a 7.5 Haitian PA catheter was advanced through the venous syste m into wedge position. Wedge pressures and saturations were obtained. Next, diagnostic angiography wa s performed using right and left Brandee catheters. Findings: AO: 98/52 RHC: RA 15 RV: 65/40 PA: 63/33 PCWP: 22 PA sat: 52% FA sat: 97% Coleen CO: 3.3 L/min CORONARY ANGIOGRAPHY: LM: Large caliber vessel with normal angiographic appearance LAD: Large caliber vessel that wraps around the apex with a proximal 95% stenosis. Cx: Moderate caliber vessel with mild luminal irregularities. 2 obtuse marginal branches are small to moderate in nature with mild irregularities. RCA: Large caliber dominant vessel with mild diffuse irregularities of up to 30%. INTERVENTIONAL TECHNIQUE: PCI OF THE LAD Bivalirudin was administered for anticoagulation. Through a 6 Haitian EBU 4.0 guide catheter a 0.014 i nch per water wire was advanced to the distal LAD. The proximal LAD lesion was then angioplastied wit h a 3.0 x 15 mm balloon and the lesion was then stented with a 3.5 x 23 mm vision bare-metal stent. P ost PCI angiography revealed excellent stent expansion and OMI-3 flow in the vessel. There was spasm noted proximal to the stent edge near the ostial and proximal LAD but there was no evidence of disse ction and excellent brisk flow was seen. Post-PCI, the right groin sheath was removed and an Angiosea l device was placed. The right venous sheath was removed and hemostasis achieved with manual compress ion. Conclusion 1. Elevated biventricular filling pressures. 2. Moderate pulmonary HTN. mPA 45 mm Hg. 3. Low cardiac output. 4. One vessel CAD 5. Successful PCI of the proximal LAD with implantation of a Bare Metal Stent. Recommendations Aggressive Medical Therapy ASA 81mg daily Plavix 75mg daily x 6 weeks PPI Diuresis. Initiation of HF regimen as BP allows.
[2016-05-05] MEDS ORDERED: LORAZEPAM 2 MG/ML VIAL IV ONE (17:00)
[2016-05-05] MEDS: CYANOCOBALAMIN (VITAMIN B-12) 1,000 MCG/ML VIAL IM SCH (17:45)
[2016-05-06] VITALS (7 sets, daily range): BP systolic 86–95; BP diastolic 40–50
[2016-05-06] MEDS: PANTOPRAZOLE 40 MG TABLET. PO SCH (06:31)
[2016-05-06] MEDS: IPRATRPIUM/ALBUTEROL 0.5/2.5MG 3 ML NEBU. NEB SCH ×4 (08:53→19:56)
[2016-05-06] MEDS: BUDESONIDE 0.5 MG/2 ML NEBU NEB SCH (08:53)
--- NOTE | 2016-05-06 09:08 | PDOC ---
Provider Note Provider Note diffuse wheezes and basilar rales, likely sec. bronchitis w/ copd as well as chf - will add short course po pred as well as levoflox to current meds- d/w daughter, will need panendo re iron deficiency anemia as she needs antiplatelet meds ongoing DOYLE VILLA MD May 06, 2016 09:08
[2016-05-06] MEDS ORDERED: PREDNISONE 10 MG TABLET PO SCH (09:30)
--- NOTE | 2016-05-06 09:59 | PDOC ---
SIMON ROSAS WORM FARMER 05/06/16 0958: CARDIO Progress Notes Date and Time Date of Service 05/06/2016 Time of Evaluation 0920 Subjective Subjective: No Chest Pain, No Palpitations, No Dizziness, Other (PATRICIA and mild SOA supine) Vitals Vitals Vital Signs Date Time Temp Pulse Resp B/P Pulse Ox O2 Delivery O2 Flow Rate FiO2 05/06/16 08:53 Room Air 05/06/16 07:04 98.1 97 16 91/49 98 98.1 05/05/16 13:30 2.0 Weight Weight [ ] Input and Output Intake and Output Intake and Output 05/06/16 07:00 Intake Total 340 ml Output Total 1050 ml Balance -710 ml Intake Oral 340 ml Output Urine Total 1050 ml # Voids 1 Laboratory Labs Laboratory Tests Test 05/05/16 14:50 05/05/16 16:21 05/05/16 21:09 05/06/16 08:00 Heparin Anti-Xa Act, Unfractionated < 0.10IU/mL (0.30-0.70) Glucose (Fingerstick) 151mg/dL (70-99) 131mg/dL (70-99) 120mg/dL (70-99) Physical Exam HEENT: Neck Supple W Full Motion Chest: Symmetric LUNGS: Other (faint expiratory wheeze, basilar crackles) Heart: S1S2, RRR, murmurs (2/6 systolic murmur to LLS border) Abdomen: Soft N/T Extremities: No Calf Tenderness, Other (3+ bilateral LE pitting edema) Neurology: alert, oriented Other Exams right groin arteriotomy site intact, no swelling, no erythema. Neurovascular status to bilateral LE intact. Assessment Assessment 1. NSTEMI/CAD: S/P PCI/BMS to LAD 2. ICM: EF 25-30% 3. Acute on chronic diastolic/systolic CHF 4. AECOPD/Pulmonary HTN: 45 mmHg per cath and 70 mmHg per TTE 5. Microcytic hypochromic anemia: Hgb stable at 8.9 post 2 U PRBC Plan 1. DAPT with ASA 81 mg (indefinitely), brilinta at least 6 weeks 2. Continue with PPI, future endoscopy to coordinate with GI in the future. Appreciate GI recommendation 3. Follow pulmonary recommendations 4. Continue diuretic therapy per BP trend. 5. Lipid panel, statin per level. 6. Start on toprol XL pending BP trend. HR at 90-100, goal set at <70. Will consider on low dose ACEi as well. 7. Anticipate DC tomorrow 8. Reeval EF in 3 months and note need for AICD. Lifevest a consideration. 9. Continue with optimization including lifestyle modification primarily smoking cessation. 10. Recommend cardiac rehab. 11. CBC, BMP, Mg BEAU MARY MD 05/06/16 1703: CARDIO Progress Notes Plan Plan Patient seen and examined. Agree with above nurse practitioner noted. events overnight. Continues to have some dyspnea. On exam she has rhonchi bilaterally. Right groin access site is clean, dry and intact. Trace edema of the lower extremities. We will continue to gently diurese. Unable to tolerate Clint inhibitors or beta blockers given her hypotension. Outpatient evaluation for her anemia. Supportive care. We will follow along. SIMON ROSAS APRN May 06, 2016 09:58 BEAU MARY MD May 06, 2016 17:03
[2016-05-06] MEDS: ASPIRIN ENTERIC COATED 81 MG TABLET.DR. PO SCH (10:00)
[2016-05-06] MEDS: CYANOCOBALAMIN (VITAMIN B-12) 1,000 MCG/ML VIAL IM SCH (10:00)
[2016-05-06] MEDS: FUROSEMIDE 40 MG/4 ML VIAL IVP SCH ×2 (10:00→11:30)
[2016-05-06] MEDS: TICAGRELOR 90 MG TABLET. PO SCH ×2 (10:01→21:12)
[2016-05-06 10:32] LABS: CHOLESTEROL/HDL RATIO 2.2
--- NOTE | 2016-05-06 10:34 | RAD ---
Indication shortness of air. Anemia. Cough. History of COPD. A single view of the chest was obtained and is compared to a study 4 days earlier. Mild enlargement of the cardiac silhouette is again seen. There are mild changes of congestive heart failure but in this regard the appearance of the chest has improved somewhat relative to the previous exam. There is likely a tiny pleural effusion similar to the previous study. There is no consolidated pneumonia. A new finding in the chest is not seen. IMPRESSION: Slight interval improvement in the appearance of the chest. No new finding seen
--- NOTE | 2016-05-06 10:40 | PDOC ---
PULMONARY PROGRESS NOTES Subjective SLEEPY Vitals Vital Signs Date Time Temp Pulse Resp B/P Pulse Ox O2 Delivery O2 Flow Rate FiO2 05/06/16 10:22 91/40 05/06/16 08:53 Room Air 05/06/16 07:04 98.1 97 16 98 98.1 05/05/16 13:30 2.0 ROS: No Nausea, No Chest Pain General: Alert HEENT: Other (nc at perrl, throat nose clear) Lungs: Crackles Cardiovascular: S1, S2 Abdomen: Soft, Non-tender, Other (no mass) Neuro Exam: Alert, Oriented Extremities: Other (edema) Skin: Warm Labs Laboratory Tests Test 05/04/16 13:50 05/04/16 17:55 05/04/16 21:02 05/05/16 03:19 White Blood Count 6.2x10^3/uL (4.0-11.0) 7.5x10^3/uL (4.0-11.0) Red Blood Count 3.85x10^6/uL (3.50-5.40) 4.13x10^6/uL (3.50-5.40) Hemoglobin 8.5g/dL (12.0-15.5) 8.9g/dL (12.0-15.5) Hematocrit 26.8% (36.0-47.0) 28.0% (36.0-47.0) Mean Corpuscular Volume 70fL (79-100) 68fL (79-100) Mean Corpuscular Hemoglobin 22pg (25-35) 22pg (25-35) Mean Corpuscular Hemoglobin Concent 32g/dL (31-37) 32g/dL (31-37) Red Cell Distribution Width 22.9% (11.5-14.5) 23.6% (11.5-14.5) Platelet Count 273x10^3/uL (140-400) 309x10^3/uL (140-400) Heparin Anti-Xa Act, Unfractionated 0.29IU/mL (0.30-0.70) 0.38IU/mL (0.30-0.70) Sodium Level 137mmol/L (136-145) Potassium Level 3.5mmol/L (3.5-5.1) Chloride Level 100mmol/L (98-107) Carbon Dioxide Level 26mmol/L (21-32) Anion Gap 11 (6-14) Blood Urea Nitrogen 23mg/dL (7-20) Creatinine 1.0mg/dL (0.6-1.0) Estimated GFR (Cockcroft-Gault) 54.3 Glucose Level 115mg/dL (70-99) Calcium Level 8.6mg/dL (8.5-10.1) Triglycerides Level 51mg/dL (0-150) Cholesterol Level 117mg/dL (0-200) LDL Cholesterol, Calculated 54mg/dL (0-100) VLDL Cholesterol, Calculated 10mg/dL (0-40) HDL Cholesterol 53mg/dL (40-60) Cholesterol/HDL Ratio 2.2 Test 05/05/16 08:50 05/05/16 14:50 05/05/16 16:21 05/05/16 21:09 Heparin Anti-Xa Act, Unfractionated 0.25IU/mL (0.30-0.70) < 0.10IU/mL (0.30-0.70) Glucose (Fingerstick) 151mg/dL (70-99) 131mg/dL (70-99) Test 05/06/16 08:00 Glucose (Fingerstick) 120mg/dL (70-99) Laboratory Tests Test 05/05/16 14:50 05/05/16 16:21 05/05/16 21:09 05/06/16 08:00 Heparin Anti-Xa Act, Unfractionated < 0.10IU/mL (0.30-0.70) Glucose (Fingerstick) 151mg/dL (70-99) 131mg/dL (70-99) 120mg/dL (70-99) Medications Active Scripts Medications Dose Route/Sig Days Date Category Metformin Hcl 500 Mg Tablet 1 Tab PO DAILY 05/03/16 Reported Lisinopril 5 Mg Tablet 1 Tab PO DAILY 05/03/16 Reported Klor-Con M20 (Potassium Chloride) 20 Meq Tab.er.prt 1 Tab PO 3X/WEEK 05/03/16 Reported Furosemide 40 Mg Tablet 1 Tab PO 3X/WEEK 05/03/16 Reported Comments cxr reviewed, Heart is borderline enlarged. Pulmonary vasculature and interstitial lung markings are increased. Costophrenic angles are minimally blunted. Presumed apical scarring bilaterally is relatively symmetric. Leads overlie the patient. Impression . IMPRESSION: 1. Acute hypoxemic respiratory failure, multifactorial in etiology. 2. Abnormal chest x-ray, Pulmonary edema 3. Acute congestive heart failure, systolic versus diastolic. 4. non-ST elevation myocardial infarction.S/P STENTS 5. Acute kidney injury. 6. Anemia 7. Chronic obstructive pulmonary disease with mild acute exacerbation. 8. Tobacco habituation. 9. Moderate pulmonary HTN. mPA 45 mm Hg. Plan . S/P CATH stents anxiety decrease Ativan d/c smoking continue the same ELVIA Keller MD May 06, 2016 10:40
[2016-05-06 12:09] LABS: BASO % 0 % (0-3); EOS % 0 % (0-3); HEMATOCRIT 27.5 % (36.0-47.0); HEMOGLOBIN 8.5 g/dL (12.0-15.5); LYMPH # 0.6 x10^3/uL (1.0-4.8); LYMPH % 8 % (24-48); MEAN CORPUSCULAR HEMOGLOBIN 21 pg (25-35); MEAN CORPUSCULAR HGB CONC 31 g/dL (31-37); MEAN CORPUSCULAR VOLUME 69 fL (79-100); MONO % 15 % (0-9); NEUT % 77 % (31-73); PLATELET COUNT 288 x10^3/uL (140-400); RED BLOOD COUNT 3.98 x10^6/uL (3.50-5.40); RED CELL DISTRIBUTION WIDTH 24.2 % (11.5-14.5); WHITE BLOOD COUNT 8.2 x10^3/uL (4.0-11.0)
[2016-05-06 12:21] LABS: CALCIUM 8.6 mg/dL (8.5-10.1); GFR 54.3; POTASSIUM 3.4 mmol/L (3.5-5.1)
--- NOTE | 2016-05-06 12:53 | PDOC ---
Subjective: Subjective: No GI complaints. Objective: Objective: Per RN - possible DC tomorrow, no GI issues, plans for outpt 'scopes. Vital Signs: Vital Signs Date Time Temp Pulse Resp B/P Pulse Ox O2 Delivery O2 Flow Rate FiO2 05/06/16 12:05 97 Room Air 05/06/16 11:07 98.1 95 20 98.1 05/06/16 10:22 91/40 05/05/16 13:30 2.0 Labs: Laboratory Tests Test 05/05/16 14:50 05/05/16 16:21 05/05/16 21:09 05/06/16 08:00 Heparin Anti-Xa Act, Unfractionated < 0.10IU/mL Glucose (Fingerstick) 151mg/dL 131mg/dL 120mg/dL Test 05/06/16 11:35 05/06/16 12:12 White Blood Count 8.2x10^3/uL Red Blood Count 3.98x10^6/uL Hemoglobin 8.5g/dL Hematocrit 27.5% Mean Corpuscular Volume 69fL Mean Corpuscular Hemoglobin 21pg Mean Corpuscular Hemoglobin Concent 31g/dL Red Cell Distribution Width 24.2% Platelet Count 288x10^3/uL Neutrophils (%) (Auto) 77% Lymphocytes (%) (Auto) 8% Monocytes (%) (Auto) 15% Eosinophils (%) (Auto) 0% Basophils (%) (Auto) 0% Neutrophils # (Auto) 6.4x10^3uL Lymphocytes # (Auto) 0.6x10^3/uL Monocytes # (Auto) 1.2x10^3/uL Eosinophils # (Auto) 0.0x10^3/uL Basophils # (Auto) 0.0x10^3/uL Sodium Level 138mmol/L Potassium Level 3.4mmol/L Chloride Level 99mmol/L Carbon Dioxide Level 26mmol/L Anion Gap 13 Blood Urea Nitrogen 27mg/dL Creatinine 1.0mg/dL Estimated GFR (Cockcroft-Gault) 54.3 Glucose Level 122mg/dL Calcium Level 8.6mg/dL Magnesium Level 2.0mg/dL Glucose (Fingerstick) 109mg/dL PE: GEN: NAD, sitting on edge of bed w/ lunch LUNGS: clear anteriorly HEART: S1S2 ABD: S/ND/NT NEURO/PSYCH: A & O 3 A/P: ANA -Hgb improved/stable s/p transfusion 2 units pRBCs 05/03 -no previous EGD or colonoscopy, no obvious GI bleeding -on PPI, B12 NSTEMI/CAD sp PCI 05/05 -now on Brilinta (x 6 weeks), ASA -- Plans for outpatient EGD and colonoscopy. SARAHI GALVAN May 06, 2016 12:53
[2016-05-06] MEDS: LEVOFLOXACIN 500 MG TABLET PO SCH (13:02)
[2016-05-06] MEDS ORDERED: POTASSIUM CHLORIDE 20 MEQ TABLET.ER. PO ONE (15:45)
[2016-05-06] MEDS: DIGOXIN 125 MCG TABLET PO SCH (17:55)
[2016-05-06] MEDS ORDERED: ATORVASTATIN CALCIUM 10 MG TABLET. PO SCH (21:00)
[2016-05-07 03:21] VITALS: BP 92/51
[2016-05-07 07:00] VITALS: BP 97/54
[2016-05-07] MEDS: IPRATRPIUM/ALBUTEROL 0.5/2.5MG 3 ML NEBU. NEB SCH ×3 (07:37→15:48)
[2016-05-07] MEDS ORDERED: PREDNISONE 10 MG TABLET PO SCH (08:00)
--- NOTE | 2016-05-07 08:36 | DISCH ---
DISCHARGE INSTRUCTIONS Condition on Discharge Condition on Discharge: Stable Activity After Discharge Activity Instructions for Disc: No restrictions Diet after Discharge Diet after Discharge: Diabetic No Calorie Level Follow-Up Follow up with: as scheduled DOYLE VILLA MD May 07, 2016 08:36
--- NOTE | 2016-05-07 08:40 | PDOC ---
Provider Note Provider Note [id number] DOYLE VILLA MD May 07, 2016 08:40
[2016-05-07] MEDS: FUROSEMIDE 40 MG/4 ML VIAL IVP SCH (09:00)
[2016-05-07] MEDS: ASPIRIN ENTERIC COATED 81 MG TABLET.DR. PO SCH (09:22)
[2016-05-07] MEDS: TICAGRELOR 90 MG TABLET. PO SCH (09:22)
[2016-05-07] MEDS: DIGOXIN 125 MCG TABLET PO SCH (09:23)
[2016-05-07] MEDS: CYANOCOBALAMIN (VITAMIN B-12) 1,000 MCG/ML VIAL IM SCH (09:23)
[2016-05-07] MEDS: PANTOPRAZOLE 40 MG TABLET. PO SCH (09:23)
--- NOTE | 2016-05-07 09:39 | PDOC ---
PULMONARY PROGRESS NOTES Subjective NO SOA Vitals Vital Signs Date Time Temp Pulse Resp B/P Pulse Ox O2 Delivery O2 Flow Rate FiO2 05/07/16 09:23 98 05/07/16 07:50 Room Air 05/07/16 07:38 99 05/07/16 07:00 97.3 18 97/54 97.3 ROS: No Nausea, No Chest Pain General: Alert HEENT: Other (nc at perrl, throat nose clear) Lungs: Crackles Cardiovascular: S1, S2 Abdomen: Soft, Non-tender, Other (no mass) Neuro Exam: Alert, Oriented Extremities: Other (edema) Skin: Warm Labs Laboratory Tests Test 05/05/16 14:50 05/05/16 16:21 05/05/16 21:09 05/06/16 08:00 Heparin Anti-Xa Act, Unfractionated < 0.10IU/mL (0.30-0.70) Glucose (Fingerstick) 151mg/dL (70-99) 131mg/dL (70-99) 120mg/dL (70-99) Test 05/06/16 11:35 05/06/16 12:12 05/06/16 16:49 05/06/16 20:44 White Blood Count 8.2x10^3/uL (4.0-11.0) Red Blood Count 3.98x10^6/uL (3.50-5.40) Hemoglobin 8.5g/dL (12.0-15.5) Hematocrit 27.5% (36.0-47.0) Mean Corpuscular Volume 69fL (79-100) Mean Corpuscular Hemoglobin 21pg (25-35) Mean Corpuscular Hemoglobin Concent 31g/dL (31-37) Red Cell Distribution Width 24.2% (11.5-14.5) Platelet Count 288x10^3/uL (140-400) Neutrophils (%) (Auto) 77% (31-73) Lymphocytes (%) (Auto) 8% (24-48) Monocytes (%) (Auto) 15% (0-9) Eosinophils (%) (Auto) 0% (0-3) Basophils (%) (Auto) 0% (0-3) Neutrophils # (Auto) 6.4x10^3uL (1.8-7.7) Lymphocytes # (Auto) 0.6x10^3/uL (1.0-4.8) Monocytes # (Auto) 1.2x10^3/uL (0.0-1.1) Eosinophils # (Auto) 0.0x10^3/uL (0.0-0.7) Basophils # (Auto) 0.0x10^3/uL (0.0-0.2) Sodium Level 138mmol/L (136-145) Potassium Level 3.4mmol/L (3.5-5.1) Chloride Level 99mmol/L (98-107) Carbon Dioxide Level 26mmol/L (21-32) Anion Gap 13 (6-14) Blood Urea Nitrogen 27mg/dL (7-20) Creatinine 1.0mg/dL (0.6-1.0) Estimated GFR (Cockcroft-Gault) 54.3 Glucose Level 122mg/dL (70-99) Calcium Level 8.6mg/dL (8.5-10.1) Magnesium Level 2.0mg/dL (1.8-2.4) Glucose (Fingerstick) 109mg/dL (70-99) 168mg/dL (70-99) 291mg/dL (70-99) Test 05/07/16 08:11 Glucose (Fingerstick) 125mg/dL (70-99) Laboratory Tests Test 05/06/16 11:35 05/06/16 12:12 05/06/16 16:49 05/06/16 20:44 White Blood Count 8.2x10^3/uL (4.0-11.0) Red Blood Count 3.98x10^6/uL (3.50-5.40) Hemoglobin 8.5g/dL (12.0-15.5) Hematocrit 27.5% (36.0-47.0) Mean Corpuscular Volume 69fL (79-100) Mean Corpuscular Hemoglobin 21pg (25-35) Mean Corpuscular Hemoglobin Concent 31g/dL (31-37) Red Cell Distribution Width 24.2% (11.5-14.5) Platelet Count 288x10^3/uL (140-400) Neutrophils (%) (Auto) 77% (31-73) Lymphocytes (%) (Auto) 8% (24-48) Monocytes (%) (Auto) 15% (0-9) Eosinophils (%) (Auto) 0% (0-3) Basophils (%) (Auto) 0% (0-3) Neutrophils # (Auto) 6.4x10^3uL (1.8-7.7) Lymphocytes # (Auto) 0.6x10^3/uL (1.0-4.8) Monocytes # (Auto) 1.2x10^3/uL (0.0-1.1) Eosinophils # (Auto) 0.0x10^3/uL (0.0-0.7) Basophils # (Auto) 0.0x10^3/uL (0.0-0.2) Sodium Level 138mmol/L (136-145) Potassium Level 3.4mmol/L (3.5-5.1) Chloride Level 99mmol/L (98-107) Carbon Dioxide Level 26mmol/L (21-32) Anion Gap 13 (6-14) Blood Urea Nitrogen 27mg/dL (7-20) Creatinine 1.0mg/dL (0.6-1.0) Estimated GFR (Cockcroft-Gault) 54.3 Glucose Level 122mg/dL (70-99) Calcium Level 8.6mg/dL (8.5-10.1) Magnesium Level 2.0mg/dL (1.8-2.4) Glucose (Fingerstick) 109mg/dL (70-99) 168mg/dL (70-99) 291mg/dL (70-99) Test 05/07/16 08:11 Glucose (Fingerstick) 125mg/dL (70-99) Medications Active Scripts Medications Dose Route/Sig Days Date Category Metformin Hcl 500 Mg Tablet 1 Tab PO DAILY 05/03/16 Reported Lisinopril 5 Mg Tablet 1 Tab PO DAILY 05/03/16 Reported Klor-Con M20 (Potassium Chloride) 20 Meq Tab.er.prt 1 Tab PO 3X/WEEK 05/03/16 Reported Furosemide 40 Mg Tablet 1 Tab PO 3X/WEEK 05/03/16 Reported Comments cxr reviewed, Heart is borderline enlarged. Pulmonary vasculature and interstitial lung markings are increased. Costophrenic angles are minimally blunted. Presumed apical scarring bilaterally is relatively symmetric. Leads overlie the patient. Impression . IMPRESSION: 1. Acute hypoxemic respiratory failure, multifactorial in etiology. 2. Abnormal chest x-ray, Pulmonary edema 3. Acute congestive heart failure, systolic versus diastolic. 4. non-ST elevation myocardial infarction.S/P STENTS 5. Acute kidney injury. 6. Anemia 7. Chronic obstructive pulmonary disease with mild acute exacerbation. 8. Tobacco habituation. 9. Moderate pulmonary HTN. mPA 45 mm Hg. Plan . S/P CATH stents D/C HOME 6 MIN WALK FOLLOW UP IN OFFICE d/c smoking ELVIA WILLIS MD May 07, 2016 09:39
--- NOTE | 2016-05-07 09:41 | PDOC ---
SIMON ROSAS RECORD PRESSMAN 05/07/16 0941: CARDIO Progress Notes Date and Time Date of Service 05/07/2016 Time of Evaluation 0920 Subjective Subjective: No Chest Pain, No shortness of breath, No Palpitations, No Dizziness Vitals Vitals Vital Signs Date Time Temp Pulse Resp B/P Pulse Ox O2 Delivery O2 Flow Rate FiO2 05/07/16 09:23 98 05/07/16 07:50 Room Air 05/07/16 07:38 99 05/07/16 07:00 97.3 18 97/54 97.3 Weight Weight [ ] Input and Output Intake and Output Intake and Output 05/07/16 07:00 Intake Total 1300 ml Output Total 1600 ml Balance -300 ml Intake Oral 1300 ml Output Urine Total 1600 ml # Bowel Movements 1 Laboratory Labs Laboratory Tests Test 05/06/16 11:35 05/06/16 12:12 05/06/16 16:49 05/06/16 20:44 White Blood Count 8.2x10^3/uL (4.0-11.0) Red Blood Count 3.98x10^6/uL (3.50-5.40) Hemoglobin 8.5g/dL (12.0-15.5) Hematocrit 27.5% (36.0-47.0) Mean Corpuscular Volume 69fL (79-100) Mean Corpuscular Hemoglobin 21pg (25-35) Mean Corpuscular Hemoglobin Concent 31g/dL (31-37) Red Cell Distribution Width 24.2% (11.5-14.5) Platelet Count 288x10^3/uL (140-400) Neutrophils (%) (Auto) 77% (31-73) Lymphocytes (%) (Auto) 8% (24-48) Monocytes (%) (Auto) 15% (0-9) Eosinophils (%) (Auto) 0% (0-3) Basophils (%) (Auto) 0% (0-3) Neutrophils # (Auto) 6.4x10^3uL (1.8-7.7) Lymphocytes # (Auto) 0.6x10^3/uL (1.0-4.8) Monocytes # (Auto) 1.2x10^3/uL (0.0-1.1) Eosinophils # (Auto) 0.0x10^3/uL (0.0-0.7) Basophils # (Auto) 0.0x10^3/uL (0.0-0.2) Sodium Level 138mmol/L (136-145) Potassium Level 3.4mmol/L (3.5-5.1) Chloride Level 99mmol/L (98-107) Carbon Dioxide Level 26mmol/L (21-32) Anion Gap 13 (6-14) Blood Urea Nitrogen 27mg/dL (7-20) Creatinine 1.0mg/dL (0.6-1.0) Estimated GFR (Cockcroft-Gault) 54.3 Glucose Level 122mg/dL (70-99) Calcium Level 8.6mg/dL (8.5-10.1) Magnesium Level 2.0mg/dL (1.8-2.4) Glucose (Fingerstick) 109mg/dL (70-99) 168mg/dL (70-99) 291mg/dL (70-99) Test 05/07/16 08:11 Glucose (Fingerstick) 125mg/dL (70-99) Physical Exam HEENT: Neck Supple W Full Motion Chest: Symmetric LUNGS: Other (faint basilar crackles, diminished) Heart: S1S2, RRR (SR without significant rhythm ectopies), murmurs (2/6 systolic murmur to LLS border) Abdomen: Soft N/T Extremities: No Calf Tenderness, Other (2+ bilateral pedal pitting edema) Neurology: alert, oriented, follow commands Assessment Assessment 1. NSTEMI/CAD: S/P PCI/BMS to LAD 2. ICM: EF 25-30% 3. Acute on chronic diastolic/systolic CHF: compensated 4. AECOPD/pulmonary HTN 5. Microcytic hypochromic anemia: Hgb stable at 8.5 post 2 U PRBC Recommendations 1. BP better. HR 90-100. Continue with Dig. Start lisinopril 2.5 toprol XL 12.5 lasix 40 mg po daily with KCL supplement 2. Lifevest today. 3. If good response with above med changes then possible DC late this afternoon. 4. Discussed cardiac meds and lifestyle modification as well as smoking cessation 5. Reeval EF in 3 months for AICD consideration after optimization period. 6. ASA 81 mg indefinitely. Brilinta at least 6 weeks. 30 day Brilinta card provided. 7. Follow up in our office in 4 weeks. 8. Continue with secondary prevention. Daily home BP/HR/weight monitoring. 1999 FR. 9. PT/OT eval and treat today, home health rehab consideration 10. Future endoscopy per GI. Provided pt with 1 month yosprala. Protonix to start post yosprala. 11. Will arrange for home health CHF team via [facility]. BEAU MARY MD 05/07/16 1901: CARDIO Progress Notes Plan Plan Patient seen and examined. Agree with above nurse practitioner noted. No acute events overnight. Reports feeling better today after diuresis. Mildly tachycardic on exam but otherwise lungs are fairly clear. Labs and medication reviewed. Plan as noted above. SIMON ROSAS APRN May 07, 2016 09:41 BEAU MARY MD May 07, 2016 19:01
--- NOTE | 2016-05-07 09:45 | PDOC ---
Subjective: Subjective: No GI complaints. Ready to DC. Objective: Objective: Per RN - no GI complaints. Vital Signs: Vital Signs Date Time Temp Pulse Resp B/P Pulse Ox O2 Delivery O2 Flow Rate FiO2 05/07/16 09:23 98 05/07/16 07:50 Room Air 05/07/16 07:38 99 05/07/16 07:00 97.3 18 97/54 97.3 Labs: Laboratory Tests Test 05/06/16 11:35 05/06/16 12:12 05/06/16 16:49 05/06/16 20:44 White Blood Count 8.2x10^3/uL Red Blood Count 3.98x10^6/uL Hemoglobin 8.5g/dL Hematocrit 27.5% Mean Corpuscular Volume 69fL Mean Corpuscular Hemoglobin 21pg Mean Corpuscular Hemoglobin Concent 31g/dL Red Cell Distribution Width 24.2% Platelet Count 288x10^3/uL Neutrophils (%) (Auto) 77% Lymphocytes (%) (Auto) 8% Monocytes (%) (Auto) 15% Eosinophils (%) (Auto) 0% Basophils (%) (Auto) 0% Neutrophils # (Auto) 6.4x10^3uL Lymphocytes # (Auto) 0.6x10^3/uL Monocytes # (Auto) 1.2x10^3/uL Eosinophils # (Auto) 0.0x10^3/uL Basophils # (Auto) 0.0x10^3/uL Sodium Level 138mmol/L Potassium Level 3.4mmol/L Chloride Level 99mmol/L Carbon Dioxide Level 26mmol/L Anion Gap 13 Blood Urea Nitrogen 27mg/dL Creatinine 1.0mg/dL Estimated GFR (Cockcroft-Gault) 54.3 Glucose Level 122mg/dL Calcium Level 8.6mg/dL Magnesium Level 2.0mg/dL Glucose (Fingerstick) 109mg/dL 168mg/dL 291mg/dL Test 05/07/16 08:11 Glucose (Fingerstick) 125mg/dL PE: GEN: NAD, walking around room LUNGS: CTAB HEART: tachycardic ABD: S/ND/NT NEURO/PSYCH: A & O 3 A/P: ANA -Hgb stable -no previous EGD or colonoscopy, no obvious GI bleeding -on PPI, B12 NSTEMI/CAD sp PCI 05/05 -now on Brilinta (x 6 weeks), ASA -- Outpatient EGD and colonoscopy when off Brilinta. Will have our office contact her. Can monitor labs w/ PCP until then. Continue PPI and B12. SARAHI GALVAN May 07, 2016 09:45
[2016-05-07] MEDS ORDERED: FUROSEMIDE 40 MG TABLET PO SCH (10:30)
[2016-05-07] MEDS ORDERED: LISINOPRIL 2.5 MG TABLET PO SCH (10:30)
[2016-05-07] MEDS ORDERED: METOPROLOL SUCC 24HR ER 25 MG TAB.ER.24H. PO SCH (10:30)
[2016-05-07 11:00] VITALS: BP 95/48
--- NOTE | 2016-05-07 11:54 | DS ---
DATE OF DISCHARGE: 05/07/2016 HOSPITAL SUMMARY: This 75-year-old female, known diabetic with recent congestive heart failure, came in with increasing congestive heart failure and productive cough consistent with asthmatic bronchitis as well. Doppler studies of the legs were normal. Coronary arteriogram was done, which showed a 95% proximal LAD, some moderate circumflex lesions. Stent was placed in the LAD per Dr. Gary. Her hemoglobin was low on admission at 8.6 and remained stable at that range. The MCV is low, the iron is low, the TRBC is high, and B12 is normal consistent with iron deficiency anemia of unknown cause. Echocardiogram showed a low ejection fraction of 30%. She is on aspirin and Brilinta as well as prednisone and Levaquin for the COPD/bronchitis and is doing better and comfortable to be followed as an outpatient at this time. She is unable to tolerate beta blockers and KENNEDY inhibitors because of low blood pressure. FINAL DIAGNOSES: 1. Congestive heart failure secondary to ischemic cardiomyopathy. 2. Chronic obstructive pulmonary disease with secondary bronchitis. 3. Chronic tobacco abuse. 4. Iron deficiency anemia, etiology undetermined. OPERATIONS AND PROCEDURES: Coronary arteriograms, left anterior descending artery angioplasty and stent placement. COMPLICATIONS: None. CONSULTATIONS: Dr. Gary and Dr. Hodges. DISPOSITION: She will have an outpatient EGD and colonoscopy regarding the anemia. We will give her 5 days of prednisone and Levaquin to treat the bronchitis. She will take Lasix, aspirin, and Brilinta per the railroad car letterer, but no KENNEDY inhibitors or beta blockers for now. She is on simvastatin 20 mg daily after the stent placement despite low lipid profile. Continue metformin for diabetes. An office followup as needed and prognosis is guarded based on the results of her EGD and colonoscopy. DOYLE VILLA MD DR: LOGAN/madison JOB#: [id number] / [id number]
[2016-05-07] MEDS: LEVOFLOXACIN 500 MG TABLET PO SCH (12:46)
[2016-05-07] MEDS ORDERED: POTA20TA82 PO (14:35)
[2016-05-07] MEDS ORDERED: TICA90TA PO (14:35)
[2016-05-07] MEDS ORDERED: PRED-220 PO (14:36)
[2016-05-07] MEDS ORDERED: LEVO500T38 PO (14:36)
[2016-05-07] MEDS ORDERED: METO25TA9 PO (14:37)
[2016-05-07] MEDS ORDERED: FURO40TA4 PO (14:37)
[2016-05-07] MEDS ORDERED: LISI2.5T PO (14:37)
[2016-05-07] MEDS ORDERED: DIGO125T PO (14:38)
[2016-05-07] MEDS ORDERED: PANT40TA5 PO (14:40)
[2016-05-07] MEDS ORDERED: ATOR10TA60 PO (14:40)
[2016-05-07] MEDS ORDERED: ASPI81TA2 PO (14:41)
[2016-05-07 15:00] VITALS: BP 95/50
== END 2016-05-07 17:15 | disposition home health service (06) | DRG 248 ==
LOC: ER 22:16 → 1 WEST ICU 23:52 → 5 NORTH 05-04 16:06 → 2 SOUTH 05-05 12:54
PROVIDERS: ADMIT Family Medicine; ATTEND Family Medicine
PROC: 30233N1 Transfusion of Nonautologous Red Blood Cells into Peripheral Vein, Percutaneous Approach (ICD-10-PCS; 2016-05-03)
PROC: 02703DZ Dilation of Coronary Artery, One Artery with Intraluminal Device, Percutaneous Approach (ICD-10-PCS; principal; 2016-05-05)
PROC: 4A023N8 Measurement of Cardiac Sampling and Pressure, Bilateral, Percutaneous Approach (ICD-10-PCS; 2016-05-05)
PROC: B2151ZZ Fluoroscopy of Left Heart using Low Osmolar Contrast (ICD-10-PCS; 2016-05-05)
PROC: B2111ZZ Fluoroscopy of Multiple Coronary Arteries using Low Osmolar Contrast (ICD-10-PCS; 2016-05-05)
DX: I21.4 Non-ST elevation (NSTEMI) myocardial infarction (principal); I50.43 Acute on chronic combined systolic (congestive) and diastolic (congestive) heart failure; J96.01 Acute respiratory failure with hypoxia; J44.1 Chronic obstructive pulmonary disease with (acute) exacerbation; N17.9 Acute kidney failure, unspecified; D50.0 Iron deficiency anemia secondary to blood loss (chronic); I11.0 Hypertensive heart disease with heart failure; E11.9 Type 2 diabetes mellitus without complications; F17.200 Nicotine dependence, unspecified, uncomplicated; I25.10 Atherosclerotic heart disease of native coronary artery without angina pectoris; I25.5 Ischemic cardiomyopathy; I27.2 Other secondary pulmonary hypertension; Z82.5 Family history of asthma and other chronic lower respiratory diseases; Z88.0 Allergy status to penicillin; Z88.8 Allergy status to other drugs, medicaments and biological substances; Z90.49 Acquired absence of other specified parts of digestive tract; Z79.899 Other long term (current) drug therapy; Z71.6 Tobacco abuse counseling
CPT/HCPCS: 36415; 71010; 80048; 80061; 80076; 82607; 82746; 82947; 83540; 83550; 83690; 83735; 83880; 84484; 85007; 85027; 85045; 85520; 85610; 85730; 86850; 86900; 86901; 86920; 87641; 92928; 93005; 93460; 93970; 94250; 94620; 94640; 96374; 99406; C1725; C1769; C1771; C1773; C1877; C1887; C1892; C9113; G0269; J0583; J1940; J2060; J2250; J3010; J3420; J7512; J7620; P9016; Q9967; S0028; 99285-25

== ENCOUNTER → 2016-08-01 | Day surgery (SDC) | payer MEDICARE, MEDICAID ==
[~2016-08-01] MED LIST changes: +ALBUTEROL SULFATE 2.5 MG/3 ML NEBU. NEB ONE; +ASPI-630 PO; +ATOR10TA60 PO; +DIGO125T PO; +FERR-26 PO; +HYDROmorphone 2 MG/ML VIAL IV PRN; +IV RINGERS,LACTATED 1000ML 1,000 ML IV SCH; +LEVO500T59 PO; +LIDOCAINE 1% 1 ML SYRINGE. ID PRN; +LIDOCAINE 2% PF Vial for OR 5 ML VIAL. ONE; +LISI2.5T PO; +METO25TA9 PO; +MORPHINE SULFATE 2 MG/ML DISP.SYRIN. IV PRN; +OMEP20TA8 PO; +ONDANSETRON PF 4 MG/2 ML VIAL. IV PRN; +PANT40TA5 PO; +POTA20TA82 PO; +POTASSIUM CHLO10 MEQ PO; +PRED-220 PO; +PROCHLORPERAZINE 10 MG/2 ML VIAL. IV PRN; +PROPOFOL 40 ML IV ONE; +TICA90TA PO; +VENTOLIN HFA18 GM INH; +fentaNYL PF VIAL 100 MCG/2 ML VIAL IV PRN
[2016-08-01 11:33] VITALS: BP 130/63
--- NOTE | 2016-08-02 00:16 | HP ---
ADMIT DATE: 08/01/2016 HISTORY OF PRESENT ILLNESS: This is a 75-year-old female whose past medical history is significant for COPD, hyperlipidemia, ____ heart disease, hypertension, gastroesophageal reflux disease, also has iron deficiency anemia who is seen for further evaluation. Recent blood counts, hemoglobin has been 7.8. The patient denies any dysphagia or odynophagia at this time. Denies any melena and/or hematochezia. Weight has stabilized. There is no family history of colon polyps or colon cancer with continued anemia. She requests additional evaluation. PAST MEDICAL HISTORY: ____ heart disease, hypertension, AFib, COPD, hyperlipidemia. ALLERGIES: PENICILLIN AND IBUPROFEN. MEDICATIONS: Include Ventolin, aspirin, atorvastatin, digoxin, furosemide, ferrous sulfate, metoprolol, pantoprazole, potassium, and prednisone. PAST SURGICAL HISTORY: Per records. SOCIAL HISTORY: Social drinker, nonsmoker at this time. FAMILY HISTORY: Noncontributory. REVIEW OF SYSTEMS: Per records. PHYSICAL EXAMINATION: GENERAL: Reveals a thin female. VITAL SIGNS: Temperature is 98.1, pulse 77, respirations 18. HEENT: Normocephalic and atraumatic head. Pupils and extraocular muscles not tested. Sclerae anicteric. NECK: Supple. LUNGS: Clear. CARDIOVASCULAR: Reveals an S1, S2 without S3, S4 or appreciable murmur. ABDOMEN: Soft abdomen. Normoactive bowel sounds without appreciable hepatosplenomegaly. EXTREMITIES: Reveals no cyanosis, clubbing or edema. IMPRESSION: Iron deficiency anemia with weight loss. The etiology is to be determined. Differential does include inflammatory bowel disease, peptic ulcer disease, Jacob's esophageal gastric and/or colonic malignancy, arteriovenous malformation, among others; therefore, recommend upper endoscopy and colonoscopy to further assess her symptoms. Risks and benefits of procedure have been previously discussed with the patient including risk of perforation and is willing to proceed at this time. I would like to thank Dr. Elizondo for allowing us to consult and participate in patient's care. JENNIFER PACHECO MD DR: PRICILLA/madison JOB#: [id number] / [id number]
--- NOTE | 2016-08-04 22:16 | PATHOLOGY ---
PATHOLOGY REPORT * * * * * * * * FINAL DIAGNOSIS: Gastric biopsy "gastric body mass": - Moderately differentiated invasive adenocarcinoma. - Acute ulceration and intestinal metaplasia. - See comment. COMMENT: This case is also reviewed by Dr. Kathie Mccartney. This case was also discussed with Dr. Fidencio Hodges on 08/04/2016 at 1:30 pm REPORT ELECTRONICALLY SIGNED BY: Garcia Oropeza M.D. DATE/TIME: 08/04/2016 22:15 * * * * * * * * GROSS PATHOLOGY: Received in formalin labeled "McgeeSathish, gastric mass biopsy," are multiple segments of ly soft tissue measuring from 0.1 up to 0.4 cm in maximum dimension. The specimen is submitted entirely in cassette A1. (JPM; 08/01/16) INITIAL CPT CODE(S): A; 42478, 44674 Professional services performed [place] [facility] [place] [address] Technical services performed by [facility] at [address] [place] [address], [facility] [address] [address]. SPECIMEN(S) RECEIVED: A.Gastric body mass CLINICAL HISTORY: Anemia PATIENT: SATHISH MCGEE E /AGE: 9 1940 (Age: 75) PATIENT #: [id number] ALT CASE #: SPECIMEN COLLECTION DATE: 08/01/2016 SPECIMEN RECEIVED DATE: 08/01/2016 [facility] - [address] [place] [address] - PHONE: [phone] * * * END OF REPORT * * *
== END | disposition home or self-care (01) ==
LOC: ENDOS 08:24
PROVIDERS: ATTEND Internal Medicine Gastroenterology
DX: C16.2 Malignant neoplasm of body of stomach (principal); D50.9 Iron deficiency anemia, unspecified; K64.0 First degree hemorrhoids; I11.0 Hypertensive heart disease with heart failure; I50.9 Heart failure, unspecified; J44.9 Chronic obstructive pulmonary disease, unspecified; K21.9 Gastro-esophageal reflux disease without esophagitis; M19.90 Unspecified osteoarthritis, unspecified site; E11.9 Type 2 diabetes mellitus without complications; E78.5 Hyperlipidemia, unspecified; F17.200 Nicotine dependence, unspecified, uncomplicated; Z90.49 Acquired absence of other specified parts of digestive tract; Z72.0 Tobacco use
CPT/HCPCS: 43239; 45378; 88305; 88342; 94640; J2704; 94760

== ENCOUNTER → 2016-08-05 | Outpatient (CLI) | payer MEDICARE, MEDICAID ==
[2016-08-01 11:33] VITALS: BP 130/63
[~2016-08-05] MED LIST changes: -ALBUTEROL SULFATE 2.5 MG/3 ML NEBU. NEB ONE; +CONTRAST GIVEN MC PRN; -HYDROmorphone 2 MG/ML VIAL IV PRN; +IOHEXOL 240 MG/ML 50ML VIAL. PO ONE; +IOHEXOL 300 MG/ML 75 ML VIAL IV ONE; -IV RINGERS,LACTATED 1000ML 1,000 ML IV SCH; -LIDOCAINE 1% 1 ML SYRINGE. ID PRN; -LIDOCAINE 2% PF Vial for OR 5 ML VIAL. ONE; -MORPHINE SULFATE 2 MG/ML DISP.SYRIN. IV PRN; -ONDANSETRON PF 4 MG/2 ML VIAL. IV PRN; -PROCHLORPERAZINE 10 MG/2 ML VIAL. IV PRN; -PROPOFOL 40 ML IV ONE; -fentaNYL PF VIAL 100 MCG/2 ML VIAL IV PRN
--- NOTE | 2016-08-05 10:48 | RAD ---
Examination: CT of the abdomen pelvis with oral and IV contrast History: History of gastric mass Comparison: None Technique: Axial CT images of the abdomen pelvis are performed with oral and IV contrast: The liver was performed PQRS Compliance Statement: One or more of the following individualized dose reduction techniques were utilized for this examination: 1. Automated exposure control 2. Adjustment of the mA and/or kV according to patient size 3. Use of iterative reconstruction technique Findings: The visualized bibasal lungs are clear. No evidence of free air identified in the abdomen. Mild enlarged appearing intrahepatic bile duct is. There is mild hepatic steatosis The common bile duct is prominent and appears dilated measuring 1.7 cm in transverse dimension. The visualized spleen, adrenals grossly appears unremarkable. The visualized pancreas grossly appears unremarkable The stomach is mildly distended. There is a focal diffuse masslike thickening identified in the distal gastric wall. The thickness measures 2.7 cm in is greatest dimension. The mass in the distal stomach measures 6.4 cm in transverse dimension, 5.9 cm in AP dimension. There is mild fat stranding identified about the distal stomach mass. There are multiple small nodular densities identified just inferior to the distal stomach mass with the largest measuring 9 mm. The small bowel is nondilated Feces and gas noted in the colon. There is mild stranding identified in the superior aspect of the transverse colon visualized just inferior to the distal stomach wall. There are few prominent retroperitoneal lymph nodes with the largest measuring 1.7 cm. The urinary bladder is mildly distended. The bilateral kidneys enhance symmetrically. Mild aortic atherosclerosis. Moderate degenerative changes lumbar spine. Impression: 1. Focal diffuse masslike thickening of the distal gastric wall as described above. Differential includes gastric malignancy, lymphoma, stromal tumor. Small nodular densities identified just inferior to the distal stomach probably lymph nodes /metastasis with the largest measuring 9 mm. 2. Minimal stranding identified in superior aspect of the transverse colon which lies just inferior to the stomach wall, suspect peritoneal infiltration from distal stomach pathology or due to reactive thickening. 3. Few prominent retroperitoneal lymph nodes identified in the largest measuring 1.7 cm. Could be reactive or metastasis. Follow-up PET/CT scan to be considered. 4. Prominent appearing common bile duct with common bile duct dilatation measuring 1.7 cm could be post cholecystectomy changes. Distal common bile duct obstruction is not completely excluded. Correlate with liver function tests.
== END | disposition home or self-care (01) ==
LOC: CT 08:50
PROVIDERS: ATTEND Internal Medicine Gastroenterology
DX: R19.00 Intra-abdominal and pelvic swelling, mass and lump, unspecified site (principal); I70.0 Atherosclerosis of aorta; K76.0 Fatty (change of) liver, not elsewhere classified
CPT/HCPCS: 74177; Q9966; Q9967

== ENCOUNTER → 2016-08-27 | Outpatient (CLI) | payer MEDICARE, MEDICAID ==
[2016-08-01 11:33] VITALS: BP 130/63
[~2016-08-27] MED LIST changes: -CONTRAST GIVEN MC PRN; -IOHEXOL 240 MG/ML 50ML VIAL. PO ONE; -IOHEXOL 300 MG/ML 75 ML VIAL IV ONE
== END | disposition home or self-care (01) ==
LOC: ECHO 09:28
PROVIDERS: ATTEND Internal Medicine Cardiovascular Disease
DX: I25.5 Ischemic cardiomyopathy (principal)
CPT/HCPCS: 93306

== ENCOUNTER → 2016-08-28 | Outpatient (CLI) | payer MEDICAID, MEDICARE ==
[2016-08-01 11:33] VITALS: BP 130/63
--- NOTE | 2016-08-28 16:55 | RAD ---
PET oncologic study 08/28/2016 Technique: Blood glucose prior to injection: 151 mg/dL Scan region: Skull base to mid thigh Radiopharmaceutical: F-18 FDG 13.29 mCi IV Calibration time: Start 1120 hours and finished at 1245 hours Administration time: 1128 hours on 08/28/2016 Injection site: Right antecubital Postinjection imaging delay: Scan time 1227 hours on 08/28/2016 Clinical information: Initial staging; stomach cancer. History of cholecystectomy and positive stomach biopsy. Comparison: CT abdomen/pelvis 08/05/2016 Attenuation correction was performed utilizing a noncontrast, nondiagnostic CT. Findings: Physiologic radiotracer uptake is identified in the visualized brain parenchyma and orbits. There is physiologic radiotracer uptake in the submandibular glands. There are scattered subcentimeter lymph nodes in the neck none of which are pathologically enlarged. There is a 11 mm right pretracheal lymph node which is not FDG avid (max SUV 1.6) . No pathologically enlarged axillary, mediastinal or hilar lymph nodes are present. Heart size is normal. Thoracic aorta is normal in size and caliber. Mild atherosclerotic indications are present. No pericardial effusion. There is a 5 mm noncalcified pulmonary nodule in the left upper lobe (series 3, image 104) there is a 4 mm noncalcified pulmonary nodule in the right lower lobe (series 3, image 127). No suspicious hepatic lesions are identified. Background liver uptake is Max SUV 2.7. There is a 5-6 cm segment of gastric antrum which demonstrates circumferential wall thickening (max SUV 13.2). A adjacent nodule is identified ventral to the gastric antrum measuring 14 x 11 mm (series 3, image 12) this nodule previously measured 12 x 6 mm on 08/05/2016. Grossly, the mass has increased in bulkiness. There is an 8 mm gastrohepatic lymph node (series 3, image 179), max SUV 2.2. Left periaortic lymph nodes are present measuring up to 14 x 9 mm (series 3, demonstrate 12), max SUV 1.3. Physiologic uptake is noted within the kidneys, ureters and urinary bladder as well as small and large bowel. Impression: 1. There is a 5-6 cm area of masslike, FDG avid circumferential bowel wall thickening of the gastric antrum compatible with biopsy-proven stomach carcinoma. There is a adjacent nodule ventral to the gastric antrum which has enlarged since 08/05/2016, currently measuring 14 x 11 mm. No FDG avid lymph nodes are identified above or below the diaphragm. 2. Borderline gastrohepatic and left para-aortic lymph nodes may be reactive.
== END | disposition home or self-care (01) ==
LOC: PETSC 10:41
PROVIDERS: ATTEND Internal Medicine Hematology & Oncology
DX: C16.2 Malignant neoplasm of body of stomach (principal)
CPT/HCPCS: 78815; A9552

== ENCOUNTER 2016-09-05 08:07 | Outpatient (CLI) | payer MEDICARE ==
[~2016-09-05] VITALS: Ht 152.4 cm; Wt 47.2 kg
[2016-09-05 08:36] LABS: BASO % 0 % (0-3); EOS % 2 % (0-3); HEMATOCRIT 26.6 % (36.0-47.0); HEMOGLOBIN 8.9 g/dL (12.0-15.5); LYMPH # 0.8 x10^3/uL (1.0-4.8); LYMPH % 12 % (24-48); MEAN CORPUSCULAR HEMOGLOBIN 29 pg (25-35); MEAN CORPUSCULAR HGB CONC 33 g/dL (31-37); MEAN CORPUSCULAR VOLUME 87 fL (79-100); MONO % 10 % (0-9); NEUT % 76 % (31-73); PLATELET COUNT 300 x10^3/uL (140-400); RED BLOOD COUNT 3.07 x10^6/uL (3.50-5.40); RED CELL DISTRIBUTION WIDTH 19.9 % (11.5-14.5); WHITE BLOOD COUNT 6.2 x10^3/uL (4.0-11.0)
[2016-09-05 08:57] LABS: INR 1.1 (0.8-1.1); PROTHROMBIN TIME PATIENT 13.3 SEC (11.7-14.0)
[2016-09-05 09:22] VITALS: BP 110/55
[2016-09-05] MEDS ORDERED: HEPARIN PF 500 UNIT/5 ML DISP.SYRIN. IV ONE ×2 (09:42→10:15)
[2016-09-05] MEDS ORDERED: LIDOCAINE 1%/EPI 1:100,000 20 ML VIAL. ONE (09:43)
[2016-09-05] MEDS ORDERED: CLINDAMYCIN 600MG PREMIX 50 ML IV ONE ×2 (09:46→10:45)
[2016-09-05] MEDS ORDERED: MIDAZOLAM HCL/PF 5 MG/5 ML VIAL. ONE (09:46)
[2016-09-05] MEDS ORDERED: fentaNYL PF VIAL 100 MCG/2 ML VIAL ONE (09:47)
[2016-09-05] MEDS ORDERED: fentaNYL PF VIAL 100 MCG/2 ML VIAL IV ONE (10:15)
[2016-09-05] MEDS ORDERED: LIDOCAINE 1%/EPI 1:100,000 20 ML VIAL. INJ ONE (10:15)
[2016-09-05] MEDS ORDERED: MIDAZOLAM HCL/PF 5 MG/5 ML VIAL. IV ONE (10:15)
[2016-09-05 10:38] VITALS: BP 113/48
[2016-09-05 10:55] VITALS: BP 118/61
[2016-09-05 11:10] VITALS: BP 118/61
[2016-09-05 11:30] VITALS: BP 130/58
--- NOTE | 2016-09-05 13:54 | RAD ---
Procedure: Ultrasound and fluoroscopically guided placement of right internal jugular power port.. 09/05/2016 1:49 PM Clinical Indication: CHEMOTHERAPY STOMACH CA Sedation: Conscious sedation was administered for 30 minutes. The patient was monitored by a qualified independent observer throughout the time of sedation. Please refer to the medical record for exact doses of medications utilized to achieve moderate sedation. Fluoroscopy time: 0.4 minutes Dose area product: 1 Gycm2 Consent: The procedure was explained in its entirety to the patient or the patients designated sales representative supervisor by a member of the treatment team, including a discussion of the risks, benefits and commonly accepted alternatives to the procedure, as well as the expected consequences of no therapy whatsoever. Discussion of the risks included, but was not limited to, those that are most frequent and those that are rare but possibly severe or life-threatening, as well as the possibility of unforeseen complications. Technique and Findings: All elements of maximal sterile barrier technique including the use of a cap, mask, sterile gown, sterile gloves, large sterile sheet, appropriate hand hygiene, and 2% chlorhexidine for cutaneous antisepsis (or acceptable alternative antiseptic per current guidelines) were followed for this procedure. Following informed consent, and a timeout procedure, the patient was prepped and draped in the usual sterile fashion. Ultrasound interrogation of the right neck revealed patency and compressibility of the right internal jugular vein. A 21-gauge micropuncture was then used to gain access to this vein under ultrasound guidance. A hard copy ultrasound image was recorded. The needle was exchanged over a wire for a sheath. A 1 inch incision was made several centimeters inferior to the sternotomy site. A catheter was tunneled from this site dermatotomy site in the neck. Catheter was advanced through peel-away sheath such that its tip was in the proximal right atrium with the patient supine. The catheter was trimmed to length and connected to the port reservoir. The port was found to flush and aspirate normally. The wound was closed in layers using 4-0 Vicryl suture. Sterile dressings were applied. Impression: Successful ultrasound and fluoroscopically guided placement of a right internal jugular PowerPort
== END 2016-09-05 12:15 | disposition home or self-care (01) ==
LOC: INTRAD 08:07
PROVIDERS: ATTEND Internal Medicine Hematology & Oncology
DX: C16.9 Malignant neoplasm of stomach, unspecified (principal); I10 Essential (primary) hypertension; J44.9 Chronic obstructive pulmonary disease, unspecified; K21.9 Gastro-esophageal reflux disease without esophagitis; M19.90 Unspecified osteoarthritis, unspecified site; D64.9 Anemia, unspecified; Z90.49 Acquired absence of other specified parts of digestive tract; Z87.39 Personal history of other diseases of the musculoskeletal system and connective tissue; Z86.39 Personal history of other endocrine, nutritional and metabolic disease; Z72.0 Tobacco use; Z88.0 Allergy status to penicillin; Z88.8 Allergy status to other drugs, medicaments and biological substances
CPT/HCPCS: 36415; 36561; 76937; 77001; 85027; 85610; 99152; 99153; C1751; C1887; C1892; J1644; J2250; J3010; J3490

== ENCOUNTER → 2016-11-27 | Outpatient (CLI) | payer MEDICARE, MEDICAID ==
[~2016-11-27] MED LIST changes: +DEXA4TAB PO; +METO-239 PO; +METO10TA PO; -METO25TA9 PO
--- NOTE | 2016-11-27 10:33 | CARD ---
APPROVED REPORT EXAM: Two-dimensional and M-mode echocardiogram with Doppler and color Doppler. Other Information Quality : Average Rhythm : NSR INDICATION Cardiomyopathy 2D DIMENSIONS RVDd2.7 (2.9-3.5cm)Left Atrium(2D)2.8 (1.6-4.0cm) IVSd1.0 (0.7-1.1cm)Aortic Root(2D)3.2 (2.0-3.7cm) LVDd4.4 (3.9-5.9cm)LVOT Diameter2.2 (1.8-2.4cm) PWd1.0 (0.7-1.1cm)LVDs3.4 (2.5-4.0cm) FS (%) 22.4 %SV40.1 ml LVEF(%)45.3 (>50%) Aortic Valve AoV Peak Mohit.128.4cm/sAoV VTI24.7cm AO Peak GR.6.6mmHgLVOT Peak Mohit.108.1cm/s AO Mean GR.3mmHgAVA (VMAX)3.20cm2 Mitral Valve MV E Skufzajw71.5cm/sMV E Peak Gr.3mmHg MV DECEL [id number] A Svofrigd92.7cm/s MV E Mean Gr.1mmHgMV PMU59fk E/A Ratio0.6MV A Toxyplti207go MVA (PHT)2.97cm2 Tricuspid Valve TR P. Mwsjrsxv213ol/sRAP [id number] TR Peak Gr.14lmIeLTVI03iiSr LEFT VENTRICLE The left ventricle is normal size. There is normal left ventricular wall thickness. Left ventricle sy stolic function is low normal. The Ejection Fraction is 45-50%. There is mild global hypokinesis of t he left ventricle but this may be due to bradycardia. Tissue Doppler imaging reveals mild left ventri cular diastolic dysfunction. There is no ventricular septal defect visualized. RIGHT VENTRICLE The right ventricle is normal size. The right ventricular systolic function is normal. ATRIA The left atrium size is normal. The right atrium size is normal. The interatrial septum is intact wit h no evidence for an atrial septal defect or patent foramen ovale as noted on 2-D or Doppler imaging. AORTIC VALVE The aortic valve is mildly calcified. The aortic valve is trileaflet. Doppler and Color Flow revealed no significant aortic regurgitation. There is no significant aortic valvular stenosis. MITRAL VALVE The mitral valve is normal in structure and function. There is no mitral valve stenosis. Doppler and Color Flow revealed no mitral valve regurgitation noted. TRICUSPID VALVE The tricuspid valve is normal in structure. Doppler and Color Flow revealed trace to mild tricuspid r egurgitation. The PA pressure was estimated at 30 mmHg. There is no tricuspid valve stenosis. PULMONIC VALVE The pulmonic valve is not well visualized. Doppler and Color Flow revealed no pulmonic valvular regur gitation. There is no pulmonic valvular stenosis. GREAT VESSELS The aortic root is normal in size. Pulmonary veins not recorded. The IVC is normal in size and collap ses >50% with inspiration. PERICARDIAL EFFUSION There is no evidence of significant pericardial effusion. Critical Notification Critical Value: No <Conclusion> Left ventricle systolic function is low normal. The Ejection Fraction is 45-50%. (No significant espinosa ge compared to prior echo dated 08/2016) There is mild global hypokinesis of the left ventricle but this may be due to bradycardia.
== END | disposition home or self-care (01) ==
LOC: ECHO 07:46
PROVIDERS: ATTEND Internal Medicine Cardiovascular Disease
DX: I07.1 Rheumatic tricuspid insufficiency (principal); I42.9 Cardiomyopathy, unspecified; I25.5 Ischemic cardiomyopathy
CPT/HCPCS: 93306

== ENCOUNTER → 2016-12-02 | Outpatient (CLI) | payer MEDICARE, MEDICAID ==
[~2016-12-02] MED LIST changes: +CONTRAST GIVEN MC PRN; -DEXA4TAB PO; +HEPARIN PF 500 UNIT/5 ML DISP.SYRIN. IV ONE; +IOHEXOL 240 MG/ML 50ML VIAL. PO ONE; +IOHEXOL 300 MG/ML 75 ML VIAL IV ONE; -METO10TA PO
[2016-12-02 09:28] LABS: CALCIUM 8.7 mg/dL (8.5-10.1); CREATININE 0.9 mg/dL (0.6-1.0); GFR 61.2; MAGNESIUM 1.8 mg/dL (1.8-2.4); POTASSIUM 4.1 mmol/L (3.5-5.1)
--- NOTE | 2016-12-02 13:04 | RAD ---
Indication restage gastric malignancy. Axial images through the chest, abdomen and pelvis were obtained. Both oral and IV contrast were administered. Approximately 75 cc of Omnipaque 300 was administered intravenously. Note is made of a previous examination of the abdomen and pelvis 08/05/2016. No dedicated prior CT imaging of the chest is available although note is made of a PET scan 08/28/2016. CT chest: Findings The thoracic aorta is unremarkable. Plaquing is noted involving the arch. There is a coronary artery stent. There is some mediastinal adenopathy. This appears similar to the referenced PET/CT examination and is likely incidental. Definite pathologic hilar or mediastinal adenopathy is not seen. There is some slight pleural-parenchymal scarring ventrally in the right upper lobe. There is no dominant soft tissue mass in either lung. A tiny pleural-based nodule in the left upper lobe, image 21 series 2 appears unchanged. Small nodule seen previously in the right lower lobe posteriorly is not reproduced on this exam. No acute finding is seen. Definite evidence of metastatic disease to the chest is not seen. CT abdomen and pelvis: Findings Gastric antral mass persists but is clearly smaller than on the previous exam compatible with a favorable therapeutic response. Previously the mass measured approximately 6 cm whereas a corresponding measurement now is approximately 3.7. The liver and spleen appear unremarkable. No pancreatic abnormality is seen. The adrenal glands and kidneys appear unremarkable. There are a few retroperitoneal lymph nodes which appear similar. An acute or new finding in the abdomen is not seen. No acute or new finding is seen in the pelvis. Occasional diverticula are seen associated with the large bowel. IMPRESSION: Known gastric antral mass persists but is smaller compatible with a favorable therapeutic response. An acute or new finding in the chest, abdomen or pelvis is not seen. Mild mediastinal adenopathy and retroperitoneal adenopathy appears similar. PQRS Compliance Statement: One or more of the following individualized dose reduction techniques were utilized for this examination: 1. Automated exposure control 2. Adjustment of the mA and/or kV according to patient size 3. Use of iterative reconstruction technique
== END | disposition home or self-care (01) ==
LOC: CT 08:59
PROVIDERS: ATTEND Internal Medicine Hematology & Oncology
DX: C16.2 Malignant neoplasm of body of stomach (principal); I10 Essential (primary) hypertension; E11.9 Type 2 diabetes mellitus without complications; J44.9 Chronic obstructive pulmonary disease, unspecified; I50.9 Heart failure, unspecified; Z87.891 Personal history of nicotine dependence
CPT/HCPCS: 36415; 71260; 74177; 80048; 83735; Q9966; Q9967

== ENCOUNTER 2017-01-06 05:55 | Inpatient (IN) | payer MEDICARE, MEDICAID ==
[2017-01-06] MEDS: IV RINGERS,LACTATED 1000ML 1,000 ML IV ×3 (06:47→20:47)
[2017-01-06] MEDS ORDERED: ONDANSETRON PF 4 MG/2 ML VIAL. IV ×2 (07:00→12:45)
[2017-01-06] MEDS ORDERED: PROCHLORPERAZINE 10 MG/2 ML VIAL. IV (07:00)
[2017-01-06] MEDS ORDERED: LIDOCAINE 1% PF 2 ML VIAL. ID (07:00)
[2017-01-06] MEDS ORDERED: fentaNYL PF VIAL 100 MCG/2 ML VIAL IV (07:00)
[2017-01-06] MEDS ORDERED: HYDROmorphone 2 MG/ML VIAL IV (07:00)
[2017-01-06] MEDS ORDERED: MORPHINE SULFATE 4 MG/ML DISP.SYRIN. IV (07:00)
[2017-01-06 07:25] LABS: ADD MAN DIFF? NO
[2017-01-06 07:29] LABS: BASO % 0 % (0-3); EOS % 0 % (0-3); HEMATOCRIT 33.2 % (36.0-47.0); HEMOGLOBIN 11.2 g/dL (12.0-15.5); LYMPH # 1.2 x10^3/uL (1.0-4.8); LYMPH % 16 % (24-48); MEAN CORPUSCULAR HEMOGLOBIN 32 pg (25-35); MEAN CORPUSCULAR HGB CONC 34 g/dL (31-37); MEAN CORPUSCULAR VOLUME 96 fL (79-100); MONO % 7 % (0-9); NEUT % 77 % (31-73); PLATELET COUNT 176 x10^3/uL (140-400); RED BLOOD COUNT 3.47 x10^6/uL (3.50-5.40); RED CELL DISTRIBUTION WIDTH 14.7 % (11.5-14.5); WHITE BLOOD COUNT 7.8 x10^3/uL (4.0-11.0)
[2017-01-06 07:36] LABS: ANION GAP 6 (6-14); BLOOD UREA NITROGEN 24 mg/dL (7-20); CALCIUM 9.1 mg/dL (8.5-10.1); CARBON DIOXIDE 30 mmol/L (21-32); CHLORIDE 94 mmol/L (98-107); CREATININE 0.8 mg/dL (0.6-1.0); GFR 70.1; GLUCOSE 97 mg/dL (70-99); POTASSIUM 3.2 mmol/L (3.5-5.1); SODIUM 130 mmol/L (136-145)
[2017-01-06] MEDS ORDERED: fentaNYL PF VIAL 100 MCG/2 ML VIAL (07:40)
[2017-01-06] MEDS ORDERED: MIDAZOLAM HCL/PF 2 MG/2 ML VIAL. (07:40)
[2017-01-06] MEDS ORDERED: ROCURONIUM 50 MG/5 ML VIAL. (07:41)
[2017-01-06] MEDS ORDERED: LIDOCAINE 2% PF Vial for OR 5 ML VIAL. (07:41)
[2017-01-06] MEDS ORDERED: ONDANSETRON PF 4 MG/2 ML VIAL. ×2 (07:41→12:02)
[2017-01-06] MEDS ORDERED: DEXAMETHASONE SOD PHOS 20 MG/5 ML VIAL. (07:41)
[2017-01-06] MEDS ORDERED: FAMOTIDINE 20 MG/2 ML VIAL (07:41)
[2017-01-06] MEDS ORDERED: PROPOFOL 20 ML IV (07:41)
[2017-01-06] MEDS ORDERED: BUPIVAC MPF-EPI 0.5%-1:200000 30 ML VIAL. (07:44)
[2017-01-06] MEDS ORDERED: LIDOCAINE 2% TOPICAL JELLY 5GM TUBE. TP (07:46)
[2017-01-06] MEDS ORDERED: SEVOFLURANE > 120 MINUTES. IH (07:47)
[2017-01-06] MEDS ORDERED: HYDROmorphone 2 MG/ML VIAL (07:50)
[2017-01-06] MEDS: CLINDAMYCIN 900MG PREMIX 50 ML IV (07:58)
[2017-01-06] MEDS ORDERED: 0.9 % SODIUM CHLORIDE 50 ML VIAL. IJ (08:22)
[2017-01-06] MEDS: BUPIVAC MPF-EPI 0.5%-1:200000 30 ML VIAL. INJ (09:16)
[2017-01-06] MEDS ORDERED: VECURONIUM BOLUS 10 MG VIAL. IV (10:03)
[2017-01-06] MEDS ORDERED: NALOXONE 0.4 MG/ML VIAL. IV (12:45)
[2017-01-06] MEDS ORDERED: 0.9 % SODIUM CHLORIDE 10 ML DISP.SYRIN. IV (12:45)
[2017-01-06] MEDS: fentaNYL PF VIAL 100 MCG/2 ML VIAL IV ×2 (13:40→13:50)
[2017-01-06] MEDS: IV NORMAL SALINE 250ML 250 ML IV ×2 (19:15→20:15)
[2017-01-06] MEDS: IV NORMAL SALINE 1000ML BAG 1,000 ML IV (20:37)
[2017-01-06] MEDS: IV NORMAL SALINE 500ML BAG 500 ML IV (23:27)
[2017-01-07 05:26] LABS: BASO % 0 % (0-3); EOS % 0 % (0-3); HEMATOCRIT 34.2 % (36.0-47.0); HEMOGLOBIN 11.3 g/dL (12.0-15.5); LYMPH # 0.5 x10^3/uL (1.0-4.8); LYMPH % 5 % (24-48); MEAN CORPUSCULAR HEMOGLOBIN 32 pg (25-35); MEAN CORPUSCULAR HGB CONC 33 g/dL (31-37); MEAN CORPUSCULAR VOLUME 98 fL (79-100); MONO % 4 % (0-9); NEUT % 91 % (31-73); PLATELET COUNT 161 x10^3/uL (140-400); RED CELL DISTRIBUTION WIDTH 14.9 % (11.5-14.5)
[2017-01-07 05:44] LABS: ADD MAN DIFF? YES
[2017-01-07 05:58] LABS: ANION GAP 7 (6-14); BLOOD UREA NITROGEN 28 mg/dL (7-20); CALCIUM 7.9 mg/dL (8.5-10.1); CARBON DIOXIDE 27 mmol/L (21-32); CHLORIDE 101 mmol/L (98-107); GFR 54.2; GLUCOSE 119 mg/dL (70-99); POTASSIUM 4.2 mmol/L (3.5-5.1); SODIUM 135 mmol/L (136-145)
[2017-01-07] MEDS: IV RINGERS,LACTATED 1000ML 1,000 ML IV ×2 (06:29→22:59)
[2017-01-07] MEDS: ENOXAPARIN 40 MG/0.4 ML SYRINGE. SQ (08:36)
[2017-01-07 09:28] LABS: ANISOCYTOSIS PRESENT; PLT ESTIMATE ADEQUATE (ADEQUATE)
[2017-01-07] MEDS: IV NORMAL SALINE 1000ML BAG 1,000 ML IV (12:38)
[2017-01-07] MEDS: IV RINGERS,LACTATED 500ML 500 ML IV (13:00)
[2017-01-07 14:25] LABS: MRSA BY PCR Negative (Negative)
[2017-01-08] MEDS: IV RINGERS,LACTATED 1000ML 1,000 ML IV ×3 (02:45→22:45)
[2017-01-08] MEDS: ENOXAPARIN 40 MG/0.4 ML SYRINGE. SQ (08:36)
[2017-01-08] MEDS: IV NORMAL SALINE 1000ML BAG 1,000 ML IV (12:38)
[2017-01-08 18:32] LABS: POC GLUCOSE 54 mg/dL (70-99)
[2017-01-08] MEDS: DEXTROSE 50% 25 GM / 50ML DISP.SYRIN. IV (20:16)
[2017-01-08 20:28] LABS: POC GLUCOSE 47 mg/dL (70-99)
[2017-01-08 20:41] LABS: POC GLUCOSE 143 mg/dL (70-99)
[2017-01-09 06:27] LABS: POC GLUCOSE 59 mg/dL (70-99)
[2017-01-09 07:02] LABS: POC GLUCOSE 89 mg/dL (70-99)
[2017-01-09] MEDS: ENOXAPARIN 40 MG/0.4 ML SYRINGE. SQ (08:57)
[2017-01-09] MEDS ORDERED: FLU VACC QS2017-18 (36MOS+)/PF 0.5 ML SYRINGE. VAX IM (09:00)
[2017-01-09] MEDS: METOPROLOL SUCC 24HR ER 25 MG TAB.ER.24H. PO ×2 (10:30→20:50)
[2017-01-09 12:04] LABS: POC GLUCOSE 65 mg/dL (70-99)
[2017-01-09] MEDS: IV RINGERS,LACTATED 1000ML 1,000 ML IV (12:06)
[2017-01-09] MEDS: IV NORMAL SALINE 1000ML BAG 1,000 ML IV (12:38)
[2017-01-09 17:51] LABS: POC GLUCOSE 56 mg/dL (70-99)
[2017-01-09] MEDS: DEXTROSE 50% 25 GM / 50ML DISP.SYRIN. IV (17:53)
[2017-01-09 18:22] LABS: POC GLUCOSE 100 mg/dL (70-99)
[2017-01-09] MEDS: IV DEXTROSE 5%-LACT RINGERS 1,000 ML IV (19:13)
[2017-01-09] MEDS ORDERED: ALBUTEROL SULFATE 2.5 MG/3 ML NEBU. NEB (19:45)
[2017-01-09] MEDS: ALBUTEROL SULFATE 2.5 MG/3 ML NEBU. NEB (19:49)
[2017-01-10] MEDS: IV DEXTROSE 5%-LACT RINGERS 1,000 ML IV (04:55)
[2017-01-10] MEDS: ALBUTEROL SULFATE 2.5 MG/3 ML NEBU. NEB ×3 (07:36→20:37)
[2017-01-10] MEDS: ENOXAPARIN 40 MG/0.4 ML SYRINGE. SQ (08:58)
[2017-01-10] MEDS: METOPROLOL SUCC 24HR ER 25 MG TAB.ER.24H. PO ×2 (09:00→21:47)
[2017-01-10 11:41] LABS: ANION GAP 2 (6-14); BLOOD UREA NITROGEN 13 mg/dL (7-20); CALCIUM 7.9 mg/dL (8.5-10.1); CARBON DIOXIDE 31 mmol/L (21-32); CHLORIDE 100 mmol/L (98-107); CREATININE 0.6 mg/dL (0.6-1.0); GFR 97.7; GLUCOSE 127 mg/dL (70-99); POTASSIUM 3.1 mmol/L (3.5-5.1); SODIUM 133 mmol/L (136-145)
[2017-01-10] MEDS: IV NORMAL SALINE 1000ML BAG 1,000 ML IV (14:08)
[2017-01-10] MEDS: AMINO AC 3%/ELECTROLYTE/GLYCER 1,000 ML IV ×2 (14:08→21:48)
[2017-01-10] MEDS: ACETAMINOPHEN 325 MG TABLET. PO (21:47)
[2017-01-11] MEDS: ACETAMINOPHEN 325 MG TABLET. PO ×2 (06:21→15:13)
[2017-01-11] MEDS: ALBUTEROL SULFATE 2.5 MG/3 ML NEBU. NEB ×3 (07:24→19:38)
[2017-01-11] MEDS: IV NORMAL SALINE 1000ML BAG 1,000 ML IV (12:38)
[2017-01-11] MEDS: AMINO AC 3%/ELECTROLYTE/GLYCER 1,000 ML IV (13:51)
[2017-01-11] MEDS: ENOXAPARIN 40 MG/0.4 ML SYRINGE. SQ (13:51)
[2017-01-11] MEDS: METOPROLOL SUCC 24HR ER 25 MG TAB.ER.24H. PO ×2 (13:52→21:00)
[2017-01-11] MEDS: POTASSIUM CHLORIDE 10 MEQ TABLET.ER. PO ×3 (13:52→18:21)
[2017-01-12] MEDS: AMINO AC 3%/ELECTROLYTE/GLYCER 1,000 ML IV ×2 (02:11→14:38)
[2017-01-12] MEDS: ACETAMINOPHEN 325 MG TABLET. PO (06:29)
[2017-01-12] MEDS: ALBUTEROL SULFATE 2.5 MG/3 ML NEBU. NEB ×3 (07:07→19:49)
[2017-01-12] MEDS ORDERED: VANCOMYCIN 1 GM in IV DEXTROSE 5% 250 ML IV (09:00)
[2017-01-12] MEDS: METOPROLOL SUCC 24HR ER 25 MG TAB.ER.24H. PO ×2 (09:00→20:41)
[2017-01-12] MEDS ORDERED: MEROPENEM IV Push 1 GM VIAL. IVP (09:00)
[2017-01-12] MEDS: POTASSIUM CHLORIDE 10 MEQ TABLET.ER. PO ×3 (09:14→18:00)
[2017-01-12] MEDS: IV NORMAL SALINE 1000ML BAG 1,000 ML IV ×3 (09:19→23:47)
[2017-01-12] MEDS: ENOXAPARIN 40 MG/0.4 ML SYRINGE. SQ (09:24)
[2017-01-12] MEDS: MEROPENEM 1 GM in IV NORMAL SALINE 100ML 100 ML IV (09:24)
[2017-01-12] MEDS ORDERED: CONTRAST GIVEN MC (09:30)
[2017-01-12 09:45] LABS: ADD MAN DIFF? NO
[2017-01-12 10:14] LABS: POTASSIUM 3.3 mmol/L (3.5-5.1)
[2017-01-12 10:21] LABS: BASO % 0 % (0-3); EOS % 0 % (0-3); LYMPH # 0.2 x10^3/uL (1.0-4.8); LYMPH % 3 % (24-48); MEAN CORPUSCULAR HEMOGLOBIN 33 pg (25-35); MEAN CORPUSCULAR HGB CONC 34 g/dL (31-37); MEAN CORPUSCULAR VOLUME 95 fL (79-100); MONO % 5 % (0-9); NEUT % 91 % (31-73); PLATELET COUNT 123 x10^3/uL (140-400); RED BLOOD COUNT 2.15 x10^6/uL (3.50-5.40); RED CELL DISTRIBUTION WIDTH 14.7 % (11.5-14.5); WHITE BLOOD COUNT 7.3 x10^3/uL (4.0-11.0)
[2017-01-12 10:40] LABS: HEMATOCRIT 20.4 % (36.0-47.0)
[2017-01-12 10:47] LABS: MAGNESIUM 1.3 mg/dL (1.8-2.4); PHOSPHORUS 1.3 mg/dL (2.6-4.7)
[2017-01-12 10:47] LABS: ALBUMIN 1.2 g/dL (3.4-5.0)
[2017-01-12] MEDS: IOHEXOL 240 MG/ML 50ML VIAL. PO (11:35)
[2017-01-12] MEDS: IOHEXOL 300 MG/ML 100ML VIAL. IV (11:35)
[2017-01-12] MEDS: VANCOMYCIN 1.5 GM in IV DEXTROSE 5 %-0.2 % NACL 500 ML IV (12:29)
[2017-01-12] MEDS: VANCOMYCIN PER PHARMACY MC ×2 (12:46→12:57)
[2017-01-12] MEDS: TPN PER PHARMACY MC (13:00)
[2017-01-12] MEDS ORDERED: MEROPENEM 1 GM in IV NORMAL SALINE 100ML 100 ML IV (14:00)
[2017-01-12] MEDS ORDERED: IV RINGERS,LACTATED 1000ML 1,000 ML IV (14:14)
[2017-01-12] MEDS ORDERED: ONDANSETRON PF 4 MG/2 ML VIAL. IV (14:15)
[2017-01-12] MEDS ORDERED: MORPHINE SULFATE 2 MG/ML DISP.SYRIN. IV ×2 (14:15→20:00)
[2017-01-12] MEDS ORDERED: fentaNYL PF VIAL 100 MCG/2 ML VIAL IV ×2 (14:15)
[2017-01-12] MEDS ORDERED: HYDROmorphone 2 MG/ML VIAL IV (14:15)
[2017-01-12] MEDS ORDERED: PROCHLORPERAZINE 10 MG/2 ML VIAL. IV (14:15)
[2017-01-12] MEDS ORDERED: LIDOCAINE 1% PF 2 ML VIAL. ID (14:15)
[2017-01-12] MEDS: MAGNESIUM SULFATE 2GM 50 ML IV (14:39)
[2017-01-12] MEDS: POTASSIUM PHOSPHATE DIBASIC 10 MMOL in IV NORMAL SALINE 100ML 100 ML IV ×3 (14:43→17:00)
[2017-01-12] MEDS ORDERED: DESFLURANE > 120 MINUTES IH (16:19)
[2017-01-12] MEDS ORDERED: fentaNYL PF VIAL 100 MCG/2 ML VIAL ×3 (16:19→18:01)
[2017-01-12] MEDS ORDERED: GLYCOPYRROLATE 1 MG/5 ML VIAL. ×2 (16:19→17:44)
[2017-01-12] MEDS ORDERED: ROCURONIUM 50 MG/5 ML VIAL. (16:19)
[2017-01-12] MEDS ORDERED: DEXAMETHASONE SOD PHOS 20 MG/5 ML VIAL. (16:19)
[2017-01-12] MEDS ORDERED: NEOSTIGMINE 10 MG/10 ML VIAL. ×2 (16:19→17:44)
[2017-01-12] MEDS ORDERED: ONDANSETRON PF 4 MG/2 ML VIAL. (16:19)
[2017-01-12] MEDS ORDERED: LIDOCAINE 2% PF Vial for OR 5 ML VIAL. (16:19)
[2017-01-12] MEDS ORDERED: ETOMIDATE 20 MG/10 ML VIAL. IV (16:20)
[2017-01-12] MEDS ORDERED: 0.9 % SODIUM CHLORIDE 50 ML VIAL. IJ (16:30)
[2017-01-12] MEDS ORDERED: ALBUMIN HUMAN 5% 500 ML IV (16:32)
[2017-01-12] MEDS ORDERED: PHENYLEPHRINE 10 MG/ML VIAL. (17:14)
[2017-01-12] MEDS ORDERED: PROPOFOL 100 ML IV (18:37)
[2017-01-12] MEDS: PROPOFOL 100 ML IV (19:00)
[2017-01-12] MEDS ORDERED: HYDROmorphone 2 MG/ML VIAL IVP ×5 (19:15)
[2017-01-12] MEDS: BUDESONIDE 0.5 MG/2 ML NEBU. NEB (19:50)
[2017-01-12] MEDS ORDERED: 0.9 % SODIUM CHLORIDE 10 ML DISP.SYRIN. IV (20:00)
[2017-01-12] MEDS ORDERED: ENOXAPARIN 40 MG/0.4 ML SYRINGE. SQ (20:00)
[2017-01-12 20:01] LABS: HCO3 ABG 20 mmol/L (21-28); PCO2 ABG 31 mmHg (35-46); PH ABG 7.43 (7.35-7.45); PO2 ABG 92 mmHg (65-108); SAT O2 ABG 97 % (92-99)
[2017-01-12 20:45] LABS: FIO2 ABG 100
[2017-01-12 21:26] LABS: ADD MAN DIFF? NO
[2017-01-12 21:29] LABS: BASO % 0 % (0-3); EOS % 1 % (0-3); HEMATOCRIT 27.8 % (36.0-47.0); HEMOGLOBIN 9.2 g/dL (12.0-15.5); LYMPH # 0.3 x10^3/uL (1.0-4.8); LYMPH % 13 % (24-48); MEAN CORPUSCULAR HEMOGLOBIN 32 pg (25-35); MEAN CORPUSCULAR HGB CONC 33 g/dL (31-37); MEAN CORPUSCULAR VOLUME 97 fL (79-100); MONO % 3 % (0-9); NEUT % 83 % (31-73); PLATELET COUNT 155 x10^3/uL (140-400); RED BLOOD COUNT 2.88 x10^6/uL (3.50-5.40); RED CELL DISTRIBUTION WIDTH 14.6 % (11.5-14.5); WHITE BLOOD COUNT 2.3 x10^3/uL (4.0-11.0)
[2017-01-12] MEDS: HYDROmorphone 2 MG/ML VIAL IVP (21:49)
[2017-01-12 22:33] LABS: HCO3 ABG 17 mmol/L (21-28); PCO2 ABG 35 mmHg (35-46); PH ABG 7.31 (7.35-7.45); PO2 ABG 70 mmHg (65-108); SAT O2 ABG 91 % (92-99)
[2017-01-12] MEDS: NOREPINEPHRIN PREMIX 250 ML IV (22:37)
[2017-01-12 22:46] LABS: LACTIC ACID 3.4 mmol/L (0.4-2.0)
[2017-01-12] MEDS: DIGOXIN IV 500 MCG/2 ML AMPUL. IV (23:25)
[2017-01-12 23:28] LABS: FIO2 ABG 90
[2017-01-12] MEDS ORDERED: SODIUM BICARB ADULT 8.4% 50 MEQ/50 ML DISP.SYRIN. (23:31)
[2017-01-12] MEDS: SODIUM BICARB ADULT 8.4% 50 MEQ/50 ML DISP.SYRIN. IV ×2 (23:44)
[2017-01-12] MEDS: VASOPRESSIN 40 UNIT in IV DEXTROSE 5% 100 ML IV (23:48)
[2017-01-12] MEDS: SODIUM BICARBONATE VIAL 150 MEQ in IV DEXTROSE 5% 1,000 ML IV (23:54)
[2017-01-13] MEDS: MIDAZOLAM 100MG/100ML PREMIX 100 ML IV ×2 (00:02→20:12)
[2017-01-13] MEDS: MEROPENEM 1 GM in IV NORMAL SALINE 100ML 100 ML IV ×3 (00:39→21:10)
[2017-01-13] MEDS: IV NORMAL SALINE 1000ML BAG 1,000 ML IV ×4 (00:50→22:52)
[2017-01-13] MEDS: TOTAL PARENTERAL NUTRITION IV ×2 (01:04→22:18)
[2017-01-13] MEDS: DEXTROSE 70% IV ×2 (01:04→22:18)
[2017-01-13] MEDS: [UNRECOGNIZED DRUG - OTHER] IV (01:04)
[2017-01-13] MEDS: AMINO ACIDS IV ×2 (01:04→22:18)
[2017-01-13] MEDS: PHENYLEPHRINE INJ 20 MG in IV NORMAL SALINE 250ML 250 ML IV (01:37)
[2017-01-13] MEDS: NOREPINEPHRIN PREMIX 250 ML IV ×5 (03:40→22:54)
[2017-01-13] MEDS: PHENYLEPHRINE INJ 80 MG in IV NORMAL SALINE 250ML 250 ML IV ×2 (04:03→11:13)
[2017-01-13 05:11] LABS: ADD MAN DIFF? NO
[2017-01-13 05:24] LABS: BASO % 0 % (0-3); EOS % 1 % (0-3); HEMATOCRIT 26.1 % (36.0-47.0); HEMOGLOBIN 8.2 g/dL (12.0-15.5); LYMPH # 0.3 x10^3/uL (1.0-4.8); LYMPH % 4 % (24-48); MEAN CORPUSCULAR HEMOGLOBIN 31 pg (25-35); MEAN CORPUSCULAR HGB CONC 31 g/dL (31-37); MEAN CORPUSCULAR VOLUME 100 fL (79-100); MONO % 3 % (0-9); NEUT % 93 % (31-73); PLATELET COUNT 113 x10^3/uL (140-400); RED BLOOD COUNT 2.61 x10^6/uL (3.50-5.40); RED CELL DISTRIBUTION WIDTH 15.7 % (11.5-14.5); WHITE BLOOD COUNT 8.7 x10^3/uL (4.0-11.0)
[2017-01-13] MEDS: VANCOMYCIN 1 GM in IV NORMAL SALINE 250ML 250 ML IV (05:45)
[2017-01-13 07:01] LABS: ANION GAP 17 (6-14); BLOOD UREA NITROGEN 20 mg/dL (7-20); CARBON DIOXIDE 13 mmol/L (21-32); CHLORIDE 103 mmol/L (98-107); CREATININE 1.2 mg/dL (0.6-1.0); GFR 43.9; GLUCOSE 151 mg/dL (70-99); MAGNESIUM 1.7 mg/dL (1.8-2.4); PHOSPHORUS 3.7 mg/dL (2.6-4.7); POTASSIUM 4.3 mmol/L (3.5-5.1); SODIUM 133 mmol/L (136-145); TRIGLYCERIDES 57 mg/dL (0-150)
[2017-01-13 07:06] LABS: CALCIUM 5.8 mg/dL (8.5-10.1)
[2017-01-13] MEDS: ALBUTEROL SULFATE 2.5 MG/3 ML NEBU. NEB ×3 (07:25→19:34)
[2017-01-13] MEDS: BUDESONIDE 0.5 MG/2 ML NEBU. NEB ×2 (07:25→19:34)
[2017-01-13 08:44] LABS: POC GLUCOSE 141 mg/dL (70-99)
[2017-01-13 08:46] LABS: HCO3 ABG 8 mmol/L (21-28); PCO2 ABG 28 mmHg (35-46); PO2 ABG 190 mmHg (65-108); SAT O2 ABG 99 % (92-99)
[2017-01-13 08:48] LABS: FIO2 ABG 100; PH ABG 7.07 (7.35-7.45)
[2017-01-13] MEDS: POTASSIUM CHLORIDE 10 MEQ TABLET.ER. PO ×3 (09:00→18:00)
[2017-01-13] MEDS: METOPROLOL SUCC 24HR ER 25 MG TAB.ER.24H. PO ×2 (09:00→20:14)
[2017-01-13] MEDS: SODIUM BICARB ADULT 8.4% 50 MEQ/50 ML DISP.SYRIN. IV ×3 (09:39→20:13)
[2017-01-13] MEDS ORDERED: LIDOCAINE 1% / SOD BICARB 8.4% 20 ML VIAL. IJ (09:54)
[2017-01-13] MEDS ORDERED: HEPARIN for IV BOLUS 10,000 UNIT/10 ML VIAL. ×2 (09:54→10:06)
[2017-01-13] MEDS: CALCIUM CHLORIDE 1,000 MG/10 ML DISP.SYRIN IV (09:58)
[2017-01-13] MEDS: LIDOCAINE 1% / SOD BICARB 8.4% 20 ML VIAL. IJ (10:43)
[2017-01-13] MEDS: HYDROCORTISONE SOD SUCC/PF 100 MG/2 ML VIAL. IV ×3 (11:16→22:18)
[2017-01-13] MEDS: SODIUM BICARBONATE VIAL 150 MEQ in IV DEXTROSE 5% 1,000 ML IV ×2 (11:55→22:17)
[2017-01-13] MEDS: TPN PER PHARMACY MC ×2 (13:57→13:58)
[2017-01-13] MEDS ORDERED: VANCOMYCIN 1 GM in IV NORMAL SALINE 250ML 250 ML IV (14:15)
[2017-01-13] MEDS: VANCOMYCIN PER PHARMACY MC (14:28)
[2017-01-13] MEDS: [UNRECOGNIZED DRUG - OTHER] IV ×4 (14:45→20:26)
[2017-01-13] MEDS: CALCIUM CHLORIDE IV ×4 (14:45→20:26)
[2017-01-13] MEDS: POTASSIUM CHLORIDE IV ×4 (14:45→20:26)
[2017-01-13] MEDS: VASOPRESSIN 40 UNIT in IV DEXTROSE 5% 100 ML IV (15:38)
[2017-01-13 15:57] LABS: FIO2 ABG 60; HCO3 ABG 9 mmol/L (21-28); PCO2 ABG 29 mmHg (35-46); PH ABG 7.09 (7.35-7.45); PO2 ABG 96 mmHg (65-108); SAT O2 ABG 95 % (92-99)
[2017-01-13] MEDS: [UNRECOGNIZED DRUG - OTHER] IV (22:18)
[2017-01-13] MEDS: DEXTROSE 5% IV (22:52)
[2017-01-13] MEDS: PHENYLEPHRINE IV (22:52)
[2017-01-14 02:32] LABS: PROTHROMBIN TIME PATIENT 108.4 SEC (11.7-14.0)
[2017-01-14 02:50] LABS: ANION GAP 19 (6-14); BLOOD UREA NITROGEN 18 mg/dL (7-20); CARBON DIOXIDE 12 mmol/L (21-32); CHLORIDE 106 mmol/L (98-107); CREATININE 1.1 mg/dL (0.6-1.0); GFR 48.6; GLUCOSE 257 mg/dL (70-99); MAGNESIUM 1.8 mg/dL (1.8-2.4); POTASSIUM 4.8 mmol/L (3.5-5.1); SODIUM 137 mmol/L (136-145)
[2017-01-14 02:53] LABS: CALCIUM 5.4 mg/dL (8.5-10.1)
[2017-01-14 02:58] LABS: INR > 15.0 (0.8-1.1)
[2017-01-14 02:59] LABS: PARTIAL THROMBOPLASTIN TIME > 150 SEC (24-38)
[2017-01-14] MEDS: CALCIUM GLUCONATE 1,000 MG/10 ML VIAL. IVP (03:47)
[2017-01-14] MEDS: POTASSIUM CHLORIDE IV ×3 (03:49→03:50)
[2017-01-14] MEDS: [UNRECOGNIZED DRUG - OTHER] IV ×3 (03:49→03:50)
[2017-01-14] MEDS: CALCIUM CHLORIDE IV ×3 (03:49→03:50)
[2017-01-14] MEDS: DEXTROSE 5% IV (03:49)
[2017-01-14] MEDS: PHENYLEPHRINE IV (03:49)
[2017-01-14] MEDS: NOREPINEPHRIN PREMIX 250 ML IV (03:57)
[2017-01-14] MEDS ORDERED: VANCOMYCIN 1 GM in IV NORMAL SALINE 250ML 250 ML IV (06:00)
[2017-01-14] MEDS: VANCOMYCIN PER PHARMACY MC (06:09)
[2017-01-14] MEDS: HYDROCORTISONE SOD SUCC/PF 100 MG/2 ML VIAL. IV (06:12)
[2017-01-14] MEDS: VANCOMYCIN 1 GM in IV DEXTROSE 5% 250 ML IV (06:12)
[2017-01-14 08:14] LABS: BASO % 0 % (0-3); EOS % 5 % (0-3); LYMPH % 12 % (24-48); MEAN CORPUSCULAR HEMOGLOBIN 38 pg (25-35); MEAN CORPUSCULAR HGB CONC 35 g/dL (31-37); MEAN CORPUSCULAR VOLUME 110 fL (79-100); MONO % 1 % (0-9); NEUT % 81 % (31-73); RED BLOOD COUNT 1.14 x10^6/uL (3.50-5.40); RED CELL DISTRIBUTION WIDTH 17.1 % (11.5-14.5); WHITE BLOOD COUNT 8.2 x10^3/uL (4.0-11.0)
[2017-01-14 08:18] LABS: HEMOGLOBIN 4.3 g/dL (12.0-15.5)
[2017-01-14 08:19] LABS: ADD MAN DIFF? YES; HEMATOCRIT 12.5 % (36.0-47.0); PLATELET COUNT 18 x10^3/uL (140-400)
[2017-01-14 08:22] LABS: ANION GAP 22 (6-14); CHLORIDE 105 mmol/L (98-107); MAGNESIUM 1.8 mg/dL (1.8-2.4); PHOSPHORUS 5.8 mg/dL (2.6-4.7); POTASSIUM 5.6 mmol/L (3.5-5.1); SODIUM 136 mmol/L (136-145)
[2017-01-14] MEDS: METOPROLOL SUCC 24HR ER 25 MG TAB.ER.24H. PO (08:24)
[2017-01-14] MEDS: POTASSIUM CHLORIDE 10 MEQ TABLET.ER. PO (08:24)
[2017-01-14 08:27] LABS: CARBON DIOXIDE 9 mmol/L (21-32)
[2017-01-14] MEDS: BUDESONIDE 0.5 MG/2 ML NEBU. NEB (08:49)
[2017-01-14] MEDS: ALBUTEROL SULFATE 2.5 MG/3 ML NEBU. NEB (08:49)
[2017-01-14 09:08] LABS: CORRECTED PCO2 ABG 27 mmHg; CORRECTED PO2 ABG 116 mmHg; HCO3 ABG 9 mmol/L (21-28); PCO2 ABG 34 mmHg (35-46); PO2 ABG 142 mmHg (65-108); SAT O2 ABG 98 % (92-99)
[2017-01-14 09:09] LABS: FIO2 ABG 60; PH ABG 7.04 (7.35-7.45)
[2017-01-14 09:28] LABS: ANISOCYTOSIS SLIGHT; PLT ESTIMATE DECREASED (ADEQUATE)
[2017-01-14 09:29] LABS: BURR CELLS OCC
[2017-01-14 10:03] LABS: IMMEDIATE SPIN CROSSMATCH 1 4
[2017-01-14] MEDS: VASOPRESSIN 40 UNIT in IV DEXTROSE 5% 100 ML IV (10:10)
[2017-01-14] MEDS: POTASSIUM CHLORIDE 10 MEQ, CALCIUM CHLORIDE 12.5 MEQ in DIALYSIS SOLUTION BGK 2/0 5,000 ML IV ×3 (10:12→10:13)
[2017-01-14] MEDS: MEROPENEM 1 GM in IV NORMAL SALINE 100ML 100 ML IV (10:15)
== END 2017-01-14 17:30 | disposition expired | DRG 326 ==
LOC: OPSVCIP 05:55 → 4 NORTH 01-08 13:35 → 1 WEST ICU 13:12
PROC: 0WJP4ZZ Inspection of Gastrointestinal Tract, Percutaneous Endoscopic Approach (ICD-10-PCS; principal; 2017-01-06 08:00)
PROC: 0DBL0ZZ Excision of Transverse Colon, Open Approach (ICD-10-PCS; 2017-01-06 08:00)
PROC: 0DB60ZZ Excision of Stomach, Open Approach (ICD-10-PCS; 2017-01-06 08:00)
PROC: 0DNW0ZZ Release Peritoneum, Open Approach (ICD-10-PCS; 2017-01-06 08:00)
PROC: 07BB0ZX Excision of Mesenteric Lymphatic, Open Approach, Diagnostic (ICD-10-PCS; 2017-01-06 08:00)
PROC: 0D1B0Z4 Bypass Ileum to Cutaneous, Open Approach (ICD-10-PCS; 2017-01-06 08:00)
PROC: 0DB90ZZ Excision of Duodenum, Open Approach (ICD-10-PCS; 2017-01-06 08:00)
PROC: 0BH17EZ Insertion of Endotracheal Airway into Trachea, Via Natural or Artificial Opening (ICD-10-PCS; 2017-01-06 08:00)
PROC: 5A1945Z Respiratory Ventilation, 24-96 Consecutive Hours (ICD-10-PCS; 2017-01-06 08:00)
PROC: 30233N1 Transfusion of Nonautologous Red Blood Cells into Peripheral Vein, Percutaneous Approach (ICD-10-PCS; 2017-01-06 08:00)
PROC: 0DH60UZ Insertion of Feeding Device into Stomach, Open Approach (ICD-10-PCS; 2017-01-06 08:00)
DX: C16.9 Malignant neoplasm of stomach, unspecified (principal); A41.9 Sepsis, unspecified organism; D65 Disseminated intravascular coagulation [defibrination syndrome]; E43 Unspecified severe protein-calorie malnutrition; J96.01 Acute respiratory failure with hypoxia; K63.1 Perforation of intestine (nontraumatic); K65.1 Peritoneal abscess; N17.0 Acute kidney failure with tubular necrosis; R65.21 Severe sepsis with septic shock; I42.0 Dilated cardiomyopathy; E87.2 Acidosis; J98.11 Atelectasis; E83.51 Hypocalcemia; I27.20 Pulmonary hypertension, unspecified; D63.0 Anemia in neoplastic disease; Z66 Do not resuscitate; E11.9 Type 2 diabetes mellitus without complications; K21.9 Gastro-esophageal reflux disease without esophagitis; I25.10 Atherosclerotic heart disease of native coronary artery without angina pectoris; I50.9 Heart failure, unspecified; I25.5 Ischemic cardiomyopathy; I11.0 Hypertensive heart disease with heart failure; D64.9 Anemia, unspecified; H54.61 Unqualified visual loss, right eye, normal vision left eye; E78.5 Hyperlipidemia, unspecified; M19.90 Unspecified osteoarthritis, unspecified site; F17.200 Nicotine dependence, unspecified, uncomplicated; E86.0 Dehydration; Z88.0 Allergy status to penicillin; Z68.30 Body mass index [BMI] 30.0-30.9, adult; Z88.6 Allergy status to analgesic agent; Z95.5 Presence of coronary angioplasty implant and graft; Z90.49 Acquired absence of other specified parts of digestive tract; Z98.51 Tubal ligation status; Z80.42 Family history of malignant neoplasm of prostate; Z83.3 Family history of diabetes mellitus; I25.2 Old myocardial infarction; Z83.49 Family history of other endocrine, nutritional and metabolic diseases; Z82.61 Family history of arthritis
CPT/HCPCS: 36415; 36556; 36600; 71010; 74000; 74177; 76937; 80048; 80051; 80202; 82040; 82805; 82962; 83605; 83735; 84100; 84132; 84478; 85007; 85025; 85610; 85730; 86850; 86900; 86901; 86920; 87040; 87070; 87071; 87075; 87186; 87205; 87340; 87341; 87641; 88305; 88307; 88309; 88312; 88341; 88342; 94002; 94003; 94640; 94760; 97110-GP; 97116-GP; 97162-GP; 97166-GO; 99406; C1892; J0610; J1100; J1160; J1170; J1265; J1644; J1650; J1720; J2185; J2250; J2405; J2704; J2710; J3010; J3370; J3475; J3490; J7030; J7040; J7042; J7050; J7060; J7120; J7613; J7626; P9016; P9045; Q9966; Q9967; S0028